=== PATIENT | male | born 1955 | race Caucasian/White ===

== ENCOUNTER 2023-05-19 14:34 | Inpatient (IN) | payer MEDICARE, OTHER ==
[~2023-05-19] VITALS: Ht 177.8 cm; Wt 81.6 kg
[2023-05-19] MEDS ORDERED: IV NORMAL SALINE 1000 ML BAG IV ONE ×2 (14:45→15:45)
--- NOTE | 2023-05-19 15:14 | NUR ---
BIB ambulance from [facility], with multiple c/o. Sacral wound drsg. dated 05/04/23, right arm port drsg. dated 04/30/23 and rodriguez cath bag with brownish sediment noted. Patient cleaned of moderate amount of stool, repositioned for comfort, bedside EKG in progress for MD review. LLE with drsg intact.
[2023-05-19 15:22] LABS: HEMATOCRIT 30.5 % (36.7-47.1); PLATELET COUNT (AUTO) 408 K/uL (152-348)
[2023-05-19] MEDS ORDERED: AMLO-212 PO (15:26)
[2023-05-19] MEDS ORDERED: CYAN100T44 PO (15:26)
[2023-05-19] MEDS ORDERED: ASPI81TA31 PO (15:26)
[2023-05-19] MEDS ORDERED: ASCO500C18 PO (15:26)
[2023-05-19] MEDS ORDERED: ACET-2030 PO (15:26)
[2023-05-19] MEDS ORDERED: [UNRECOGNIZED DRUG - OTHER] PO (15:26)
[2023-05-19] MEDS ORDERED: CHLO25TA2 PO (15:26)
[2023-05-19] MEDS ORDERED: PEG15DRO5 EACHEYE (15:26)
[2023-05-19] MEDS ORDERED: LUBI24CA5 PO (15:26)
[2023-05-19] MEDS ORDERED: ALLO300T2 PO (15:26)
[2023-05-19] MEDS ORDERED: HYDR28.316 TP (15:26)
[2023-05-19] MEDS ORDERED: CYCL5TAB PO (15:38)
[2023-05-19] MEDS ORDERED: FAMO20TA8 PO (15:38)
[2023-05-19] MEDS ORDERED: BISA10SU61 RC (15:38)
[2023-05-19] MEDS ORDERED: METF-867 PO (15:38)
[2023-05-19] MEDS ORDERED: METO100T14 PO (15:38)
[2023-05-19] MEDS ORDERED: NA P133E RC (15:38)
[2023-05-19] MEDS ORDERED: TAMS-3 PO (15:38)
[2023-05-19] MEDS ORDERED: MEGE400O5 PO (15:38)
[2023-05-19] MEDS ORDERED: GABA600T12 PO (15:38)
[2023-05-19] MEDS ORDERED: CEFEPIME HCL 1 G in IV DEXTROSE 5% 50 ML IV ONE (15:45)
[2023-05-19] MEDS ORDERED: VANCOMYCIN IV 1,000 MG in IV DEXTROSE 5% 250 ML IV ONE (15:45)
[2023-05-19] MEDS ORDERED: POTA-88 PO (15:48)
[2023-05-19] MEDS ORDERED: POLY17PO4 PO (15:48)
[2023-05-19] MEDS ORDERED: ROSU10TA2 PO (15:48)
[2023-05-19] MEDS ORDERED: AMIN30LI2 PO (15:48)
[2023-05-19] MEDS ORDERED: INSU100V39 SQ (15:48)
[2023-05-19] MEDS ORDERED: TRAM100T23 PO (15:48)
[2023-05-19] MEDS ORDERED: SENN8.6T19 PO (15:48)
[2023-05-19] MEDS ORDERED: SOLI5TAB2 PO (15:48)
[2023-05-19] MEDS ORDERED: MAGN400O6 PO (15:48)
[2023-05-19] MEDS ORDERED: CHOL100045 PO (15:48)
[2023-05-19] MEDS ORDERED: VIT1CAPS9 PO (15:48)
[2023-05-19] MEDS ORDERED: RIVA10TA PO (15:48)
[2023-05-19] MEDS ORDERED: INSU100I26 SQ (15:48)
[2023-05-19] MEDS ORDERED: MEROPENEM 1GM/NS 100ML IVPB **ER PYXIS ONLY IV ONE ×2 (15:50→23:55)
[2023-05-19] MEDS ORDERED: VANCOMYCIN IV 200 ML ONE ×2 (15:50→23:55)
--- NOTE | 2023-05-19 16:10 | NUR ---
#18FR MCCALL CATH INSERTED, IV FLUIDS INFUSING PER ORDER. PATIENT KEEPS TRYING TO PULL OFF GOWN, B/P CUFF AND PULSE OX. FREQUENT MONITORING DONE. AWAITING LAB RESULTS TO RETURN.
--- NOTE | 2023-05-19 16:12 | NUR ---
DRSG. APPLIED TO SACRAL WOUND, DRSG CHANGED TO PATRICIA MID-LINE. PATIENT GOING OFF UNIT TO RADIOLOGY DEPARTMENT.
--- NOTE | 2023-05-19 16:14 | NUR ---
URINE WAS COLLECTED AND SENT TO LAB.
[2023-05-19 16:19] LABS: *CLARITY,URINE SLIGHTLY CLOUDY (CLEAR); *COLOR,URINE Other (YELLOW); *KETONES,URINE TRACE (NEGATIVE); LEUKOCYTE ESTERASE ,URINE 3+ (NEGATIVE); NITRITE, URINE NEGATIVE (NEGATIVE); PH,URINE 8.5 (5.0-8.0); UGLUCOSE NEGATIVE (NEGATIVE)
[2023-05-19] MEDS ORDERED: ACETAMINOPHEN 650 MG SUPP.RECT RC ONE (16:30)
[2023-05-19 16:35] LABS: *BILIRUBIN,URIN 1+ (NEGATIVE); *BLOOD, URINE 1+ (NEGATIVE)
[2023-05-19 16:59] LABS: *AMPHETAMINE, URINE NEGATIVE (NEGATIVE); *CANNABINOID, URINE NEGATIVE (NEGATIVE); *COCCAINE, URINE NEGATIVE (NEGATIVE); *PHENCYCLIDINE SCREEN,URINE NEGATIVE (NEGATIVE)
[2023-05-19 17:14] LABS: CARBON DIOXIDE 25 mmol/L (21-32); CHLORIDE 99 mmol/L (98-107); CREATININE 1.1 mg/dL (0.6-1.3); POTASSIUM 3.7 mmol/L (3.5-5.1); UREA NITROGEN, BLOOD 32 mg/dL (7-18)
--- NOTE | 2023-05-19 17:17 | NUR ---
PATIENT OFF UNIT.
[2023-05-19 17:22] LABS: ALANINE AMINOTRANSFERASE 23 U/L (16-63); ALKALINE PHOSPHATASE 105 U/L (50-136); ASPARTATE AMINOTRANSFERASE 8 U/L (15-37); BILIRUBIN,DIRECT 0.3 mg/dL (0.0-0.2); BILIRUBIN,TOTAL 0.5 mg/dL (0.2-1.0); TOTAL PROTEIN, SERUM 7.7 g/dL (6.4-8.2)
[2023-05-19 17:23] LABS: ACETAMINOPHEN < 2.0 ug/mL (10-30)
--- NOTE | 2023-05-19 17:27 | NUR ---
CALLED TO GIVE REPORT ON HOLD X 7MINUTES, WILL LATER.
--- NOTE | 2023-05-19 17:45 | NUR ---
2ND CALL TO GIVE REPORT, NURSE WILL CALL BACK AT 6PM.
[2023-05-19 17:50] LABS: THYROID STIMULATING HORMONE 0.731 mIU/mL (0.358-3.740)
[2023-05-19] MEDS ORDERED: DILTIAZEM HCL 25 MG IV IV ONE (18:00)
[2023-05-19] MEDS ORDERED: DILTIAZEM HCL IV 125 MG in IV DEXTROSE 5% 100 ML IV ONE (18:00)
--- NOTE | 2023-05-19 18:03 | NUR ---
PATIENT NOW BEING ADMITTED TO ICU, WILL CALL FOR REPORT.
[2023-05-19] MEDS ORDERED: DILTIAZEM HCL 50 MG IV ONE (18:10)
[2023-05-19] MEDS ORDERED: SWABABLE VALVE TRANSFER SET EA MC ONE (18:39)
[2023-05-19] MEDS ORDERED: IV NORMAL SALINE 250 ML IV ONE (18:39)
[2023-05-19] MEDS ORDERED: IOHEXOL 350 100 ML INFUS..BTL ONE (18:39)
--- NOTE | 2023-05-19 18:59 | NUR ---
PATIENT OFF UNIT FOR CT ANGIO, PHARMACY BROUGHT ERI JOHNIP AT THIS TIME.
--- NOTE | 2023-05-19 19:05 | NUR ---
Pt is noted in bed confused , Moaning and responsive as report is received from the off going nurse that , Sinus Trachy on the Tele monitor and will started on Cardizem gtt. Pt was brought in from [facility] for bodypain, AMS , Sacral and Left Heel Decub, weakness and he is Bed Bound. Pt also have Verbral FX and due for MRI in 2weeks from two per report. Pt care continue as he is been admitted to CCU but no Admitting orders noted yet.
--- NOTE | 2023-05-19 19:55 | NUR ---
Pt care continue as he has been Bolus 20mg as IVPand now started on IV Gtt at 5ML/HR.
--- NOTE | 2023-05-19 20:35 | NUR ---
Pt care continue as [facility] called at [phone] for [address] orders [address] Mccarty ironworker as awaits his call back.
--- NOTE | 2023-05-19 21:08 | NUR ---
Pt care continue as DR. Mccarty page again with no called back yet.
[2023-05-19] MEDS ORDERED: METOPROLOL TARTRATE 5 MG/5 ML VIAL IVP PRN (21:45)
[2023-05-19] MEDS ORDERED: DEXTROSE 50% 50 ML DISP.SYRIN IV PRN (21:45)
--- NOTE | 2023-05-19 21:52 | NUR ---
Pt care continue as DR. Mccarty called back and put in admission orders. Pt care continue.
[2023-05-19] MEDS ORDERED: MEROPENEM 1 G in IV NORMAL SALINE 100 ML IV SCH ×4 (22:00)
--- NOTE | 2023-05-19 22:07 | NUR ---
Pt care continue as report is given to CCU RN Matthew as Pt is going to CCU BED4.
--- NOTE | 2023-05-19 22:24 | NUR ---
Pt is noted off the unit to CCU BED4 . Pt care continue.
[2023-05-19 22:30] VITALS: BP 104/52; TEMP 99.3; O2SAT 95
--- NOTE | 2023-05-19 22:30 | NUR ---
Admitted as TELEMENTRY status in CCU # 4. Addendum: 05/20/23 at 0239 by REGISTRY [facility] INPATIENT RN1 RN Patient admitted as CCU status.
[2023-05-19 23:00] VITALS: BP 103/47; O2SAT 95
[2023-05-19] MEDS: IV D5 1/2 NS 1000 ML 1,000 ML IV PRN (23:01)
[2023-05-20] VITALS (27 sets, daily range): BP systolic 93–141; BP diastolic 51–84; TEMP 98.7–100.9; O2SAT 10–100
[2023-05-20 00:26] LABS: ABG BASE EXCESS -1.2 mmol/L; ABG PCO2 23.5 mmHg (35.0-45.0); ABG PH 7.547 (7.350-7.450); ABG PO2 81.3 mmHg (75.0-100.0); ABG SITE RIGHT RADIAL; ABG TOTAL HEMOGLOBIN 10.8 G/dL (13.5-18.0); COHb 0.2 % (0.5-1.5); MetHb 0.2 % (0.0-1.5); O2Hb 96.1 % (94.0-97.0); VENT MODE ROOM AIR
[2023-05-20] MEDS: INSULIN REGULAR, HUMAN 300 UNIT/3 ML VIAL SQ PRN ×4 (00:53→18:13)
[2023-05-20] MEDS: MORPHINE SULFATE 2 MG/1 ML DISP.SYRIN IV PRN ×3 (02:20→19:50)
[2023-05-20] MEDS ORDERED: VANCOMYCIN IV 1,000 MG in IV DEXTROSE 5% 250 ML IV ONE (04:00)
[2023-05-20] MEDS ORDERED: MEROPENEM 1GM/NS 100ML IVPB **ER PYXIS ONLY IV ONE (04:31)
[2023-05-20 05:10] LABS: HEMATOCRIT 26.1 % (36.7-47.1); MEAN CORPUSCULAR HEMOGLOBIN 28.8 uug (23.8-33.4); MEAN CORPUSCULAR VOLUME 88.9 fL (73.0-96.2); PLATELET COUNT (AUTO) 310 K/uL (152-348)
[2023-05-20 05:39] LABS: THYROID STIMULATING HORMONE 0.411 mIU/mL (0.358-3.740)
[2023-05-20 05:41] LABS: BILIRUBIN,TOTAL 0.4 mg/dL (0.2-1.0); CREATININE 1.2 mg/dL (0.6-1.3); MAGNESIUM 1.3 mg/dL (1.8-2.4); POTASSIUM 3.7 mmol/L (3.5-5.1); TOTAL PROTEIN, SERUM 6.6 g/dL (6.4-8.2)
[2023-05-20] MEDS: BLOOD SUGAR DIAGNOSTIC 1 EACH STRIP VI SCH ×5 (05:47→23:26)
[2023-05-20] MEDS: MEROPENEM 1 G in IV NORMAL SALINE 100 ML IV SCH ×3 (08:56→23:11)
[2023-05-20] MEDS: PANTOPRAZOLE SODIUM 40 MG VIAL IV SCH (09:00)
[2023-05-20] MEDS ORDERED: ENOXAPARIN SODIUM 40 MG/0.4 ML DISP.SYRIN SQ SCH (09:00)
[2023-05-20] MEDS: VANCOMYCIN IV 1,500 MG in IV DEXTROSE 5% 500 ML IV SCH (12:30)
[2023-05-20] MEDS ORDERED: METF-442 PO (12:40)
[2023-05-20] MEDS ORDERED: DILTIAZEM HCL IV 125 MG in IV NORMAL SALINE 100 ML IV PRN (13:15)
[2023-05-20] MEDS ORDERED: AMIODARONE HCL IV 450 MG in IV DEXTROSE 5% 250 ML IV PRN (13:45)
[2023-05-20] MEDS ORDERED: AMIODARONE HCL IV 150 MG in IV DEXTROSE 5% 100 ML IV ONE (14:30)
[2023-05-20] MEDS: MAGNESIUM SULFATE/D5W 100 ML IV SCH ×4 (15:35→18:27)
[2023-05-20] MEDS: ACETAMINOPHEN 650 MG SUPP.RECT RC PRN (17:53)
[2023-05-20] MEDS: DILTIAZEM HCL IV 125 MG in IV NORMAL SALINE 100 ML IV PRN (18:19)
[2023-05-20] MEDS ORDERED: ENOXAPARIN SODIUM 80 MG/0.8 ML DISP.SYRIN SQ ONE (19:30)
[2023-05-20] MEDS: IV D5 1/2 NS 1000 ML 1,000 ML IV PRN (20:56)
[2023-05-20] MEDS ORDERED: PHENYLEPHRINE IV 50 MG in IV NORMAL SALINE 245 ML IV PRN (21:00)
[2023-05-20] MEDS: SODIUM HYPOCHLORITE 0.125% (QUARTER STRENGTH) 473 ML BOTTLE TP SCH (22:25)
[2023-05-21] VITALS (35 sets, daily range): BP systolic 104–145; BP diastolic 25–79; TEMP 97.4–99.7; O2SAT 95–100
[2023-05-21] MEDS: MORPHINE SULFATE 2 MG/1 ML DISP.SYRIN IV PRN ×2 (02:14→09:23)
[2023-05-21] MEDS: VANCOMYCIN IV 1,500 MG in IV DEXTROSE 5% 500 ML IV SCH ×2 (04:28→22:38)
[2023-05-21 04:46] LABS: HEMATOCRIT 25.2 % (36.7-47.1); MEAN CORPUSCULAR HEMOGLOBIN 29.2 uug (23.8-33.4); MEAN CORPUSCULAR VOLUME 88.2 fL (73.0-96.2); PLATELET COUNT (AUTO) 238 K/uL (152-348)
[2023-05-21 05:01] LABS: BILIRUBIN,TOTAL 0.5 mg/dL (0.2-1.0); CREATININE 0.9 mg/dL (0.6-1.3); MAGNESIUM 1.7 mg/dL (1.8-2.4); PHOSPHOROUS 3.3 mg/dL (2.5-4.9); TOTAL PROTEIN, SERUM 6.3 g/dL (6.4-8.2)
[2023-05-21 05:03] LABS: POTASSIUM 2.7 mmol/L (3.5-5.1)
[2023-05-21] MEDS: BLOOD SUGAR DIAGNOSTIC 1 EACH STRIP VI SCH ×3 (05:37→18:19)
[2023-05-21] MEDS: INSULIN REGULAR, HUMAN 300 UNIT/3 ML VIAL SQ PRN ×3 (05:47→19:26)
[2023-05-21] MEDS: MEROPENEM 1 G in IV NORMAL SALINE 100 ML IV SCH ×2 (08:27→15:06)
[2023-05-21] MEDS: PANTOPRAZOLE SODIUM 40 MG VIAL IV SCH (08:31)
[2023-05-21] MEDS: ENOXAPARIN SODIUM 80 MG/0.8 ML DISP.SYRIN SQ SCH ×2 (08:33→20:11)
[2023-05-21] MEDS: DILTIAZEM HCL IV 125 MG in IV NORMAL SALINE 100 ML IV PRN (08:39)
[2023-05-21] MEDS ORDERED: MAGNESIUM SULFATE/D5W 100 ML IV SCH (08:45)
[2023-05-21] MEDS: SODIUM HYPOCHLORITE 0.125% (QUARTER STRENGTH) 473 ML BOTTLE TP SCH ×2 (08:54→17:06)
[2023-05-21] MEDS: POTASSIUM CHLORIDE 50 ML IV SCH ×4 (08:58→14:52)
--- NOTE | 2023-05-21 10:02 | NUR ---
WOUND CARE CONSULT: PT PRESENTS WITH STAGE 4 PRESSURE ULCER TO SACRUM, LEFT HIP SCARRING AND BILATERAL HEEL DEEP TISSUE INJURIES WITH ESCHAR TO LEFT HEEL, ALL PRESENT ON ADMISSION. DR WINTER AND DR BOOKER CALLED FOR SURGICAL AND DPM CONSULTS. DISCUSSED SKIN PROTECTION WITH NURSING STAFF. DAKINS PACKING PREVIOUSLY ORDERED BY PMD. PT IS ON FIRST STEP [facility]. IN AGREEMENT WITH PLAN OF CARE. Addendum: 05/21/23 at 1004 by JOSE BOWLES RN Amended: Links added.
[2023-05-21] MEDS ORDERED: ALBUMIN HUMAN 25% 50 ML IV ONE (12:15)
[2023-05-21] MEDS: MORPHINE SULFATE 4 MG/1 ML DISP.SYRIN IV PRN ×2 (15:05→20:10)
[2023-05-21] MEDS: IV D5 1/2 NS 1000 ML 1,000 ML IV PRN (17:16)
--- NOTE | 2023-05-21 19:15 | NUR ---
Pt is noted responsive and more alert per report received from the off going nurse with fall precautions in place . A.FIB on the Tele monitor with Cardizem Gtt at 5ML/HR , Room Air with Diminished Lungs with skin dry, warm but skin areas noted , please see skin assessment in chart, Right Upper PICC Line and Left Upper Arm Mid Line noted , also Pt has a Rondon Cath. Pt is now on Cardia Diet as he eat with no S/S off distress during Dinner per report by Day shift RN. Pt care continue as he will be monitor closely, turn and reposition for comfort with IVF D51/2NS at 75ML/HR and Antibiotic therapy.
[2023-05-21] MEDS: INSULIN GLARGINE,HUM 300 UNITS/3 ML CARTRIDGE SQ SCH (20:20)
[2023-05-22] VITALS (31 sets, daily range): BP systolic 100–171; BP diastolic 20–87; TEMP 97.3–98.3; O2SAT 99–100
[2023-05-22] MEDS: MEROPENEM 1 G in IV NORMAL SALINE 100 ML IV SCH ×4 (00:02→23:49)
[2023-05-22] MEDS: BLOOD SUGAR DIAGNOSTIC 1 EACH STRIP VI SCH ×4 (00:05→17:08)
[2023-05-22] MEDS: INSULIN REGULAR, HUMAN 300 UNIT/3 ML VIAL SQ PRN ×5 (00:08→23:59)
--- NOTE | 2023-05-22 00:16 | NUR ---
Pt remain full code , A.FIB on the tele monitor with Cardizem gtt at 5ML/HR therapy in progress and IVF with Antibiotic therapy in progress as Morphine 4mg IVP noted effective with pain now is 0/10. Pt care continue as he is been turn and reposition Q2HRS for comfort.
--- NOTE | 2023-05-22 04:35 | NUR ---
Pt is noted sleeping after AM and wound care done as he remain A.FIB with Cardizem gtt at 5ML/HR and IVF therapy in progress. Pt care continue.
[2023-05-22 05:01] LABS: HEMATOCRIT 26.2 % (36.7-47.1); MEAN CORPUSCULAR HEMOGLOBIN 28.9 uug (23.8-33.4); MEAN CORPUSCULAR VOLUME 87.4 fL (73.0-96.2); PLATELET COUNT (AUTO) 237 K/uL (152-348)
[2023-05-22 05:39] LABS: CREATININE 0.8 mg/dL (0.6-1.3); MAGNESIUM 1.6 mg/dL (1.8-2.4); PHOSPHOROUS 2.4 mg/dL (2.5-4.9)
[2023-05-22 05:40] LABS: POTASSIUM 2.8 mmol/L (3.5-5.1)
[2023-05-22] MEDS: MORPHINE SULFATE 4 MG/1 ML DISP.SYRIN IV PRN ×2 (05:46→22:39)
--- NOTE | 2023-05-22 07:00 | NUR ---
Report from [facility] - manager risk management nurse. Patient is stable and on cardizem drip at 5mg/hr. Dr Mckenna paged about patients potassium and magnesium levels.
--- NOTE | 2023-05-22 07:21 | NUR ---
Pt is care continue as report is given to the AM receiving nurse and to follow up with DR. Mccarty for LAB Level off Potassium 2.8.
[2023-05-22] MEDS: PROTEIN SUPPLEMENT (PROSTAT) 30 ML LIQUID PO SCH ×3 (07:42→16:51)
[2023-05-22] MEDS ORDERED: POTASSIUM PHOSPHATE MM 15 MMOL in IV NORMAL SALINE 250 ML IV ONE (08:00)
[2023-05-22] MEDS: PANTOPRAZOLE SODIUM 40 MG VIAL IV SCH (08:08)
[2023-05-22] MEDS: ENOXAPARIN SODIUM 80 MG/0.8 ML DISP.SYRIN SQ SCH ×2 (08:10→21:00)
[2023-05-22] MEDS: SODIUM HYPOCHLORITE 0.125% (QUARTER STRENGTH) 473 ML BOTTLE TP SCH ×2 (08:57→16:52)
[2023-05-22] MEDS ORDERED: MAGNESIUM SULFATE/D5W 100 ML IV SCH (09:00)
[2023-05-22] MEDS: IV D5 1/2 NS 1000 ML 1,000 ML IV PRN (10:48)
[2023-05-22] MEDS: DILTIAZEM HCL IV 125 MG in IV NORMAL SALINE 100 ML IV PRN (12:30)
[2023-05-22] MEDS: VANCOMYCIN IV 1,500 MG in IV DEXTROSE 5% 500 ML IV SCH ×2 (16:50→22:38)
--- NOTE | 2023-05-22 19:00 | NUR ---
1900 Received in bed able to make needs known lungs clear, on Cardizem 5mg , and D5 1/2 NS @75cc midline and picc line clean and dry no redness sacral decub dressing clean and dry, bilateral heel DTI dressing clean , elevate bilateral heel. patient ate 100% dinner , no signs of distress rodriguez cath intact.
--- NOTE | 2023-05-22 20:52 | NUR ---
blood sugar is 253 mg/dl, 15 unit lantus given
[2023-05-22] MEDS: INSULIN GLARGINE,HUM 300 UNITS/3 ML CARTRIDGE SQ SCH (20:58)
[2023-05-23] VITALS (23 sets, daily range): BP systolic 112–161; BP diastolic 21–98; TEMP 97.8–98.3; O2SAT 97–100
[2023-05-23] MEDS: IV D5 1/2 NS 1000 ML 1,000 ML IV PRN ×2 (01:23→19:00)
[2023-05-23 05:20] LABS: HEMATOCRIT 25.1 % (36.7-47.1); MEAN CORPUSCULAR HEMOGLOBIN 28.7 uug (23.8-33.4); MEAN CORPUSCULAR VOLUME 87.1 fL (73.0-96.2); PLATELET COUNT (AUTO) 217 K/uL (152-348)
--- NOTE | 2023-05-23 05:26 | NUR ---
Sacral wound clean and packed with dakin, and covered with abd dressing . turned every two hours. no signs of discomfort bilateral heel wipe clean and optiforn dressing applied . heel elevated
[2023-05-23] MEDS: BLOOD SUGAR DIAGNOSTIC 1 EACH STRIP VI SCH ×4 (05:37→17:11)
[2023-05-23] MEDS: INSULIN REGULAR, HUMAN 300 UNIT/3 ML VIAL SQ PRN ×3 (05:38→17:16)
[2023-05-23 05:44] LABS: BILIRUBIN,TOTAL 0.5 mg/dL (0.2-1.0); CREATININE 0.9 mg/dL (0.6-1.3); MAGNESIUM 1.4 mg/dL (1.8-2.4); TOTAL PROTEIN, SERUM 6.3 g/dL (6.4-8.2)
[2023-05-23 05:50] LABS: POTASSIUM 2.8 mmol/L (3.5-5.1)
--- NOTE | 2023-05-23 06:29 | NUR ---
POTASSIUM IS 2.8 , CALLED MD TILLEY, NEW ORDER GIVEN TO GIVE POTASSIUM 60 MEQ IV
[2023-05-23] MEDS: MEROPENEM 1 G in IV NORMAL SALINE 100 ML IV SCH ×3 (07:13→23:50)
[2023-05-23] MEDS: POTASSIUM CHLORIDE 50 ML IV SCH ×2 (07:13→08:24)
[2023-05-23] MEDS: PROTEIN SUPPLEMENT (PROSTAT) 30 ML LIQUID PO SCH ×3 (07:24→16:25)
--- NOTE | 2023-05-23 07:31 | NUR ---
Recieved patient from assembler 1st shift nurse David BARTON. Patient is sleeping and resting comfortably HR in the 80s NSR and cardizem drip has been turned off last night Merrem and Potassium have been started.
[2023-05-23] MEDS: PANTOPRAZOLE SODIUM 40 MG VIAL IV SCH (08:54)
[2023-05-23] MEDS: SODIUM HYPOCHLORITE 0.125% (QUARTER STRENGTH) 473 ML BOTTLE TP SCH ×2 (08:54→16:24)
[2023-05-23] MEDS: ENOXAPARIN SODIUM 80 MG/0.8 ML DISP.SYRIN SQ SCH (09:01)
--- NOTE | 2023-05-23 09:30 | NUR ---
Victorino Mckenna and Pat met and explained the disease process and plans to the family and the patient and were able to answer all of their questions
[2023-05-23] MEDS: POTASSIUM CHLORIDE 10 MEQ, LIDOCAINE-MPF 1% 1 ML in IV DEXTROSE 5% 100 ML IV SCH ×4 (10:27→13:41)
[2023-05-23] MEDS ORDERED: POTASSIUM CHLORIDE 10 MEQ, LIDOCAINE-MPF 1% 1 ML in IV DEXTROSE 5% 100 ML IV SCH (10:30)
[2023-05-23] MEDS ORDERED: POLYVINYL ALCOHOL OPHT DROPS 15 ML BOTTLE EACHEYE PRN (11:15)
[2023-05-23] MEDS: MAGNESIUM SULFATE/D5W 100 ML IV SCH ×4 (11:20→15:05)
[2023-05-23] MEDS: METOPROLOL TARTRATE 50 MG TABLET PO SCH ×2 (11:21→21:54)
[2023-05-23] MEDS: ASCORBIC ACID 500 MG TABLET PO SCH (11:33)
[2023-05-23] MEDS: ZINC SULFATE 220 MG CAPSULE PO SCH (11:33)
[2023-05-23] MEDS ORDERED: NEUTRA PHOS PACKET PO SCH (16:30)
[2023-05-23] MEDS: RIVAROXABAN 10 MG TABLET PO SCH (17:09)
[2023-05-23] MEDS: MORPHINE SULFATE 2 MG/1 ML DISP.SYRIN IV PRN (18:10)
--- NOTE | 2023-05-23 19:20 | NUR ---
Pt is noted responsive and more alert now per report received from the off going nurse with fall precautions in place . A.FIB on the Tele monitor as pt is off Cardizem gtt and now on Lopressor 50 PO and Xarelto 20mg PO , Room Air with Diminished Lungs with skin dry, warm but skin areas noted , please see skin assessment in chart, Right Upper PICC Line and Left Upper Arm Mid Line noted , also Pt has a Rondon Cath. Pt care continue as he will be monitor closely, turn and reposition for comfort with IVF D51/2NS at 75ML/HR and Antibiotic therapy.
[2023-05-23] MEDS: INSULIN GLARGINE,HUM 300 UNITS/3 ML CARTRIDGE SQ SCH (21:58)
[2023-05-23] MEDS: VANCOMYCIN IV 1,500 MG in IV DEXTROSE 5% 500 ML IV SCH (23:49)
[2023-05-23] MEDS: MORPHINE SULFATE 4 MG/1 ML DISP.SYRIN IV PRN (23:52)
[2023-05-24] VITALS (22 sets, daily range): BP systolic 97–169; BP diastolic 19–76; TEMP 97.7–98.4; O2SAT 95–100
[2023-05-24] MEDS: BLOOD SUGAR DIAGNOSTIC 1 EACH STRIP VI SCH ×5 (00:01→21:24)
--- NOTE | 2023-05-24 00:06 | NUR ---
Pt remain full code , A.FIB on the tele monitor with IVF with Antibiotic therapy in progress as Morphine 4mg IVP given for pain 08/11 . Pt care continue as he is been turn and reposition Q2HRS for comfort.
--- NOTE | 2023-05-24 04:35 | NUR ---
Pt is noted sleeping after AM and wound care done as he remain A.FIB on the Tele monitor and IVF therapy in progress. Pt care continue.
[2023-05-24 04:55] LABS: HEMATOCRIT 25.6 % (36.7-47.1); MEAN CORPUSCULAR HEMOGLOBIN 28.9 uug (23.8-33.4); MEAN CORPUSCULAR VOLUME 86.2 fL (73.0-96.2); PLATELET COUNT (AUTO) 215 K/uL (152-348)
[2023-05-24 05:03] LABS: CREATININE 0.7 mg/dL (0.6-1.3); MAGNESIUM 1.8 mg/dL (1.8-2.4); POTASSIUM 3.1 mmol/L (3.5-5.1)
[2023-05-24] MEDS: IV D5 1/2 NS 1000 ML 1,000 ML IV PRN (06:07)
[2023-05-24] MEDS: INSULIN REGULAR, HUMAN 300 UNIT/3 ML VIAL SQ PRN ×3 (06:54→17:57)
--- NOTE | 2023-05-24 07:10 | NUR ---
Pt is care continue as report given to the AM receiving nurse as CT scan will be done after AM because there was no enrollment eligibility representative during the shift production associate and Sheet Metal Worker Maintenance is aware , also Covid19 test done.
--- NOTE | 2023-05-24 07:30 | NUR ---
Recieved report from Pam BARTON on shift engineer. Pt is stable and NSR. sleeping comfortably with no s/s of pain at this time.
[2023-05-24] MEDS: MEROPENEM 1 G in IV NORMAL SALINE 100 ML IV SCH ×3 (07:52→23:09)
[2023-05-24] MEDS: PROTEIN SUPPLEMENT (PROSTAT) 30 ML LIQUID PO SCH ×3 (07:54→17:52)
[2023-05-24] MEDS: ASCORBIC ACID 500 MG TABLET PO SCH (08:03)
[2023-05-24] MEDS: METOPROLOL TARTRATE 50 MG TABLET PO SCH ×2 (08:03→21:24)
[2023-05-24] MEDS: ZINC SULFATE 220 MG CAPSULE PO SCH (08:03)
[2023-05-24] MEDS: PANTOPRAZOLE SODIUM 40 MG VIAL IV SCH (08:03)
[2023-05-24] MEDS: SODIUM HYPOCHLORITE 0.125% (QUARTER STRENGTH) 473 ML BOTTLE TP SCH ×2 (08:05→17:55)
[2023-05-24] MEDS ORDERED: POTASSIUM CHLORIDE 20 MEQ POWDER PACKET GT ONE (08:30)
[2023-05-24] MEDS: MAGNESIUM SULFATE/D5W 100 ML IV SCH ×2 (08:45→09:49)
--- NOTE | 2023-05-24 09:00 | NUR ---
pt seen by Dr Stewart and spoke to him about his fractures in his spine and answered the patients questions.
--- NOTE | 2023-05-24 10:30 | NUR ---
Dr Mckenna saw the patient and explained to him about his spine fractures and ansewred his questions about ongoing care. I gave Dr Mckenna the sisters phone number and informed him that she wanted to know about the results of the CT scans and bone density scan.
[2023-05-24] MEDS ORDERED: POTASSIUM PHOSPHATE MM 15 MMOL in IV NORMAL SALINE 250 ML IV ONE (11:00)
[2023-05-24] MEDS ORDERED: DEXTROSE 50% 50 ML DISP.SYRIN IV PRN (15:00)
[2023-05-24 17:43] LABS: *OCCULT BLOOD STOOL NEGATIVE (NEGATIVE)
[2023-05-24] MEDS: RIVAROXABAN 10 MG TABLET PO SCH (17:55)
--- NOTE | 2023-05-24 19:15 | NUR ---
Pt is noted responsive and more alert now per report received from the off going nurse with fall precautions in place and call call light in reach . Sinus Rhythm on the Tele monitor as he is Tele bed status with Lopressor 50 PO and Xarelto 20mg PO , Room Air with Diminished Lungs with skin dry, warm but skin areas noted , please see skin assessment in chart, Right Upper PICC Line and Left Upper Arm Mid Line noted , also Pt has a Rondon Cath. Pt care continue as he will be monitor closely, turn and reposition for comfort with Antibiotic therapy.
[2023-05-24] MEDS: INSULIN GLARGINE,HUM 300 UNITS/3 ML CARTRIDGE SQ SCH (21:25)
[2023-05-24] MEDS: MORPHINE SULFATE 4 MG/1 ML DISP.SYRIN IV PRN (21:26)
--- NOTE | 2023-05-24 22:59 | NUR ---
Pt care continue as 2300 dose Vancomycin 1.5g IVPB is on hold after spoken with [facility] with Vancomycin Trough is 22.7.
[2023-05-24] MEDS: VANCOMYCIN IV 1,500 MG in IV DEXTROSE 5% 500 ML IV SCH (23:00)
[2023-05-25] VITALS (11 sets, daily range): BP systolic 104–152; BP diastolic 22–91; TEMP 97.7–98.8; O2SAT 90–100
--- NOTE | 2023-05-25 01:20 | NUR ---
Pt remain full code , Sinus Rhythm on the tele monitor with IVF with Antibiotic therapy in progress as Morphine 4mg IVP given for pain noted effective . Pt care continue as he is been turn and reposition Q2HRS for comfort.
--- NOTE | 2023-05-25 05:29 | NUR ---
Pt is noted sleeping after AM and wound care done as he remain on Antibiotic therapy in progress. Pt care continue.
[2023-05-25] MEDS: PANTOPRAZOLE SODIUM 40 MG TABLET.DR PO SCH (06:34)
[2023-05-25] MEDS: BLOOD SUGAR DIAGNOSTIC 1 EACH STRIP VI SCH ×4 (06:42→20:13)
[2023-05-25] MEDS: INSULIN REGULAR, HUMAN 300 UNIT/3 ML VIAL SQ PRN ×4 (06:45→22:29)
--- NOTE | 2023-05-25 07:18 | NUR ---
Pt care continue as report is given to the AM receiving nurse.
[2023-05-25 07:34] LABS: HEMATOCRIT 26.9 % (36.7-47.1); MEAN CORPUSCULAR HEMOGLOBIN 28.8 uug (23.8-33.4); MEAN CORPUSCULAR VOLUME 86.6 fL (73.0-96.2); PLATELET COUNT (AUTO) 267 K/uL (152-348)
[2023-05-25] MEDS: MORPHINE SULFATE 4 MG/1 ML DISP.SYRIN IV PRN (07:39)
[2023-05-25] MEDS: ASCORBIC ACID 500 MG TABLET PO SCH (07:52)
[2023-05-25] MEDS: ZINC SULFATE 220 MG CAPSULE PO SCH (07:52)
[2023-05-25] MEDS: MEROPENEM 1 G in IV NORMAL SALINE 100 ML IV SCH (07:52)
[2023-05-25] MEDS: SODIUM HYPOCHLORITE 0.125% (QUARTER STRENGTH) 473 ML BOTTLE TP SCH ×2 (07:53→18:30)
[2023-05-25 08:01] LABS: CREATININE 0.7 mg/dL (0.6-1.3); MAGNESIUM 1.7 mg/dL (1.8-2.4); POTASSIUM 3.5 mmol/L (3.5-5.1)
[2023-05-25] MEDS ORDERED: POTASSIUM CHLORIDE 20 MEQ POWDER PACKET GT ONE (08:15)
[2023-05-25] MEDS: PROTEIN SUPPLEMENT (PROSTAT) 30 ML LIQUID PO SCH ×3 (08:46→17:00)
[2023-05-25] MEDS: METOPROLOL TARTRATE 50 MG TABLET PO SCH ×2 (08:48→22:49)
[2023-05-25] MEDS: MAGNESIUM SULFATE/D5W 100 ML IV SCH ×2 (08:49→09:48)
[2023-05-25] MEDS ORDERED: METOPROLOL TARTRATE 50 MG TABLET PO SCH (09:00)
[2023-05-25] MEDS ORDERED: VANCOMYCIN IV 1,500 MG in IV DEXTROSE 5% 500 ML IV SCH (09:00)
[2023-05-25 11:12] LABS: A/G RATIO 0.5 (0.7-1.7); ALBUMIN 1.9 g/dL (2.9-4.4); ALPHA-1-GLOBULIN 0.3 g/dL (0.0-0.4); ALPHA-2-GLOBULIN 1.3 g/dL (0.4-1.0); BETA GLOBULIN 0.7 g/dL (0.7-1.3); GAMMA GLOBULIN 1.5 g/dL (0.4-1.8); GLOBULIN, TOTAL 3.8 g/dL (2.2-3.9); M-SPIKE Not Observed g/dL (Not Observed)
[2023-05-25] MEDS ORDERED: MAGNESIUM OXIDE 400 MG TABLET PO SCH (12:30)
[2023-05-25] MEDS: MORPHINE SULFATE 2 MG/1 ML DISP.SYRIN IV PRN ×2 (13:06→20:06)
--- NOTE | 2023-05-25 15:43 | NUR ---
patient did not consume completely 40 meq of potassium packets. Informed Dr. polanco and ordered 20 meq of kcl IV instead.
[2023-05-25] MEDS: POTASSIUM CHLORIDE 50 ML IV SCH ×2 (16:03→16:58)
[2023-05-25] MEDS ORDERED: NEUTRA PHOS PACKET PO ONE (16:30)
--- NOTE | 2023-05-25 16:36 | NUR ---
changed wound dressing per treatment orders
[2023-05-25] MEDS: RIVAROXABAN 10 MG TABLET PO SCH (18:34)
--- NOTE | 2023-05-25 19:30 | NUR ---
Received Patient from CCU; Given by Fabienne; Patient AAO x3; Patient requested for pain Meds. pain scale of 8; Pain Meds. was given;Safety measure initiate and call light within reach.
--- NOTE | 2023-05-25 22:19 | NUR ---
Patient has lots of anxiety, yelling and screaming for no apparent reason, patient given Morphine 2mg IV push for pain and comfort, still screaming, kept clean dry and comfortable, notify Dr. Mckenna about the behavior, with order.
[2023-05-25] MEDS: INSULIN GLARGINE,HUM 300 UNITS/3 ML CARTRIDGE SQ SCH (22:26)
[2023-05-26] MEDS: LORAZEPAM 2 MG/1 ML VIAL IV PRN ×4 (00:48→23:46)
[2023-05-26] MEDS: MORPHINE SULFATE 4 MG/1 ML DISP.SYRIN IV PRN ×3 (04:47→19:45)
--- NOTE | 2023-05-26 05:02 | NUR ---
Patient awake yelling and screaming again, turn and reposition, kept clean and dry, given Morphine 4mg iv for severe gen, back pain. Patient has multiple episode of pulling out tele monitoring devices, removing gowns, tried to pulled out rodriguez cath, risk for injury, MD notified with order of vel soft wrist restraints.
[2023-05-26] MEDS: PANTOPRAZOLE SODIUM 40 MG TABLET.DR PO SCH (06:07)
[2023-05-26] MEDS ORDERED: SILVER NITRATE APPLICATOR STICK EACH TP ONE (07:30)
[2023-05-26] MEDS ORDERED: LIDOCAINE 1%-EPI 1:100,000 20 ML VIAL IJ ONE (07:30)
[2023-05-26] MEDS: BLOOD SUGAR DIAGNOSTIC 1 EACH STRIP VI SCH ×4 (07:38→21:01)
--- NOTE | 2023-05-26 08:11 | NUR ---
RECEIVED PATIENT IN BED AWAKE ALERT TO SELF WITH CONFUSSION AND DISORIENTATION UNABLE TO MAKE NEEDS KNOWN ON ROOM AIR WITH NO SOB AT THIS TIME HE HAS BILATERAL WRIST RESTRAINTS FOR SAFETY MCCALL CATH IS INTACT FROR GRAVITY DRAINAGE WITH NO HEMATURIA AT THIS TIME PATIENT IS AGITATED AND RESTLESS YELLING UNABLE TO RELAY NEEDS UNABLE TO REDIRECT PULLING ON HIS RESTRAINTS REMOVING HIS TELEMETRY OCTAVIA PATIENT MEDICATED AT THIS TIME WITH ATIVAN TO ASSIST HIM WITH SETTLING DOWN WILL CONTINUE TO OBSERVE.
[2023-05-26] MEDS: INSULIN REGULAR, HUMAN 300 UNIT/3 ML VIAL SQ PRN ×4 (08:18→21:14)
[2023-05-26] MEDS: PROTEIN SUPPLEMENT (PROSTAT) 30 ML LIQUID PO SCH ×3 (08:30→16:11)
[2023-05-26] MEDS: REMEDY ESSENTIAL ZINC PASTE 113 GM TOP PRN (08:30)
[2023-05-26] MEDS: ZINC SULFATE 220 MG CAPSULE PO SCH (08:55)
[2023-05-26] MEDS: ASCORBIC ACID 500 MG TABLET PO SCH (08:55)
[2023-05-26] MEDS: METOPROLOL TARTRATE 50 MG TABLET PO SCH ×2 (08:55→21:10)
[2023-05-26] MEDS: SODIUM HYPOCHLORITE 0.125% (QUARTER STRENGTH) 473 ML BOTTLE TP SCH ×2 (10:13→16:12)
--- NOTE | 2023-05-26 10:30 | NUR ---
CALLED PATIENTS SISTER ALEX AND CONSCENT OBTAINED FOR SERIAL WOUND DEBRIDEMENT ORDERED AND DOCUMENTED.
--- NOTE | 2023-05-26 11:07 | NUR ---
PATIENT SLEPT AFTER THE ATIVAN AND NOW HE IS AWAKE AND STARTED YELLING AND SCREAMING AT THE TOP OF HIS VOICE VERY RESTLESS WITH FACIAL GRIMACING UNABLE TO REDIRECT MEDICATED WITH MORPHINE FOR PAIN ORDERED WILL CONTINUE TO OBSERVE.
[2023-05-26 11:34] VITALS: BP 102/52; TEMP 98.1; O2SAT 98
[2023-05-26] MEDS: METRONIDAZOLE 500 MG TABLET PO SCH ×2 (15:54→21:10)
[2023-05-26 16:04] VITALS: BP 109/55; TEMP 98; O2SAT 98
--- NOTE | 2023-05-26 16:30 | NUR ---
HANG SCHWARTZ SURGICAL SOCIAL MEDIA STRATEGIST HERE AND DID A BEDSIDE DEBRIDEMENT TO THE ACRAL WOUND AND SENT SPECIMEN TO THE LAB ORDERED.
--- NOTE | 2023-05-26 16:45 | NUR ---
PATIENT SCREAMING AT THE TOP OF HIS VOICE PULLING AND TUGGING ON HIS CATHETER VERY CONFUSED RESTLESS UNABLE TO REDIRECT MEDICATED WITH ATIVAN ORDERED AT THIS TIME.
[2023-05-26] MEDS: RIVAROXABAN 10 MG TABLET PO SCH (17:26)
--- NOTE | 2023-05-26 18:00 | NUR ---
HE IS QUIETER BUT STILL YELLS OFF AND ON IN LOWER TONE MADE COMFORTABLE WILL OBSERVE.
--- NOTE | 2023-05-26 19:35 | NUR ---
Received patient in bed, awake but confused x2; room air with ot
--- NOTE | 2023-05-26 19:35 | NUR ---
Received patient in bed ; VVS; AAOx2;room air O2 sat.99; continue monitor; continue plan of care
[2023-05-26 21:11] VITALS: BP 116/62; TEMP 98; O2SAT 99
[2023-05-26] MEDS: INSULIN GLARGINE,HUM 300 UNITS/3 ML CARTRIDGE SQ SCH (21:13)
[2023-05-27 00:03] VITALS: BP 135/60; TEMP 98.2; O2SAT 98
[2023-05-27] MEDS: MORPHINE SULFATE 4 MG/1 ML DISP.SYRIN IV PRN ×2 (02:37→08:49)
[2023-05-27] MEDS: PANTOPRAZOLE SODIUM 40 MG TABLET.DR PO SCH (06:02)
[2023-05-27] MEDS: METRONIDAZOLE 500 MG TABLET PO SCH ×2 (06:03→13:26)
[2023-05-27] MEDS: BLOOD SUGAR DIAGNOSTIC 1 EACH STRIP VI SCH ×4 (06:03→23:54)
--- NOTE | 2023-05-27 06:20 | NUR ---
Patient awake eyes open, no sob no chest pain, tele monitor sinus rhythm sinus tachy up to 130, patient continue on pain management due to back pain, and gen body pain, patient has multiple episode of pulling out tele monitor box, pulling out gown, and iv lines, patient un redirectable, patient kept clean dry, turn and reposition, rodriguez cath patent draining with yellow color urine in moderate amount, no s/s of hypo/hypergylcemia noted, no s/s of distress.
[2023-05-27 07:27] LABS: HEMATOCRIT 28.1 % (36.7-47.1); MEAN CORPUSCULAR HEMOGLOBIN 28.5 uug (23.8-33.4); MEAN CORPUSCULAR VOLUME 88.7 fL (73.0-96.2); PLATELET COUNT (AUTO) 384 K/uL (152-348)
[2023-05-27 07:52] LABS: MAGNESIUM 1.9 mg/dL (1.8-2.4); PHOSPHOROUS 4.1 mg/dL (2.5-4.9); POTASSIUM 3.8 mmol/L (3.5-5.1)
[2023-05-27] MEDS: INSULIN REGULAR, HUMAN 300 UNIT/3 ML VIAL SQ PRN ×4 (08:06→23:59)
[2023-05-27] MEDS: ZINC SULFATE 220 MG CAPSULE PO SCH (08:48)
[2023-05-27] MEDS: ASCORBIC ACID 500 MG TABLET PO SCH (08:48)
[2023-05-27] MEDS: METOPROLOL TARTRATE 50 MG TABLET PO SCH (08:49)
--- NOTE | 2023-05-27 08:49 | NUR ---
PATIENT IN BED AWAKE EYES OPEN MAKES EYE CONTACT BUT IS NON VERBAL PATIENT IS SCREAMING AND YELLING AND MOANING AT THIS TIME REPOSITIONED FOR COMFORT UNABLE TO REDIRECT MEDICATED WITH MORPHINE ORDERED PATIENT MADE COMFORTABLE SPOON FED ATE 25 PERCENT PATIENT IS A FEEDER ON ROOM AIR WITH NO SHORTNESS [place] [address] AFEBRILE ON ROOM AIR WITH NO SHORTNESS OF BREATH AT THIS TIME CONTINUE TO NEED BILATERAL WRIST RESTRAINTS FOR SAFETY HE IS PULLING AND REMOVING HIS TELEMETRY HIS GOWN PULLING ON HIS IV CIRCULATION CHECKED RELEASED AND REAPPLIED.NO S/S OF HYPO/HYPERGLYCEMIC REACTIONS AT THIS TIME TX TO SACRAL LEFT AND RIGHT HEEL ORDERED MADE COMFORTABLE WILL CONTINUE TO OBSERVE.
[2023-05-27] MEDS: SODIUM HYPOCHLORITE 0.125% (QUARTER STRENGTH) 473 ML BOTTLE TP SCH ×2 (08:56→20:58)
[2023-05-27] MEDS: PROTEIN SUPPLEMENT (PROSTAT) 30 ML LIQUID PO SCH ×3 (08:57→16:58)
[2023-05-27 12:00] VITALS: BP_SYST 114; BP_SYST 120; BP_DIAS 66; BP_DIAS 69; TEMP 98.2; O2SAT 95; O2SAT 96
--- NOTE | 2023-05-27 12:00 | NUR ---
PATIENT IS SLEEPING BUT IS EASILY AROUSABLE ON ROUNDS HIS BROTHER TISHA IS HERE HE WAS UPDATED ON HIS CONDITION AND THE FACT THAT MORPHINE WAS GIVEN TO THE PATIENT HE SEEMED TO BE IN PAIN WANTS TO SPEAK TO THE PROVIDER WILL NOTIFY DR SHAIKH
[2023-05-27] MEDS ORDERED: SODIUM HYPOCHLORITE 0.125% (QUARTER STRENGTH) 473 ML BOTTLE TP SCH (12:30)
--- NOTE | 2023-05-27 13:30 | NUR ---
DR NEEL HOBBS HERE SEEN PATIENT WITH NEW ORDERS.
--- NOTE | 2023-05-27 14:28 | NUR ---
SPEECH THERAPIST EVALUATED PATIENT AND ORDERED NPO FOR NOW NEW ORDERS NOTED FOR IVF.
[2023-05-27] MEDS: IV NS 1000 ML 1,000 ML IV PRN (15:13)
[2023-05-27 16:00] VITALS: BP 125/56; TEMP 97.5; O2SAT 96
[2023-05-27] MEDS: RIVAROXABAN 10 MG TABLET PO SCH (16:58)
[2023-05-27] MEDS ORDERED: DEXTROSE 50% 50 ML DISP.SYRIN IV PRN (19:00)
[2023-05-27 20:00] VITALS: BP 102/60; TEMP 100.7; O2SAT 96
[2023-05-27] MEDS: ACETAMINOPHEN 650 MG SUPP.RECT RC PRN (20:37)
[2023-05-27] MEDS: INSULIN GLARGINE,HUM 300 UNITS/3 ML CARTRIDGE SQ SCH (20:59)
--- NOTE | 2023-05-27 21:00 | NUR ---
PT MAINTAINED ON NPO PER ST EVAL. RECEIVED ORDER FROM ANJEL ROMO TO CHANGE FLAGYL PO TO IV AND HOLD METOPROLOL AND LANTUS ONE TIME DOSE. WILL CONTINUE TO MONITOR.
[2023-05-27] MEDS ORDERED: METRONIDAZOLE 500 MG/NS 100ML 100 ML IV ONE (21:10)
[2023-05-27 22:00] VITALS: TEMP 98.8
[2023-05-27] MEDS: METRONIDAZOLE 500 MG/NS 100ML 500 MG in PREMIXED 1 EACH IV SCH (22:00)
--- NOTE | 2023-05-27 22:10 | NUR ---
PT'S TEMP WAS 100.7 F. TYLENOL SUPPOSITORY GIVEN ORDERED. COOLING MEASURES PROVIDED. RECHECKED TEMP, 98.8 F. WILL CONTINUE TO MONITOR.
[2023-05-28] VITALS (8 sets, daily range): BP systolic 103–153; BP diastolic 31–66; TEMP 97.5–100; O2SAT 95–99
[2023-05-28] MEDS: MORPHINE SULFATE 4 MG/1 ML DISP.SYRIN IV PRN (00:32)
[2023-05-28] MEDS: IV NS 1000 ML 1,000 ML IV PRN (04:13)
--- NOTE | 2023-05-28 04:44 | NUR ---
PT CONFUSED. PULLING OUT LINES AND KOSHER DIETARY SERVICE MANAGER. KEPT BILATERAL WRIST RESTRAINTS. REPOSITIONED Q2H. MONITORED SKIN AND CIRCULATION. WOUND CARE ON SACRUM AND LEFT HEEL DONE ORDERED. PT RESTLESS AND UNCOMFORTABLE. ADMINISTERED MORPHINE ORDERED. PT WAS ABLE TO SLEEP. KEPT PT CLEAN AND DRY.
[2023-05-28] MEDS: METRONIDAZOLE 500 MG/NS 100ML 500 MG in PREMIXED 1 EACH IV SCH ×3 (05:23→21:21)
[2023-05-28] MEDS: BLOOD SUGAR DIAGNOSTIC 1 EACH STRIP VI SCH ×3 (06:15→18:27)
[2023-05-28] MEDS: PANTOPRAZOLE SODIUM 40 MG TABLET.DR PO SCH (06:16)
--- NOTE | 2023-05-28 07:05 | NUR ---
PT CONVERTED FROM SINUS TACHY TO SVT FOR 13 MINUTES THEN CONVERTED BACK. STAT EKG DONE. DR. REICH AWARE.
[2023-05-28 07:06] LABS: *PEU ALBUMIN, UR 27.8 % (.); *PEU ALPHA-2-GLOBULIN, UR 15.8 % (.); *PEU GAMMA GLOBULIN, UR 23.7 % (.); *PEU PROTEIN, TOTAL, UR 28.8 mg/dL (Not Estab.); *PEUALPHA-1-GLOBULIN, UR 3.8 % (.); *PEUBETA GLOBULIN, UR 28.9 % (.)
[2023-05-28 07:06] LABS: HEMATOCRIT 23.9 % (36.7-47.1); PLATELET COUNT (AUTO) 348 K/uL (152-348)
[2023-05-28 07:22] LABS: MAGNESIUM 1.6 mg/dL (1.8-2.4); PHOSPHOROUS 4.1 mg/dL (2.5-4.9); POTASSIUM 3.4 mmol/L (3.5-5.1)
[2023-05-28] MEDS: PROTEIN SUPPLEMENT (PROSTAT) 30 ML LIQUID PO SCH ×3 (08:00→17:00)
[2023-05-28] MEDS: POTASSIUM CHLORIDE 50 ML IV SCH ×2 (08:00→09:00)
[2023-05-28] MEDS: SODIUM HYPOCHLORITE 0.125% (QUARTER STRENGTH) 473 ML BOTTLE TP SCH ×2 (09:00→21:03)
[2023-05-28] MEDS: METOPROLOL TARTRATE 50 MG TABLET PO SCH ×2 (09:48→21:20)
[2023-05-28] MEDS: ZINC SULFATE 220 MG CAPSULE PO SCH (09:48)
[2023-05-28] MEDS: ASCORBIC ACID 500 MG TABLET PO SCH (09:48)
[2023-05-28] MEDS: MAGNESIUM SULFATE/D5W 100 ML IV SCH ×2 (10:00→11:00)
[2023-05-28] MEDS: GLUCERNA SHAKE 237 ML CAN PO SCH (17:00)
[2023-05-28] MEDS: RIVAROXABAN 10 MG TABLET PO SCH (18:15)
[2023-05-28] MEDS: INSULIN REGULAR, HUMAN 300 UNIT/3 ML VIAL SQ PRN (18:25)
[2023-05-28] MEDS ORDERED: AMIODARONE HCL IV 150 MG in IV DEXTROSE 5% 100 ML IV ONE (19:15)
--- NOTE | 2023-05-28 19:25 | NUR ---
Received the patient from the off going nurse, Alert and confused. Received the patient on telemetry with NSR. Patient observed with bilateral wrist restraints in place, skin intact. Patient observed with Rondon catheter in place affixed to (LT) thigh, unkinked, below th bladder and off the floor. Patient observed with bilateral upper arm midlines in place, site WNL and occlusive dressing in place. Patient restraints released and applied as per protocol. Wound care to sacrum performed as per order and mepilex in place, bilateral heel mepliex in place. Patient is on a pressure support mattress and Q2H T&R schedule in place. Patient has Multiple IVABT administered as per protocol. Patient seen by the ST and NPO discontinued with [place] thickened liquid and Puree food consistency in place. Patient has episodes of a-fib, Machine Ceramic Coater aware, Lopressor IV PRN given without (+) result, Machine Ceramic Coater upgraded patient to KERI and Amio gtt to be started . Lisa called snd informed of the patient's multiple episodes of LBM, order for flexiseal and C-diff stool sample to be collected and sent. Patient is stable on the bed with the oncoming nurse at the bedside.
--- NOTE | 2023-05-28 19:45 | NUR ---
AMIODARONE DRIP STARTED AND FOLLOW AMIODARONE DRIP PROTOCOL . BP 106/69 , HR 180,RR 20.
[2023-05-28] MEDS: AMIODARONE HCL IV 450 MG in IV DEXTROSE 5% 250 ML IV PRN (20:04)
[2023-05-28] MEDS: INSULIN GLARGINE,HUM 300 UNITS/3 ML CARTRIDGE SQ SCH (21:00)
--- NOTE | 2023-05-28 21:00 | NUR ---
FINGERSTICKS DONE 291 BS GIVEN LANTUS INSULIN.
--- NOTE | 2023-05-28 21:30 | NUR ---
REPORT GIVEN TO FRANCISCO BARTON ,MOVED PATIENT TO CCU ROOM 4 FOR OVERFLOW KERI -TD. PATIENT WENT WITH CHART , MEDICATIONS AND BELONGINGS .
--- NOTE | 2023-05-28 22:00 | NUR ---
Rec'd pt to CCU #4; con't KERI status. Inserted rectal Flexiseal & sent stool / C-diff.
[2023-05-29] VITALS (25 sets, daily range): BP systolic 97–140; BP diastolic 19–93; TEMP 97.9–98.6; O2SAT 97–100
[2023-05-29] MEDS: BLOOD SUGAR DIAGNOSTIC 1 EACH STRIP VI SCH ×4 (00:36→18:46)
[2023-05-29] MEDS: INSULIN REGULAR, HUMAN 300 UNIT/3 ML VIAL SQ PRN ×4 (00:38→18:44)
[2023-05-29] MEDS: MORPHINE SULFATE 4 MG/1 ML DISP.SYRIN IV PRN (00:48)
[2023-05-29] MEDS: AMIODARONE HCL IV 450 MG in IV DEXTROSE 5% 250 ML IV PRN (02:36)
[2023-05-29] MEDS: IV NS 1000 ML 1,000 ML IV PRN (03:05)
[2023-05-29 04:56] LABS: HEMATOCRIT 24.8 % (36.7-47.1); MEAN CORPUSCULAR HEMOGLOBIN 28.3 uug (23.8-33.4); MEAN CORPUSCULAR VOLUME 88.4 fL (73.0-96.2); PLATELET COUNT (AUTO) 371 K/uL (152-348)
[2023-05-29] MEDS: METRONIDAZOLE 500 MG/NS 100ML 500 MG in PREMIXED 1 EACH IV SCH ×3 (05:54→21:19)
[2023-05-29] MEDS: PANTOPRAZOLE SODIUM 40 MG TABLET.DR PO SCH (05:59)
[2023-05-29 06:07] LABS: CREATININE 0.9 mg/dL (0.6-1.3); MAGNESIUM 1.7 mg/dL (1.8-2.4); PHOSPHOROUS 2.7 mg/dL (2.5-4.9)
[2023-05-29 06:09] LABS: POTASSIUM 2.3 mmol/L (3.5-5.1)
[2023-05-29] MEDS ORDERED: POTASSIUM CHLORIDE 20 MEQ POWDER PACKET PO ONE (07:30)
[2023-05-29] MEDS: PROTEIN SUPPLEMENT (PROSTAT) 30 ML LIQUID PO SCH ×3 (08:00→17:04)
[2023-05-29] MEDS: POTASSIUM CHLORIDE 50 ML IV SCH ×8 (08:43→17:00)
[2023-05-29] MEDS: MORPHINE SULFATE 2 MG/1 ML DISP.SYRIN IV PRN ×2 (09:11→14:41)
[2023-05-29] MEDS: ASCORBIC ACID 500 MG TABLET PO SCH (09:12)
[2023-05-29] MEDS: ZINC SULFATE 220 MG CAPSULE PO SCH (09:16)
[2023-05-29] MEDS: METOPROLOL TARTRATE 50 MG TABLET PO SCH ×2 (09:16→21:00)
[2023-05-29] MEDS: GLUCERNA SHAKE 237 ML CAN PO SCH ×3 (09:17→17:04)
[2023-05-29] MEDS: SODIUM HYPOCHLORITE 0.125% (QUARTER STRENGTH) 473 ML BOTTLE TP SCH ×2 (10:01→21:20)
[2023-05-29] MEDS ORDERED: POTASSIUM CHLORIDE 50 ML IV SCH (12:15)
[2023-05-29] MEDS ORDERED: POTASSIUM CHLORIDE 20 MEQ POWDER PACKET GT ONE (12:15)
[2023-05-29] MEDS: MAGNESIUM SULFATE/D5W 100 ML IV SCH ×4 (12:16→17:03)
[2023-05-29] MEDS: LORAZEPAM 2 MG/1 ML VIAL IV PRN ×3 (12:27→22:43)
[2023-05-29] MEDS: VANCOMYCIN FOR PO/GT/NG USE PO SCH ×2 (13:13→18:47)
[2023-05-29] MEDS: RIVAROXABAN 10 MG TABLET PO SCH (18:35)
--- NOTE | 2023-05-29 19:37 | NUR ---
Received the patient from the off going nurse, Alert and Oriented X 3 . Received the patient on the bedside monitor with NSR on an Amiodarone gtt. Patient observed with bilateral wrist restraints in place, skin intact. Patient observed with Rondon catheter in place affixed to (LT) thigh, unkinked, below th bladder and off the floor. Patient observed with bilateral upper arm midlines in place, site WNL and occlusive dressing in place. Patient restraints released and applied as per protocol. Wound care to sacrum performed as per order and mepilex in place, bilateral heel mepliex in place. Patient is on a pressure support mattress and Q2H T&R schedule in place. Patient has Multiple IVABT administered as per protocol. Patient continues with [employer] thickened liquid and Puree food consistency in place. Patient seen by the Metal Flow Coordinator on am rounds, no new orders in place. Patient seen by Neuro provider, no new orders. Patient (+) C-diff, Lisa called and informed, Contact precaution in place. Patient seen by Lisa and new orders for PO ABT in place. Flexiseal reinserted/flushed as per protocol. Amiodarone gtt completed as per protocol. Patient is stable on the bed with the oncoming nurse at the bedside.
--- NOTE | 2023-05-29 20:34 | NUR ---
awake, alert,oriented to his name. asking for water continously. thicken water given able to swallow with no problem noted.skin warm/dry.respiration with out any problem, on RA.o2 sat-99% 2030-sleeping.off restraints. ml torua intact ns 75 ml/hr cont.rectal tube in place with watery yellow stool in small amount. isolation for e-coli.f/c drainning yellow urine in small amount.scope- SR cont. to monitor pt.
[2023-05-29] MEDS ORDERED: INSULIN GLARGINE,HUM 300 UNITS/3 ML CARTRIDGE SQ ONE (21:37)
[2023-05-29] MEDS: INSULIN GLARGINE,HUM 300 UNITS/3 ML CARTRIDGE SQ SCH (22:43)
[2023-05-30] VITALS (16 sets, daily range): BP systolic 107–150; BP diastolic 33–73; TEMP 97.4–98.4; O2SAT 95–100
[2023-05-30] MEDS: VANCOMYCIN FOR PO/GT/NG USE PO SCH ×5 (00:05→23:02)
[2023-05-30] MEDS: BLOOD SUGAR DIAGNOSTIC 1 EACH STRIP VI SCH ×5 (00:06→21:47)
[2023-05-30] MEDS: INSULIN REGULAR, HUMAN 300 UNIT/3 ML VIAL SQ PRN ×2 (00:18→17:42)
[2023-05-30] MEDS: MORPHINE SULFATE 2 MG/1 ML DISP.SYRIN IV PRN ×3 (00:25→09:39)
[2023-05-30] MEDS: METRONIDAZOLE 500 MG/NS 100ML 500 MG in PREMIXED 1 EACH IV SCH ×3 (05:07→22:10)
[2023-05-30] MEDS: IV NS 1000 ML 1,000 ML IV PRN ×2 (05:48→21:47)
--- NOTE | 2023-05-30 06:00 | NUR ---
medicated for pain with morphine 2 mg iv. and pt able to sleep.am care done cont. with ns 75 ml/hr site -ok on the naomi ml.scope-SR. pt.restraints in place to both wrist.sites ok. cont to monitor pt. endorse to am RN
[2023-05-30] MEDS: PANTOPRAZOLE SODIUM 40 MG TABLET.DR PO SCH (06:06)
[2023-05-30 06:36] LABS: HEMATOCRIT 24.4 % (36.7-47.1); MEAN CORPUSCULAR HEMOGLOBIN 28.9 uug (23.8-33.4); MEAN CORPUSCULAR VOLUME 88.9 fL (73.0-96.2); PLATELET COUNT (AUTO) 328 K/uL (152-348)
[2023-05-30 06:56] LABS: CREATININE 0.8 mg/dL (0.6-1.3); MAGNESIUM 1.9 mg/dL (1.8-2.4); PHOSPHOROUS 2.5 mg/dL (2.5-4.9)
[2023-05-30 07:11] LABS: POTASSIUM 2.8 mmol/L (3.5-5.1)
--- NOTE | 2023-05-30 08:00 | NUR ---
pt received in ICU #4. confused and cries out. BWR on and pt monitored. K-2.3 and orders for potassium chloride recievedd.
[2023-05-30] MEDS ORDERED: POTASSIUM CHLORIDE 20 MEQ POWDER PACKET PO ONE (08:15)
[2023-05-30] MEDS: POTASSIUM CHLORIDE 50 ML IV SCH ×6 (09:04→13:33)
[2023-05-30] MEDS: ASCORBIC ACID 500 MG TABLET PO SCH (09:27)
[2023-05-30] MEDS: ZINC SULFATE 220 MG CAPSULE PO SCH (09:27)
[2023-05-30] MEDS: METOPROLOL TARTRATE 50 MG TABLET PO SCH ×2 (09:28→21:29)
[2023-05-30] MEDS: PROTEIN SUPPLEMENT (PROSTAT) 30 ML LIQUID PO SCH ×3 (09:30→17:31)
[2023-05-30] MEDS: GLUCERNA SHAKE 237 ML CAN PO SCH ×3 (09:33→17:34)
[2023-05-30] MEDS: SODIUM HYPOCHLORITE 0.125% (QUARTER STRENGTH) 473 ML BOTTLE TP SCH ×2 (09:35→21:31)
[2023-05-30] MEDS: LORAZEPAM 2 MG/1 ML VIAL IV PRN ×2 (10:21→10:24)
--- NOTE | 2023-05-30 13:00 | NUR ---
wound care given for stg 4 sacral wound. vss, afebrile. pt continues to cry out constantly. bwr on
[2023-05-30] MEDS: GABAPENTIN 100 MG CAPSULE PO SCH ×2 (13:35→17:35)
[2023-05-30] MEDS: RIVAROXABAN 10 MG TABLET PO SCH (17:33)
--- NOTE | 2023-05-30 18:15 | NUR ---
report given to dustin Orozco pt to be transferred
--- NOTE | 2023-05-30 18:30 | NUR ---
pt transferred to room 330. no changes.
[2023-05-30] MEDS: INSULIN GLARGINE,HUM 300 UNITS/3 ML CARTRIDGE SQ SCH (21:28)
[2023-05-30] MEDS: QUETIAPINE FUMARATE 25 MG TABLET PO SCH (21:29)
[2023-05-30] MEDS ORDERED: DEXTROSE 50% 50 ML DISP.SYRIN IV PRN (21:30)
[2023-05-30] MEDS: REMEDY ESSENTIAL ZINC PASTE 113 GM TOP PRN (22:11)
[2023-05-31 04:00] VITALS: BP 115/63; TEMP 98.3; O2SAT 97
[2023-05-31] MEDS: MORPHINE SULFATE 2 MG/1 ML DISP.SYRIN IV PRN (05:30)
[2023-05-31] MEDS: METRONIDAZOLE 500 MG/NS 100ML 500 MG in PREMIXED 1 EACH IV SCH ×3 (05:30→21:21)
[2023-05-31] MEDS: VANCOMYCIN FOR PO/GT/NG USE PO SCH ×3 (05:31→17:17)
[2023-05-31] MEDS: PANTOPRAZOLE SODIUM 40 MG TABLET.DR PO SCH (06:24)
--- NOTE | 2023-05-31 06:24 | NUR ---
END OF SHIFT REPORT Patient is a transfer from CCU; pt repositioned q2h; needs attended; pt screaming most of the time; redirection and reassurance given; remains removing lines when off given; dressing changed to sacral wound as prescribed; AM care done; continue to monitor; continue plan of care
[2023-05-31] MEDS: BLOOD SUGAR DIAGNOSTIC 1 EACH STRIP VI SCH ×4 (06:41→20:43)
[2023-05-31 06:50] LABS: MEAN CORPUSCULAR VOLUME 88.5 fL (73.0-96.2); PLATELET COUNT (AUTO) 294 K/uL (152-348)
[2023-05-31 06:57] LABS: CARBON DIOXIDE 22 mmol/L (21-32); CHLORIDE 110 mmol/L (98-107); CREATININE 0.6 mg/dL (0.6-1.3); MAGNESIUM 1.6 mg/dL (1.8-2.4); PHOSPHOROUS 2.4 mg/dL (2.5-4.9); UREA NITROGEN, BLOOD 13 mg/dL (7-18)
[2023-05-31 07:13] LABS: POTASSIUM 2.8 mmol/L (3.5-5.1)
[2023-05-31] MEDS: ZINC SULFATE 220 MG CAPSULE PO SCH (08:35)
[2023-05-31] MEDS: POTASSIUM CHLORIDE 50 ML IV SCH ×7 (08:35→17:23)
[2023-05-31] MEDS: GABAPENTIN 100 MG CAPSULE PO SCH ×3 (08:50→17:17)
[2023-05-31] MEDS: ASCORBIC ACID 500 MG TABLET PO SCH (08:50)
[2023-05-31] MEDS: METOPROLOL TARTRATE 50 MG TABLET PO SCH ×2 (08:52→20:51)
[2023-05-31] MEDS: GLUCERNA SHAKE 237 ML CAN PO SCH ×3 (08:54→17:20)
[2023-05-31] MEDS: PROTEIN SUPPLEMENT (PROSTAT) 30 ML LIQUID PO SCH ×3 (08:54→17:18)
[2023-05-31] MEDS ORDERED: MAGNESIUM OXIDE 400 MG TABLET PO ONE (09:30)
--- NOTE | 2023-05-31 09:30 | NUR ---
Rcvd pt in bed with vel soft restraint. Released and Checked the circlulation q2 hrs. No sob noted. Left mid-line patent and intact. Kept pt clean and comfortable. Potassium 2.9, relayed to MD. Potassium replacements via IV ordered. Lisa Edwards ordered 30meg. Pt is occasionally screaming.
[2023-05-31] MEDS ORDERED: POTASSIUM CHLORIDE 20 MEQ POWDER PACKET GT ONE (11:00)
[2023-05-31 11:22] VITALS: BP 128/56; TEMP 97.8; O2SAT 97
[2023-05-31] MEDS: MAGNESIUM SULFATE/D5W 100 ML IV SCH ×4 (11:38→13:37)
[2023-05-31] MEDS: SODIUM HYPOCHLORITE 0.125% (QUARTER STRENGTH) 473 ML BOTTLE TP SCH ×2 (11:44→20:35)
[2023-05-31] MEDS: INSULIN REGULAR, HUMAN 300 UNIT/3 ML VIAL SQ PRN ×3 (12:40→20:47)
[2023-05-31 15:22] VITALS: BP 130/67; TEMP 97.8; O2SAT 97
[2023-05-31] MEDS ORDERED: NEUTRA PHOS PACKET PO ONE (16:00)
[2023-05-31] MEDS: RIVAROXABAN 10 MG TABLET PO SCH (17:19)
--- NOTE | 2023-05-31 17:57 | NUR ---
Tele normal sinus with heart rate of 81. Keep pt. in comfortable position, clean and dry. Released soft bilateral restraint to check circulation. Pt keep on removing gown. C-diff isolation protocol observed. Brother on the bed side. Still monitoring for some abnormal labs.
--- NOTE | 2023-05-31 20:00 | NUR ---
Pt's rectal tube out; alfa care done; new RECTAL TUBE re-inserted
[2023-05-31] MEDS: INSULIN GLARGINE,HUM 300 UNITS/3 ML CARTRIDGE SQ SCH (20:44)
[2023-05-31] MEDS: QUETIAPINE FUMARATE 25 MG TABLET PO SCH (20:48)
[2023-05-31 20:55] VITALS: BP 106/38; TEMP 98.5; O2SAT 96
[2023-06-01] MEDS: VANCOMYCIN FOR PO/GT/NG USE PO SCH ×4 (00:06→18:24)
[2023-06-01] MEDS: MORPHINE SULFATE 2 MG/1 ML DISP.SYRIN IV PRN ×2 (03:58→22:21)
[2023-06-01] MEDS: IV NS 1000 ML 1,000 ML IV PRN (03:58)
[2023-06-01 04:05] VITALS: BP 130/65; TEMP 98.4; O2SAT 99
[2023-06-01 05:19] LABS: *BILIRUBIN,URIN NEGATIVE (NEGATIVE); *BLOOD, URINE NEGATIVE (NEGATIVE); *COLOR,URINE YELLOW (YELLOW); *KETONES,URINE NEGATIVE (NEGATIVE); *UROBILINOGEN,URINE 0.2 E.U./dl (NORMAL); LEUKOCYTE ESTERASE ,URINE 1+ (NEGATIVE); NITRITE, URINE NEGATIVE (NEGATIVE); UGLUCOSE NEGATIVE (NEGATIVE)
[2023-06-01 05:30] LABS: *CLARITY,URINE HAZY (CLEAR)
[2023-06-01 05:37] LABS: RBC,URINE 0-3 /HPF (0-3)
[2023-06-01 05:38] LABS: BACTERIA,URINE FEW /HPF (NONE SEEN); SQUAMOUS EPITHELIAL CELL,UR NONE SEEN /HPF (NONE SEEN)
[2023-06-01] MEDS: METRONIDAZOLE 500 MG/NS 100ML 500 MG in PREMIXED 1 EACH IV SCH ×3 (05:53→21:46)
[2023-06-01] MEDS: PANTOPRAZOLE SODIUM 40 MG TABLET.DR PO SCH (06:33)
[2023-06-01] MEDS: BLOOD SUGAR DIAGNOSTIC 1 EACH STRIP VI SCH ×4 (06:34→21:33)
[2023-06-01 06:55] LABS: MEAN CORPUSCULAR HEMOGLOBIN 28.8 uug (23.8-33.4); MEAN CORPUSCULAR VOLUME 89.1 fL (73.0-96.2); PLATELET COUNT (AUTO) 310 K/uL (152-348)
[2023-06-01 07:12] LABS: CREATININE 0.8 mg/dL (0.6-1.3); MAGNESIUM 1.8 mg/dL (1.8-2.4); PHOSPHOROUS 3.1 mg/dL (2.5-4.9)
[2023-06-01 08:00] VITALS: BP 121/77; TEMP 98.2; O2SAT 98
[2023-06-01] MEDS: GLUCERNA SHAKE 237 ML CAN PO SCH ×3 (08:57→17:00)
[2023-06-01] MEDS: PROTEIN SUPPLEMENT (PROSTAT) 30 ML LIQUID PO SCH ×3 (08:57→17:00)
[2023-06-01] MEDS: ASCORBIC ACID 500 MG TABLET PO SCH (09:09)
[2023-06-01] MEDS: METOPROLOL TARTRATE 50 MG TABLET PO SCH ×2 (09:09→21:18)
[2023-06-01] MEDS: GABAPENTIN 100 MG CAPSULE PO SCH ×3 (09:09→18:56)
[2023-06-01] MEDS: ZINC SULFATE 220 MG CAPSULE PO SCH (09:09)
[2023-06-01] MEDS: SODIUM HYPOCHLORITE 0.125% (QUARTER STRENGTH) 473 ML BOTTLE TP SCH ×2 (09:09→21:19)
[2023-06-01] MEDS ORDERED: LORAZEPAM 2 MG/1 ML VIAL IV ONE (10:55)
--- NOTE | 2023-06-01 10:55 | NUR ---
Phoned Dr. Bull and notified patient states that he is claustrophobic, and needs medication to help him relax for MRI Pelvis without Contrast. Order received for Lorazepam 1mg. IV x1. Patient going to [facility] via gurney and ambulance transport; and his sister Jesi Reynolds gave telephone consent and witnessed by Alexandre Charge Nurse.
[2023-06-01 16:18] VITALS: BP 121/65; TEMP 97.8; O2SAT 99
[2023-06-01] MEDS: RIVAROXABAN 10 MG TABLET PO SCH (19:03)
[2023-06-01 20:00] VITALS: BP 110/57; TEMP 97.9; O2SAT 100
--- NOTE | 2023-06-01 20:00 | NUR ---
Received Patient in bed with bilateral wrists restraints. Rectal tube pulled out by patient, reinserted rectal tube and comforted patient. New Iv reinserted, 22g Right AC. Will continue to monitor and continue plan of care.
[2023-06-01] MEDS: QUETIAPINE FUMARATE 25 MG TABLET PO SCH (21:18)
[2023-06-01] MEDS: INSULIN GLARGINE,HUM 300 UNITS/3 ML CARTRIDGE SQ SCH (21:36)
[2023-06-01] MEDS: INSULIN REGULAR, HUMAN 300 UNIT/3 ML VIAL SQ PRN (21:37)
[2023-06-02] MEDS: VANCOMYCIN FOR PO/GT/NG USE PO SCH ×4 (00:12→17:54)
[2023-06-02 04:00] VITALS: BP 114/66; TEMP 98.6; O2SAT 100
[2023-06-02] MEDS: METRONIDAZOLE 500 MG/NS 100ML 500 MG in PREMIXED 1 EACH IV SCH ×3 (05:18→21:23)
[2023-06-02] MEDS: IV NS 1000 ML 1,000 ML IV PRN ×2 (05:24→20:24)
[2023-06-02] MEDS: PANTOPRAZOLE SODIUM 40 MG TABLET.DR PO SCH (06:21)
[2023-06-02] MEDS: BLOOD SUGAR DIAGNOSTIC 1 EACH STRIP VI SCH ×4 (06:30→21:13)
[2023-06-02 06:42] LABS: CREATININE 0.8 mg/dL (0.6-1.3); POTASSIUM 3.8 mmol/L (3.5-5.1)
--- NOTE | 2023-06-02 06:56 | NUR ---
Hourly rounding done and reevaluated patients bilateral wrist restraints. IV patent and intact. Patient AAx2-3, often confused and forgetful. All needs attended to and met. Safety measures in place, Continue plan of care and continue to monitor.
[2023-06-02 08:00] VITALS: BP 140/68; TEMP 98.3; O2SAT 99
[2023-06-02] MEDS: METOPROLOL TARTRATE 50 MG TABLET PO SCH ×2 (09:29→21:24)
[2023-06-02] MEDS: GABAPENTIN 100 MG CAPSULE PO SCH ×3 (09:29→17:54)
[2023-06-02] MEDS: ZINC SULFATE 220 MG CAPSULE PO SCH (09:30)
[2023-06-02] MEDS: SODIUM HYPOCHLORITE 0.125% (QUARTER STRENGTH) 473 ML BOTTLE TP SCH ×2 (09:30→21:00)
[2023-06-02] MEDS: ASCORBIC ACID 500 MG TABLET PO SCH (09:30)
[2023-06-02] MEDS: PROTEIN SUPPLEMENT (PROSTAT) 30 ML LIQUID PO SCH ×3 (09:31→17:56)
[2023-06-02] MEDS: GLUCERNA SHAKE 237 ML CAN PO SCH ×3 (09:31→17:56)
[2023-06-02 11:38] VITALS: BP 109/56; TEMP 97.7; O2SAT 100
[2023-06-02] MEDS: INSULIN REGULAR, HUMAN 300 UNIT/3 ML VIAL SQ PRN ×2 (12:21→16:53)
[2023-06-02 16:38] VITALS: BP 114/64; TEMP 98.5; O2SAT 100
[2023-06-02] MEDS: RIVAROXABAN 10 MG TABLET PO SCH (17:55)
--- NOTE | 2023-06-02 18:00 | NUR ---
Received patient lying in bed awake,alert and oriented. No signs of acute distress, no SOB. Restraint on both arms, safety measures provided. IVF NS @ 75ml/hr infusing well at right AC g.22 infusing well. Patient with rodriguez catheter connected to urine bag. Rectal tube was out of place and removed. Vital signs taken and recorded. Due medications given and tolerated. Wound care done, morning care done with PANTOGRAPH OPERATOR. Repositioned patient every 2 hours, answered call lights. Provided comfort and safety measures. Observed accordingly, attended.
[2023-06-02 20:00] VITALS: BP 119/65; TEMP 98.5; O2SAT 100
[2023-06-02] MEDS: QUETIAPINE FUMARATE 25 MG TABLET PO SCH (21:24)
[2023-06-02] MEDS: INSULIN GLARGINE,HUM 300 UNITS/3 ML CARTRIDGE SQ SCH (21:27)
[2023-06-03] MEDS: VANCOMYCIN FOR PO/GT/NG USE PO SCH ×5 (00:02→23:47)
[2023-06-03 04:00] VITALS: BP 113/62; TEMP 98.8; O2SAT 99
[2023-06-03] MEDS: METRONIDAZOLE 500 MG/NS 100ML 500 MG in PREMIXED 1 EACH IV SCH ×3 (06:33→21:40)
[2023-06-03] MEDS: PANTOPRAZOLE SODIUM 40 MG TABLET.DR PO SCH (06:33)
[2023-06-03] MEDS: BLOOD SUGAR DIAGNOSTIC 1 EACH STRIP VI SCH ×4 (06:33→20:29)
--- NOTE | 2023-06-03 07:30 | NUR ---
REPORT GIVEN TO MICK NICHOLSON
[2023-06-03 07:37] LABS: HEMATOCRIT 26.9 % (36.7-47.1); MEAN CORPUSCULAR HEMOGLOBIN 28.8 uug (23.8-33.4); MEAN CORPUSCULAR VOLUME 89.1 fL (73.0-96.2); PLATELET COUNT (AUTO) 315 K/uL (152-348)
[2023-06-03 07:50] LABS: CREATININE 0.8 mg/dL (0.6-1.3); POTASSIUM 3.8 mmol/L (3.5-5.1)
[2023-06-03 08:00] VITALS: BP 119/80; TEMP 98.1; O2SAT 99
[2023-06-03] MEDS: ZINC SULFATE 220 MG CAPSULE PO SCH (08:17)
[2023-06-03] MEDS: METOPROLOL TARTRATE 50 MG TABLET PO SCH ×2 (08:17→20:27)
[2023-06-03] MEDS: GABAPENTIN 100 MG CAPSULE PO SCH ×3 (08:17→17:17)
[2023-06-03] MEDS: ASCORBIC ACID 500 MG TABLET PO SCH (08:17)
[2023-06-03] MEDS: SODIUM HYPOCHLORITE 0.125% (QUARTER STRENGTH) 473 ML BOTTLE TP SCH ×2 (08:18→20:30)
[2023-06-03] MEDS: GLUCERNA SHAKE 237 ML CAN PO SCH ×3 (08:18→17:17)
[2023-06-03] MEDS: PROTEIN SUPPLEMENT (PROSTAT) 30 ML LIQUID PO SCH ×3 (08:18→17:17)
--- NOTE | 2023-06-03 09:00 | NUR ---
Received patient lying in bed awake,alert and oriented. No signs of acute distress, no SOB. IVF NS @ 75ml/hr infusing well at right AC g.22 infusing well. Patient with rodriguez catheter connected to urine bag. Vital signs taken and recorded. Due medications given and tolerated. Repositioned patient every 2 hours, answered call lights. Provided comfort and safety measures. Observed accordingly, attended.
[2023-06-03 11:36] VITALS: BP 106/53; TEMP 98.6; O2SAT 98
[2023-06-03] MEDS: INSULIN REGULAR, HUMAN 300 UNIT/3 ML VIAL SQ PRN ×3 (12:16→20:28)
[2023-06-03] MEDS: IV NS 1000 ML 1,000 ML IV PRN (12:22)
--- NOTE | 2023-06-03 14:10 | NUR ---
Wound care and dressing done. Keep wound clean and dressing intact. Due medication given. Seen by Gretchen Nuñez, continue monitoring. Attended
[2023-06-03 16:24] VITALS: BP 126/59; TEMP 97.6; O2SAT 99
[2023-06-03] MEDS: RIVAROXABAN 10 MG TABLET PO SCH (17:54)
[2023-06-03 20:00] VITALS: BP 116/55; TEMP 98.7; O2SAT 100
[2023-06-03] MEDS: QUETIAPINE FUMARATE 25 MG TABLET PO SCH (20:29)
[2023-06-03] MEDS: INSULIN GLARGINE,HUM 300 UNITS/3 ML CARTRIDGE SQ SCH (20:30)
[2023-06-04 04:00] VITALS: BP 112/63; TEMP 98.6; O2SAT 98
[2023-06-04] MEDS: VANCOMYCIN FOR PO/GT/NG USE PO SCH ×2 (05:08→12:15)
[2023-06-04] MEDS: METRONIDAZOLE 500 MG/NS 100ML 500 MG in PREMIXED 1 EACH IV SCH ×2 (05:09→13:00)
--- NOTE | 2023-06-04 05:10 | NUR ---
Patient rested well in between care; no acute distress; repositioned q2h; hourly rounding done; dressing change to sacral wound; needs attended; incontinence care done;
[2023-06-04] MEDS: PANTOPRAZOLE SODIUM 40 MG TABLET.DR PO SCH (06:13)
[2023-06-04] MEDS: BLOOD SUGAR DIAGNOSTIC 1 EACH STRIP VI SCH ×2 (06:14→12:15)
[2023-06-04 06:58] LABS: HEMATOCRIT 25.7 % (36.7-47.1); MEAN CORPUSCULAR VOLUME 89.5 fL (73.0-96.2); PLATELET COUNT (AUTO) 306 K/uL (152-348)
[2023-06-04 07:21] LABS: CREATININE 0.8 mg/dL (0.6-1.3); POTASSIUM 3.8 mmol/L (3.5-5.1)
--- NOTE | 2023-06-04 08:00 | NUR ---
Awake, alert oriented x 3. On moderate high back rest, not in distress. Denies pain.
[2023-06-04] MEDS: ASCORBIC ACID 500 MG TABLET PO SCH (09:17)
[2023-06-04] MEDS: PROTEIN SUPPLEMENT (PROSTAT) 30 ML LIQUID PO SCH ×2 (09:17→12:15)
[2023-06-04] MEDS: GABAPENTIN 100 MG CAPSULE PO SCH ×2 (09:17→12:16)
[2023-06-04] MEDS: ZINC SULFATE 220 MG CAPSULE PO SCH (09:17)
[2023-06-04] MEDS: METOPROLOL TARTRATE 50 MG TABLET PO SCH (09:18)
[2023-06-04] MEDS: GLUCERNA SHAKE 237 ML CAN PO SCH ×2 (09:18→12:18)
[2023-06-04] MEDS: MORPHINE SULFATE 2 MG/1 ML DISP.SYRIN IV PRN (09:19)
[2023-06-04] MEDS: SODIUM HYPOCHLORITE 0.125% (QUARTER STRENGTH) 473 ML BOTTLE TP SCH (09:21)
[2023-06-04 11:03] VITALS: BP 113/52; TEMP 98.6; O2SAT 100
[2023-06-04] MEDS: INSULIN REGULAR, HUMAN 300 UNIT/3 ML VIAL SQ PRN (12:17)
[2023-06-04] MEDS ORDERED: METR500T PO (12:46)
[2023-06-04] MEDS ORDERED: Blood Sugar Diagnostic VI (12:46)
[2023-06-04] MEDS ORDERED: QUET25TA36 PO (12:46)
[2023-06-04] MEDS ORDERED: SODI473S8 TP (12:46)
[2023-06-04] MEDS ORDERED: ASCO500T21 PO (12:46)
[2023-06-04] MEDS ORDERED: ZINC1CAP3 PO (12:46)
[2023-06-04] MEDS ORDERED: GABA-532 PO (12:46)
[2023-06-04] MEDS ORDERED: RIVA10TA PO (12:46)
[2023-06-04] MEDS ORDERED: Insulin Glargine,Hum SQ (12:46)
[2023-06-04] MEDS ORDERED: METO50TA16 PO (12:46)
[2023-06-04] MEDS ORDERED: PANT40TA49 PO (12:46)
--- NOTE | 2023-06-04 14:45 | NUR ---
With discharge order to SNF, arranged at [facility], report given to Glory. Saline lock removed. Discharged per gurney/ambulance in fair condition, not in distress, afebrile.
== END 2023-06-04 14:45 | DRG 853 ==
LOC: ER 14:34 → CCU 22:15 → TELE3 05-25 19:31 → TELE-TD3 05-28 19:19 → CCU 05-28 21:35 → TELE3 05-30 18:31 → MEDSURG3 06-01 09:20
PROVIDERS: ADMIT Internal Medicine; ATTEND Nurse Practitioner Acute Care
PROC: 05H633Z Insertion of Infusion Device into Left Subclavian Vein, Percutaneous Approach (ICD-10-PCS; 2023-05-21)
PROC: B547ZZA Ultrasonography of Left Subclavian Vein, Guidance (ICD-10-PCS; 2023-05-21)
PROC: 0QB10ZZ Excision of Sacrum, Open Approach (ICD-10-PCS; principal; 2023-05-26)
DX: A41.9 Sepsis, unspecified organism (principal); G92.8 Other toxic encephalopathy; L89.154 Pressure ulcer of sacral region, stage 4; J69.0 Pneumonitis due to inhalation of food and vomit; I50.23 Acute on chronic systolic (congestive) heart failure; N17.0 Acute kidney failure with tubular necrosis; E44.0 Moderate protein-calorie malnutrition; E87.20 Acidosis, unspecified; M80.08XA Age-related osteoporosis with current pathological fracture, vertebra(e), initial encounter for fracture; A04.72 Enterocolitis due to Clostridium difficile, not specified as recurrent; D68.69 Other thrombophilia; M46.28 Osteomyelitis of vertebra, sacral and sacrococcygeal region; I48.92 Unspecified atrial flutter; I47.1 Supraventricular tachycardia; N39.0 Urinary tract infection, site not specified; I11.0 Hypertensive heart disease with heart failure; E11.65 Type 2 diabetes mellitus with hyperglycemia; E83.42 Hypomagnesemia; E78.5 Hyperlipidemia, unspecified; E87.6 Hypokalemia; E88.09 Other disorders of plasma-protein metabolism, not elsewhere classified; G47.33 Obstructive sleep apnea (adult) (pediatric); I48.0 Paroxysmal atrial fibrillation; K59.00 Constipation, unspecified; N40.0 Benign prostatic hyperplasia without lower urinary tract symptoms; R62.7 Adult failure to thrive; Z79.82 Long term (current) use of aspirin; Z79.01 Long term (current) use of anticoagulants; Z74.01 Bed confinement status; Z91.81 History of falling; Z74.09 Other reduced mobility; N40.1 Benign prostatic hyperplasia with lower urinary tract symptoms; M19.90 Unspecified osteoarthritis, unspecified site; E11.40 Type 2 diabetes mellitus with diabetic neuropathy, unspecified; Z68.25 Body mass index [BMI] 25.0-25.9, adult; Z20.822 Contact with and (suspected) exposure to COVID-19; E11.69 Type 2 diabetes mellitus with other specified complication; R53.1 Weakness; E66.9 Obesity, unspecified; M10.9 Gout, unspecified; Z79.4 Long term (current) use of insulin; K80.20 Calculus of gallbladder without cholecystitis without obstruction; L89.619 Pressure ulcer of right heel, unspecified stage; L89.629 Pressure ulcer of left heel, unspecified stage
CPT/HCPCS: 36415; 36600; 70030-TC; 70450; 71045; 71275; 72131; 72192; 82747; 82803; 83550; 83605; 83735; 84100; 84155; 84165; 84166; 84443; 84484; 84550; 85014; 85025; 85610; 87040; 93005; 93307; A4663; A6209; A6213; C9113; G0378; G0480; J0282; J1650; J1815; J2001; J2060; J2185; J2270; J2370; J3370; J3475; J3480; J3490; J7040; J7050; J7060; P9047; Q9967

== ENCOUNTER 2023-07-16 13:22 | Inpatient (IN) | payer MEDICARE, OTHER ==
[~2023-07-16] VITALS: Ht 175.3 cm; Wt 92.5 kg
[~2023-07-16 13:22] MED LIST: ACET-2030 PO; ALLO300T2 PO; AMIN30LI2 PO; AMLO-212 PO; ASCO500C18 PO; ASCO500T21 PO; ASPI81TA31 PO; BISA10SU61 RC; Blood Sugar Diagnostic VI; CHLO25TA2 PO; CHOL100045 PO; CYAN100T44 PO; CYCL5TAB PO; FAMO20TA8 PO; GABA-532 PO; GABA600T12 PO; HYDR28.316 TP; INSU100I26 SQ; INSU100V39 SQ; Insulin Glargine,Hum SQ; LUBI24CA5 PO; MAGN400O6 PO; MEGE400O5 PO; METF-442 PO; METO100T14 PO; METO50TA16 PO; METR500T PO; NA P133E RC; PANT40TA49 PO; PEG15DRO5 EACHEYE; POLY17PO4 PO; POTA-88 PO; QUET25TA36 PO; RIVA10TA PO; ROSU10TA2 PO; SENN8.6T19 PO; SODI473S8 TP; SOLI5TAB2 PO; TAMS-3 PO; TRAM100T23 PO; VIT1CAPS9 PO; ZINC1CAP3 PO; [UNRECOGNIZED DRUG - OTHER] PO
[2023-07-16 14:17] LABS: BASOPHILS # (AUTO) 0.1 K/UL (0.0-0.2); BASOPHILS % (AUTO) 0.6 % (0.0-2.0); EOSINOPHILS % (AUTO) 0.2 % (0.0-7.0); HEMATOCRIT 32.9 % (36.7-47.1); HEMOGLOBIN 10.9 g/dL (12.5-16.3); LYMPHOCYTES # (AUTO) 2.2 K/uL (0.8-4.8); LYMPHOCYTES % (AUTO) 17.3 % (20.5-51.5); MEAN CORPUSCULAR HEMOGLOBIN 30.2 uug (23.8-33.4); MEAN CORPUSCULAR HGB CONC 33 g/dL (32.5-36.3); MEAN CORPUSCULAR VOLUME 91.3 fL (73.0-96.2); MONOCYTES # (AUTO) 0.6 K/uL (0.1-1.30); MONOCYTES % (AUTO) 4.7 % (0.0-11.0); NEUTROPHILS # (AUTO) 9.7 K/uL (1.8-8.9); NEUTROPHILS % (AUTO) 77.2 % (38.5-71.5); PLATELET COUNT (AUTO) 371 K/uL (152-348); RED CELL DISTRIBUTION WIDTH 16.6 % (12.1-16.2); WHITE BLOOD COUNT (AUTO) 12.5 K/uL (3.6-10.2)
[2023-07-16 14:26] LABS: DIFFERENTIAL COMMENT 1
[2023-07-16 14:44] LABS: CALCIUM 9.5 mg/dL (8.5-10.1); CARBON DIOXIDE 21 mmol/L (21-32); CHLORIDE 98 mmol/L (98-107); CREATININE 0.7 mg/dL (0.6-1.3); GLUCOSE 235 mg/dL (74-106); POTASSIUM 3.8 mmol/L (3.5-5.1); SODIUM SERUM 133 mmol/L (136-145); UREA NITROGEN, BLOOD 28 mg/dL (7-18)
[2023-07-16 15:05] LABS: ALANINE AMINOTRANSFERASE 12 U/L (16-63); ALBUMIN 2.7 g/dL (3.4-5.0); ALKALINE PHOSPHATASE 110 U/L (50-136); ASPARTATE AMINOTRANSFERASE 14 U/L (15-37); BILIRUBIN,DIRECT 0.1 mg/dL (0.0-0.2); BILIRUBIN,TOTAL 0.3 mg/dL (0.2-1.0); TOTAL PROTEIN, SERUM 8.6 g/dL (6.4-8.2)
[2023-07-16 15:12] LABS: LACTIC ACID 4.7 mmol/L (0.4-2.0)
[2023-07-16] MEDS ORDERED: IV NORMAL SALINE 1000 ML BAG IV ONE (15:15)
[2023-07-16] MEDS ORDERED: VANCOMYCIN IV 1,000 MG in IV DEXTROSE 5% 250 ML IV ONE (15:15)
[2023-07-16] MEDS ORDERED: PIPERACILLIN SODIUM/TAZOBACTAM 3.375 G in IV DEXTROSE 5% 50 ML IV ONE (15:15)
[2023-07-16] MEDS: ALLOPURINOL 300 MG TABLET PO SCH (15:30)
[2023-07-16] MEDS ORDERED: REMEDY ESSENTIAL ZINC PASTE 113 GM TP PRN (15:30)
[2023-07-16] MEDS ORDERED: ONDANSETRON 4 MG/2 ML VIAL IV PRN (15:30)
[2023-07-16] MEDS ORDERED: VANCOMYCIN IV 200 ML ONE ×2 (15:55→22:23)
[2023-07-16] MEDS ORDERED: PIPERACILLIN/TAZOBACTAM/D5W 50 ML IV ONE (15:55)
[2023-07-16 16:03] LABS: *CLARITY,URINE TURBID (CLEAR); *COLOR,URINE LIGHT YELLOW (YELLOW)
[2023-07-16 16:04] LABS: UGLUCOSE NEGATIVE (NEGATIVE)
[2023-07-16 16:05] LABS: *KETONES,URINE NEGATIVE (NEGATIVE)
[2023-07-16 16:06] LABS: *BLOOD, URINE TRACE (NEGATIVE)
[2023-07-16 16:08] LABS: *UROBILINOGEN,URINE NORMAL (NORMAL); NITRITE, URINE POSITIVE (NEGATIVE)
[2023-07-16 16:09] LABS: *BILIRUBIN,URIN NEGATIVE (NEGATIVE); PH,URINE 7.5 (5.0-8.0)
[2023-07-16 16:20] LABS: BACTERIA,URINE MANY /HPF (NONE SEEN); RBC,URINE 0-3 /HPF (0-3); SQUAMOUS EPITHELIAL CELL,UR FEW /HPF (NONE SEEN)
[2023-07-16 16:21] LABS: LEUKOCYTE ESTERASE ,URINE 3+ (NEGATIVE); WBC,URINE TNTC /HPF (0-3)
[2023-07-16 16:25] LABS: *PROTEIN,URINE 2+ (NEGATIVE)
[2023-07-16] MEDS: SENNOSIDES 1 TABLET PO SCH (17:00)
[2023-07-16] MEDS ORDERED: METOPROLOL TARTRATE PO SCH (17:00)
[2023-07-16] MEDS ORDERED: Medication Not On Formulary EA (Gabapentin 1 TAB) PO SCH (17:00)
[2023-07-16] MEDS ORDERED: LUBIPROSTONE PO SCH (17:00)
[2023-07-16] MEDS ORDERED: Medication Not On Formulary EA (Rosuvastatin Calcium (Crestor) 1 TAB) PO SCH (21:00)
[2023-07-16] MEDS ORDERED: FAMOTIDINE 20 MG TABLET PO SCH (21:00)
[2023-07-16] MEDS: IV NS 1000 ML 1,000 ML IV PRN (21:50)
[2023-07-16 22:00] VITALS: BP 91/59; TEMP 98.1; O2SAT 99
[2023-07-16] MEDS: PANTOPRAZOLE SODIUM 40 MG VIAL IV SCH (22:01)
[2023-07-16] MEDS: ENOXAPARIN SODIUM 40 MG/0.4 ML DISP.SYRIN SQ SCH (22:02)
[2023-07-16] MEDS ORDERED: VANCOMYCIN 1000 MG VIAL ONE (22:24)
[2023-07-16] MEDS ORDERED: VANCOMYCIN HCL 500 MG VIAL ONE (22:24)
[2023-07-16] MEDS ORDERED: CEFTRIAXONE /D5W 50ML IVPB **ER PYXIS IV ONE (22:25)
[2023-07-16] MEDS: CEFTRIAXONE 1 G in IV DEXTROSE 5% 50 ML IV SCH (22:43)
[2023-07-17] VITALS (8 sets, daily range): BP systolic 93–122; BP diastolic 46–71; TEMP 97.8–98.1; O2SAT 98–100
[2023-07-17] MEDS ORDERED: REMEDY ESSENTIAL ZINC PASTE 113 GM TOP PRN (00:30)
[2023-07-17] MEDS: MORPHINE SULFATE 2 MG/1 ML DISP.SYRIN IV PRN ×4 (01:46→22:03)
[2023-07-17] MEDS ORDERED: VANCOMYCIN IV 1,250 MG in IV DEXTROSE 5% 250 ML IV ONE (03:00)
[2023-07-17 06:58] LABS: BASOPHILS % (AUTO) 0.4 % (0.0-2.0); EOSINOPHILS % (AUTO) 0.2 % (0.0-7.0); HEMATOCRIT 26.3 % (36.7-47.1); HEMOGLOBIN 8.8 g/dL (12.5-16.3); LYMPHOCYTES # (AUTO) 0.9 K/uL (0.8-4.8); LYMPHOCYTES % (AUTO) 8.5 % (20.5-51.5); MEAN CORPUSCULAR HEMOGLOBIN 30.9 uug (23.8-33.4); MEAN CORPUSCULAR HGB CONC 34 g/dL (32.5-36.3); MEAN CORPUSCULAR VOLUME 91.8 fL (73.0-96.2); MONOCYTES # (AUTO) 0.7 K/uL (0.1-1.30); MONOCYTES % (AUTO) 6.6 % (0.0-11.0); NEUTROPHILS # (AUTO) 8.8 K/uL (1.8-8.9); NEUTROPHILS % (AUTO) 84.3 % (38.5-71.5); PLATELET COUNT (AUTO) 278 K/uL (152-348); RED BLOOD CELL COUNT(AUTO) 2.86 MIL/uL (4.06-5.63); RED CELL DISTRIBUTION WIDTH 16.4 % (12.1-16.2); WHITE BLOOD COUNT (AUTO) 10.5 K/uL (3.6-10.2)
[2023-07-17 07:44] LABS: ALBUMIN 2.2 g/dL (3.4-5.0); BILIRUBIN,TOTAL 0.4 mg/dL (0.2-1.0); CALCIUM 8.8 mg/dL (8.5-10.1); CREATININE 0.7 mg/dL (0.6-1.3); POTASSIUM 3.6 mmol/L (3.5-5.1); TOTAL PROTEIN, SERUM 7.2 g/dL (6.4-8.2)
[2023-07-17] MEDS: METFORMIN HCL 500 MG TABLET PO SCH ×2 (08:00→17:04)
[2023-07-17 08:11] LABS: DIFFERENTIAL COMMENT 1
[2023-07-17] MEDS ORDERED: DEXTROSE 50% 50 ML DISP.SYRIN IV PRN ×2 (08:30→16:30)
[2023-07-17] MEDS ORDERED: INSULIN REGULAR, HUMAN 300 UNIT/3 ML VIAL SQ PRN (08:30)
[2023-07-17] MEDS: CHOLECALCIFEROL 1,000 UNIT TABLET PO SCH (09:00)
[2023-07-17] MEDS: GABAPENTIN 300 MG CAPSULE PO SCH ×3 (09:00→16:15)
[2023-07-17] MEDS: SENNOSIDES 1 TABLET PO SCH ×2 (09:00→16:15)
[2023-07-17] MEDS ORDERED: AMLODIPINE 5 MG TABLET PO SCH (09:00)
[2023-07-17] MEDS ORDERED: Medication Not On Formulary EA (Cholecalciferol (Vitamin D3) (Vitamin D3) 1 CAP) PO SCH (09:00)
[2023-07-17] MEDS: ASPIRIN 81 MG TAB.CHEW PO SCH (09:00)
[2023-07-17] MEDS ORDERED: MEGESTROL ACETATE PO SCH (09:00)
[2023-07-17] MEDS: ALLOPURINOL 300 MG TABLET PO SCH (09:00)
[2023-07-17] MEDS: CYANOCOBALAMIN 1,000 MCG TABLET PO SCH (09:00)
[2023-07-17] MEDS: OXYBUTYNIN CHLORIDE 5 MG TABLET PO SCH ×2 (09:00→16:15)
[2023-07-17] MEDS ORDERED: CYANOCOBALAMIN 100 MCG TABLET PO SCH (09:00)
[2023-07-17] MEDS ORDERED: SOLIFENACIN SUCCINATE 5 MG TABEC PO SCH (09:00)
[2023-07-17] MEDS: METOPROLOL TARTRATE 50 MG TABLET PO SCH ×2 (09:00→21:04)
[2023-07-17] MEDS: PANTOPRAZOLE SODIUM 40 MG VIAL IV SCH (09:36)
[2023-07-17] MEDS ORDERED: METOPROLOL TARTRATE 5 MG/5 ML VIAL IVP ONE (09:45)
[2023-07-17] MEDS ORDERED: CHLO25TA2 PO (10:00)
[2023-07-17] MEDS ORDERED: ADENOSINE 6 MG/2 ML SYR IV ONE (10:45)
[2023-07-17] MEDS: REMEDY ESSENTIAL ZINC PASTE 113 GM TOP SCH ×2 (11:07→20:43)
[2023-07-17] MEDS ORDERED: BLOOD SUGAR DIAGNOSTIC 1 EACH STRIP VI SCH (12:00)
[2023-07-17] MEDS: MEGESTROL ACETATE 400 MG/10 ML LIQUID UDC PO SCH (12:00)
[2023-07-17] MEDS: IV NS 1000 ML 1,000 ML IV PRN (12:35)
[2023-07-17] MEDS: SODIUM HYPOCHLORITE 0.125% (QUARTER STRENGTH) 473 ML BOTTLE TP SCH (14:17)
[2023-07-17] MEDS: ACETAMINOPHEN 325 MG TABLET PO PRN (16:38)
[2023-07-17] MEDS: CYCLOBENZAPRINE HCL 10 MG TABLET PO PRN ×2 (16:38→23:06)
[2023-07-17] MEDS: BLOOD SUGAR DIAGNOSTIC 1 EACH STRIP VI SCH ×2 (16:38→20:59)
[2023-07-17] MEDS: INSULIN REGULAR, HUMAN 300 UNIT/3 ML VIAL SQ PRN ×2 (16:40→21:07)
[2023-07-17 20:09] LABS: THYROID STIMULATING HORMONE 0.604 mIU/mL (0.358-3.740)
[2023-07-17] MEDS: TAMSULOSIN HCL 0.4 MG CAP.SR.24H PO SCH (20:40)
[2023-07-17] MEDS: ATORVASTATIN 20 MG TABLET PO SCH (20:41)
[2023-07-17] MEDS: ENOXAPARIN SODIUM 40 MG/0.4 ML DISP.SYRIN SQ SCH (20:43)
[2023-07-17] MEDS: CEFTRIAXONE 1 G in IV DEXTROSE 5% 50 ML IV SCH (21:04)
[2023-07-17] MEDS ORDERED: QUETIAPINE FUMARATE 25 MG TABLET PO ONE (23:45)
[2023-07-18] VITALS (8 sets, daily range): BP systolic 92–109; BP diastolic 51–65; TEMP 97.4–98.6; O2SAT 98–100
[2023-07-18] MEDS: IV NS 1000 ML 1,000 ML IV PRN ×2 (02:53→22:14)
[2023-07-18] MEDS: MORPHINE SULFATE 2 MG/1 ML DISP.SYRIN IV PRN ×3 (05:27→20:53)
[2023-07-18] MEDS: BLOOD SUGAR DIAGNOSTIC 1 EACH STRIP VI SCH ×4 (07:06→21:15)
[2023-07-18] MEDS: CYCLOBENZAPRINE HCL 10 MG TABLET PO PRN ×2 (08:30→23:32)
[2023-07-18] MEDS: OXYBUTYNIN CHLORIDE 5 MG TABLET PO SCH ×2 (08:31→17:29)
[2023-07-18] MEDS: ALLOPURINOL 300 MG TABLET PO SCH (08:31)
[2023-07-18] MEDS: CHOLECALCIFEROL 1,000 UNIT TABLET PO SCH (08:31)
[2023-07-18] MEDS: ASPIRIN 81 MG TAB.CHEW PO SCH (08:31)
[2023-07-18] MEDS: CYANOCOBALAMIN 1,000 MCG TABLET PO SCH (08:31)
[2023-07-18] MEDS: GABAPENTIN 300 MG CAPSULE PO SCH ×3 (08:31→17:29)
[2023-07-18] MEDS: SENNOSIDES 1 TABLET PO SCH ×2 (08:31→17:29)
[2023-07-18] MEDS: METFORMIN HCL 500 MG TABLET PO SCH ×2 (08:31→17:29)
[2023-07-18] MEDS: REMEDY ESSENTIAL ZINC PASTE 113 GM TOP SCH ×2 (08:36→20:30)
[2023-07-18] MEDS: MEGESTROL ACETATE 400 MG/10 ML LIQUID UDC PO SCH (08:36)
[2023-07-18] MEDS: METOPROLOL TARTRATE 50 MG TABLET PO SCH ×2 (08:36→21:50)
[2023-07-18] MEDS: SODIUM HYPOCHLORITE 0.125% (QUARTER STRENGTH) 473 ML BOTTLE TP SCH (08:36)
[2023-07-18] MEDS: PANTOPRAZOLE SODIUM 40 MG TABLET.DR PO SCH (08:36)
[2023-07-18] MEDS: VANCOMYCIN IV 1,250 MG in IV DEXTROSE 5% 250 ML IV SCH (11:04)
[2023-07-18] MEDS: INSULIN REGULAR, HUMAN 300 UNIT/3 ML VIAL SQ PRN ×3 (12:10→21:17)
[2023-07-18] MEDS: RIVAROXABAN 10 MG TABLET PO SCH (17:30)
[2023-07-18] MEDS: ATORVASTATIN 20 MG TABLET PO SCH (20:30)
[2023-07-18] MEDS: TAMSULOSIN HCL 0.4 MG CAP.SR.24H PO SCH (20:30)
[2023-07-18] MEDS: CEFTRIAXONE 1 G in IV DEXTROSE 5% 50 ML IV SCH (22:12)
[2023-07-19] MEDS: VANCOMYCIN IV 1,250 MG in IV DEXTROSE 5% 250 ML IV SCH ×2 (00:17→14:42)
[2023-07-19 00:45] VITALS: BP 109/65
[2023-07-19] MEDS: MORPHINE SULFATE 2 MG/1 ML DISP.SYRIN IV PRN ×2 (00:53→14:37)
[2023-07-19 04:00] VITALS: BP 111/63; TEMP 98; O2SAT 100
[2023-07-19] MEDS: PANTOPRAZOLE SODIUM 40 MG TABLET.DR PO SCH (06:15)
[2023-07-19] MEDS: BLOOD SUGAR DIAGNOSTIC 1 EACH STRIP VI SCH ×4 (06:31→21:25)
[2023-07-19 07:12] LABS: CALCIUM 8.3 mg/dL (8.5-10.1); CREATININE 0.7 mg/dL (0.6-1.3)
[2023-07-19 07:46] VITALS: BP 93/45; TEMP 98.3; O2SAT 100
[2023-07-19] MEDS: ASPIRIN 81 MG TAB.CHEW PO SCH (08:21)
[2023-07-19] MEDS: METFORMIN HCL 500 MG TABLET PO SCH ×2 (08:22→17:03)
[2023-07-19] MEDS: GABAPENTIN 300 MG CAPSULE PO SCH ×3 (08:22→17:04)
[2023-07-19] MEDS: CYANOCOBALAMIN 1,000 MCG TABLET PO SCH (08:22)
[2023-07-19] MEDS: OXYBUTYNIN CHLORIDE 5 MG TABLET PO SCH ×2 (08:22→17:04)
[2023-07-19] MEDS: ALLOPURINOL 300 MG TABLET PO SCH (08:23)
[2023-07-19] MEDS: CHOLECALCIFEROL 1,000 UNIT TABLET PO SCH (08:23)
[2023-07-19] MEDS: SENNOSIDES 1 TABLET PO SCH ×2 (08:23→17:00)
[2023-07-19] MEDS: MEGESTROL ACETATE 400 MG/10 ML LIQUID UDC PO SCH (08:26)
[2023-07-19] MEDS: REMEDY ESSENTIAL ZINC PASTE 113 GM TOP SCH ×2 (08:26→21:20)
[2023-07-19] MEDS: SODIUM HYPOCHLORITE 0.125% (QUARTER STRENGTH) 473 ML BOTTLE TP SCH (08:26)
[2023-07-19] MEDS: POTASSIUM CHLORIDE 50 ML IV SCH ×4 (09:20→13:12)
[2023-07-19 09:35] LABS: BASOPHILS # (AUTO) 0.1 K/UL (0.0-0.2); BASOPHILS % (AUTO) 0.9 % (0.0-2.0); EOSINOPHILS # (AUTO) 0.1 K/uL (0.0-0.7); EOSINOPHILS % (AUTO) 1.6 % (0.0-7.0); HEMATOCRIT 24.5 % (36.7-47.1); HEMOGLOBIN 8.1 g/dL (12.5-16.3); LYMPHOCYTES # (AUTO) 1.6 K/uL (0.8-4.8); LYMPHOCYTES % (AUTO) 19.7 % (20.5-51.5); MEAN CORPUSCULAR HEMOGLOBIN 30.4 uug (23.8-33.4); MEAN CORPUSCULAR HGB CONC 33 g/dL (32.5-36.3); MEAN CORPUSCULAR VOLUME 91.9 fL (73.0-96.2); MONOCYTES # (AUTO) 0.6 K/uL (0.1-1.30); MONOCYTES % (AUTO) 7.3 % (0.0-11.0); NEUTROPHILS # (AUTO) 5.5 K/uL (1.8-8.9); NEUTROPHILS % (AUTO) 70.5 % (38.5-71.5); PLATELET COUNT (AUTO) 192 K/uL (152-348); RED BLOOD CELL COUNT(AUTO) 2.66 MIL/uL (4.06-5.63); RED CELL DISTRIBUTION WIDTH 16.5 % (12.1-16.2); WHITE BLOOD COUNT (AUTO) 7.9 K/uL (3.6-10.2)
[2023-07-19 09:36] LABS: DIFFERENTIAL COMMENT 1
[2023-07-19] MEDS: METOPROLOL TARTRATE 50 MG TABLET PO SCH ×2 (10:35→17:03)
[2023-07-19] MEDS: INSULIN REGULAR, HUMAN 300 UNIT/3 ML VIAL SQ PRN ×3 (12:17→21:32)
[2023-07-19 13:41] VITALS: O2SAT 99
[2023-07-19 16:13] VITALS: BP 105/63; TEMP 97.6; O2SAT 100
[2023-07-19] MEDS: RIVAROXABAN 10 MG TABLET PO SCH (17:07)
[2023-07-19] MEDS: TAMSULOSIN HCL 0.4 MG CAP.SR.24H PO SCH (21:20)
[2023-07-19] MEDS: ATORVASTATIN 20 MG TABLET PO SCH (21:20)
[2023-07-19 21:56] VITALS: BP 104/55; TEMP 97.9; O2SAT 100
[2023-07-19] MEDS: CEFTRIAXONE 1 G in IV DEXTROSE 5% 50 ML IV SCH (22:21)
[2023-07-19] MEDS: IV NS 1000 ML 1,000 ML IV PRN (22:32)
[2023-07-20] VITALS: BP 106/58; TEMP 97.8; O2SAT 100
[2023-07-20 04:00] VITALS: BP 105/61; TEMP 98; O2SAT 100
[2023-07-20] MEDS: VANCOMYCIN IV 1,250 MG in IV DEXTROSE 5% 250 ML IV SCH ×2 (04:00→15:37)
[2023-07-20] MEDS: LORAZEPAM 2 MG/1 ML VIAL IV PRN ×3 (04:21→21:13)
[2023-07-20 05:40] VITALS: O2SAT 98
[2023-07-20] MEDS: PANTOPRAZOLE SODIUM 40 MG TABLET.DR PO SCH (06:21)
[2023-07-20] MEDS: BLOOD SUGAR DIAGNOSTIC 1 EACH STRIP VI SCH ×4 (06:35→20:39)
[2023-07-20] MEDS: METFORMIN HCL 500 MG TABLET PO SCH ×2 (08:58→17:20)
[2023-07-20] MEDS: GABAPENTIN 300 MG CAPSULE PO SCH ×3 (08:59→17:16)
[2023-07-20] MEDS: METOPROLOL TARTRATE 50 MG TABLET PO SCH ×2 (08:59→20:19)
[2023-07-20] MEDS: OXYBUTYNIN CHLORIDE 5 MG TABLET PO SCH ×2 (08:59→17:16)
[2023-07-20] MEDS: ASPIRIN 81 MG TAB.CHEW PO SCH (08:59)
[2023-07-20] MEDS: CHOLECALCIFEROL 1,000 UNIT TABLET PO SCH (08:59)
[2023-07-20] MEDS: SENNOSIDES 1 TABLET PO SCH ×2 (08:59→17:20)
[2023-07-20] MEDS: ALLOPURINOL 300 MG TABLET PO SCH (09:00)
[2023-07-20] MEDS: MEGESTROL ACETATE 400 MG/10 ML LIQUID UDC PO SCH (09:01)
[2023-07-20] MEDS: CYANOCOBALAMIN 1,000 MCG TABLET PO SCH (09:01)
[2023-07-20] MEDS: REMEDY ESSENTIAL ZINC PASTE 113 GM TOP SCH ×2 (09:27→20:20)
[2023-07-20] MEDS: SODIUM HYPOCHLORITE 0.125% (QUARTER STRENGTH) 473 ML BOTTLE TP SCH (09:27)
[2023-07-20 12:00] VITALS: BP 103/61; TEMP 97.7; O2SAT 100; O2SAT 99
[2023-07-20] MEDS: INSULIN REGULAR, HUMAN 300 UNIT/3 ML VIAL SQ PRN ×2 (13:09→20:42)
[2023-07-20 16:00] VITALS: BP 100/68; TEMP 97.7; O2SAT 100
[2023-07-20] MEDS: RIVAROXABAN 10 MG TABLET PO SCH (17:20)
[2023-07-20 20:00] VITALS: BP 116/68; TEMP 97.8; O2SAT 100
[2023-07-20] MEDS: TAMSULOSIN HCL 0.4 MG CAP.SR.24H PO SCH (20:16)
[2023-07-20] MEDS: IV NS 1000 ML 1,000 ML IV PRN (20:16)
[2023-07-20] MEDS: ATORVASTATIN 20 MG TABLET PO SCH (20:19)
[2023-07-20] MEDS: CYCLOBENZAPRINE HCL 10 MG TABLET PO PRN (20:19)
[2023-07-20] MEDS: CEFTRIAXONE 1 G in IV DEXTROSE 5% 50 ML IV SCH (21:16)
[2023-07-21 00:04] VITALS: BP 106/58; TEMP 97.9; O2SAT 100
[2023-07-21] MEDS: MORPHINE SULFATE 2 MG/1 ML DISP.SYRIN IV PRN ×3 (00:41→22:30)
[2023-07-21 04:18] VITALS: O2SAT 98
[2023-07-21 05:26] VITALS: BP 112/64; TEMP 98; O2SAT 100
[2023-07-21] MEDS: PANTOPRAZOLE SODIUM 40 MG TABLET.DR PO SCH (06:02)
[2023-07-21] MEDS: BLOOD SUGAR DIAGNOSTIC 1 EACH STRIP VI SCH ×4 (06:31→21:24)
[2023-07-21 06:48] LABS: CREATININE 0.7 mg/dL (0.6-1.3)
[2023-07-21] MEDS ORDERED: POTASSIUM CHLORIDE 20 MEQ POWDER PACKET GT ONE (07:45)
[2023-07-21] MEDS: POTASSIUM CHLORIDE 50 ML IV SCH ×4 (08:30→11:50)
[2023-07-21] MEDS: METFORMIN HCL 500 MG TABLET PO SCH ×2 (08:33→18:25)
[2023-07-21] MEDS: INSULIN REGULAR, HUMAN 300 UNIT/3 ML VIAL SQ PRN ×4 (08:35→21:28)
[2023-07-21] MEDS: ALLOPURINOL 300 MG TABLET PO SCH (09:00)
[2023-07-21] MEDS: GABAPENTIN 300 MG CAPSULE PO SCH ×3 (09:00→16:43)
[2023-07-21] MEDS: CYANOCOBALAMIN 1,000 MCG TABLET PO SCH (09:01)
[2023-07-21] MEDS: OXYBUTYNIN CHLORIDE 5 MG TABLET PO SCH ×2 (09:01→16:43)
[2023-07-21] MEDS: PAROXETINE HCL 10 MG TABLET PO SCH (09:01)
[2023-07-21] MEDS: CHOLECALCIFEROL 1,000 UNIT TABLET PO SCH (09:01)
[2023-07-21] MEDS: ASPIRIN 81 MG TAB.CHEW PO SCH (09:01)
[2023-07-21] MEDS: QUETIAPINE FUMARATE 25 MG TABLET PO PRN ×2 (09:02→21:07)
[2023-07-21] MEDS: METOPROLOL TARTRATE 50 MG TABLET PO SCH ×2 (09:06→21:08)
[2023-07-21] MEDS: MEGESTROL ACETATE 400 MG/10 ML LIQUID UDC PO SCH (09:08)
[2023-07-21] MEDS: SENNOSIDES 1 TABLET PO SCH ×2 (09:08→16:48)
[2023-07-21] MEDS: VANCOMYCIN IV 1,250 MG in IV DEXTROSE 5% 250 ML IV SCH (09:09)
[2023-07-21] MEDS: SODIUM HYPOCHLORITE 0.125% (QUARTER STRENGTH) 473 ML BOTTLE TP SCH (09:11)
[2023-07-21] MEDS: REMEDY ESSENTIAL ZINC PASTE 113 GM TOP SCH ×2 (09:18→21:26)
[2023-07-21] MEDS: ACETAMINOPHEN 325 MG TABLET PO PRN (15:06)
[2023-07-21 16:28] VITALS: O2SAT 98
[2023-07-21] MEDS: GLUCERNA SHAKE 237 ML CAN PO SCH (16:43)
[2023-07-21] MEDS: PROTEIN SUPPLEMENT (PROSTAT) 30 ML LIQUID PO SCH (16:51)
[2023-07-21] MEDS: LORAZEPAM 1 MG TABLET PO PRN (18:25)
[2023-07-21] MEDS: RIVAROXABAN 10 MG TABLET PO SCH (18:27)
[2023-07-21 20:10] VITALS: BP 109/58; TEMP 98.6; O2SAT 97
[2023-07-21 21:00] VITALS: O2SAT 98
[2023-07-21] MEDS: ATORVASTATIN 20 MG TABLET PO SCH (21:08)
[2023-07-21] MEDS: TAMSULOSIN HCL 0.4 MG CAP.SR.24H PO SCH (21:10)
[2023-07-21] MEDS: CEFTRIAXONE 1 G in IV DEXTROSE 5% 50 ML IV SCH (21:26)
[2023-07-22] VITALS (7 sets, daily range): BP systolic 95–110; BP diastolic 48–60; TEMP 97.9–98.8; O2SAT 96–100
[2023-07-22] MEDS: VANCOMYCIN IV 1,250 MG in IV DEXTROSE 5% 250 ML IV SCH ×2 (02:39→20:41)
[2023-07-22] MEDS: ACETAMINOPHEN 325 MG TABLET PO PRN (02:59)
[2023-07-22] MEDS: LORAZEPAM 1 MG TABLET PO PRN (02:59)
[2023-07-22] MEDS: MORPHINE SULFATE 2 MG/1 ML DISP.SYRIN IV PRN ×3 (03:41→23:36)
[2023-07-22] MEDS: BLOOD SUGAR DIAGNOSTIC 1 EACH STRIP VI SCH ×4 (06:33→20:58)
[2023-07-22] MEDS: PANTOPRAZOLE SODIUM 40 MG TABLET.DR PO SCH (06:34)
[2023-07-22] MEDS: INSULIN REGULAR, HUMAN 300 UNIT/3 ML VIAL SQ PRN ×4 (08:16→21:46)
[2023-07-22] MEDS: CYANOCOBALAMIN 1,000 MCG TABLET PO SCH (08:30)
[2023-07-22] MEDS: OXYBUTYNIN CHLORIDE 5 MG TABLET PO SCH ×2 (08:30→17:23)
[2023-07-22] MEDS: PAROXETINE HCL 10 MG TABLET PO SCH (08:30)
[2023-07-22] MEDS: METFORMIN HCL 500 MG TABLET PO SCH ×2 (08:30→17:23)
[2023-07-22] MEDS: GABAPENTIN 300 MG CAPSULE PO SCH ×3 (08:30→17:22)
[2023-07-22] MEDS: CHOLECALCIFEROL 1,000 UNIT TABLET PO SCH (08:30)
[2023-07-22] MEDS: ALLOPURINOL 300 MG TABLET PO SCH (08:30)
[2023-07-22] MEDS: METOPROLOL TARTRATE 50 MG TABLET PO SCH ×2 (08:34→20:44)
[2023-07-22] MEDS: ASPIRIN 81 MG TAB.CHEW PO SCH (08:35)
[2023-07-22] MEDS: SENNOSIDES 1 TABLET PO SCH ×2 (08:35→17:28)
[2023-07-22] MEDS: MEGESTROL ACETATE 400 MG/10 ML LIQUID UDC PO SCH (08:35)
[2023-07-22] MEDS: PROTEIN SUPPLEMENT (PROSTAT) 30 ML LIQUID PO SCH ×2 (08:36→17:26)
[2023-07-22] MEDS: SODIUM HYPOCHLORITE 0.125% (QUARTER STRENGTH) 473 ML BOTTLE TP SCH (08:39)
[2023-07-22] MEDS: REMEDY ESSENTIAL ZINC PASTE 113 GM TOP SCH ×2 (08:39→20:59)
[2023-07-22] MEDS: GLUCERNA SHAKE 237 ML CAN PO SCH ×2 (08:40→17:25)
[2023-07-22] MEDS: RIVAROXABAN 10 MG TABLET PO SCH (17:24)
[2023-07-22] MEDS: VANCOMYCIN FOR PO/GT/NG USE PO SCH ×2 (17:25→20:41)
[2023-07-22] MEDS: TAMSULOSIN HCL 0.4 MG CAP.SR.24H PO SCH (20:41)
[2023-07-22] MEDS: ATORVASTATIN 20 MG TABLET PO SCH (20:41)
[2023-07-22] MEDS: QUETIAPINE FUMARATE 25 MG TABLET PO PRN (20:50)
[2023-07-22] MEDS: CEFTRIAXONE 1 G in IV DEXTROSE 5% 50 ML IV SCH (22:31)
[2023-07-23] VITALS (7 sets, daily range): BP systolic 98–121; BP diastolic 51–69; TEMP 97.8–99.1; O2SAT 99–100
[2023-07-23] MEDS: IV NS 1000 ML 1,000 ML IV PRN (01:47)
[2023-07-23] MEDS: PANTOPRAZOLE SODIUM 40 MG TABLET.DR PO SCH (06:30)
[2023-07-23] MEDS: BLOOD SUGAR DIAGNOSTIC 1 EACH STRIP VI SCH ×4 (06:48→21:41)
[2023-07-23] MEDS: METOPROLOL TARTRATE 50 MG TABLET PO SCH ×2 (09:00→21:00)
[2023-07-23] MEDS: ASPIRIN 81 MG TAB.CHEW PO SCH (09:23)
[2023-07-23] MEDS: CHOLECALCIFEROL 1,000 UNIT TABLET PO SCH (09:23)
[2023-07-23] MEDS: GABAPENTIN 300 MG CAPSULE PO SCH ×3 (09:23→16:33)
[2023-07-23] MEDS: METFORMIN HCL 500 MG TABLET PO SCH ×2 (09:24→17:51)
[2023-07-23] MEDS: SENNOSIDES 1 TABLET PO SCH ×2 (09:24→16:33)
[2023-07-23] MEDS: GLUCERNA SHAKE 237 ML CAN PO SCH ×2 (09:26→16:37)
[2023-07-23] MEDS: MEGESTROL ACETATE 400 MG/10 ML LIQUID UDC PO SCH (09:42)
[2023-07-23] MEDS: PAROXETINE HCL 10 MG TABLET PO SCH (10:57)
[2023-07-23] MEDS: OXYBUTYNIN CHLORIDE 5 MG TABLET PO SCH ×2 (10:57→16:35)
[2023-07-23] MEDS: CYANOCOBALAMIN 1,000 MCG TABLET PO SCH (10:58)
[2023-07-23] MEDS: SODIUM HYPOCHLORITE 0.125% (QUARTER STRENGTH) 473 ML BOTTLE TP SCH (11:00)
[2023-07-23] MEDS: VANCOMYCIN FOR PO/GT/NG USE PO SCH ×4 (11:00→21:33)
[2023-07-23] MEDS: REMEDY ESSENTIAL ZINC PASTE 113 GM TOP SCH ×2 (11:00→21:28)
[2023-07-23] MEDS: ALLOPURINOL 300 MG TABLET PO SCH (11:03)
[2023-07-23] MEDS: PROTEIN SUPPLEMENT (PROSTAT) 30 ML LIQUID PO SCH ×2 (11:04→16:34)
[2023-07-23] MEDS: RIVAROXABAN 10 MG TABLET PO SCH (17:50)
[2023-07-23] MEDS: VANCOMYCIN IV 1,250 MG in IV DEXTROSE 5% 250 ML IV SCH (17:50)
[2023-07-23] MEDS: QUETIAPINE FUMARATE 25 MG TABLET PO PRN (20:25)
[2023-07-23] MEDS: INSULIN REGULAR, HUMAN 300 UNIT/3 ML VIAL SQ PRN (21:39)
[2023-07-23] MEDS: ATORVASTATIN 20 MG TABLET PO SCH (21:40)
[2023-07-23] MEDS: TAMSULOSIN HCL 0.4 MG CAP.SR.24H PO SCH (21:40)
[2023-07-23] MEDS: CEFTRIAXONE 1 G in IV DEXTROSE 5% 50 ML IV SCH (21:41)
[2023-07-24] VITALS (8 sets, daily range): BP systolic 94–128; BP diastolic 58–71; TEMP 97.6–98.9; O2SAT 98–100
[2023-07-24] MEDS: IV NS 1000 ML 1,000 ML IV PRN ×2 (00:18→14:36)
[2023-07-24] MEDS: LORAZEPAM 1 MG TABLET PO PRN (02:37)
[2023-07-24 04:57] LABS: BASOPHILS % (AUTO) 0.5 % (0.0-2.0); EOSINOPHILS # (AUTO) 0.1 K/uL (0.0-0.7); EOSINOPHILS % (AUTO) 1.4 % (0.0-7.0); HEMATOCRIT 22.8 % (36.7-47.1); HEMOGLOBIN 7.5 g/dL (12.5-16.3); LYMPHOCYTES # (AUTO) 1.5 K/uL (0.8-4.8); LYMPHOCYTES % (AUTO) 22.3 % (20.5-51.5); MEAN CORPUSCULAR HEMOGLOBIN 30.6 uug (23.8-33.4); MEAN CORPUSCULAR HGB CONC 33 g/dL (32.5-36.3); MEAN CORPUSCULAR VOLUME 92.6 fL (73.0-96.2); MONOCYTES # (AUTO) 0.4 K/uL (0.1-1.30); MONOCYTES % (AUTO) 5.8 % (0.0-11.0); NEUTROPHILS # (AUTO) 4.7 K/uL (1.8-8.9); PLATELET COUNT (AUTO) 217 K/uL (152-348); RED CELL DISTRIBUTION WIDTH 15.8 % (12.1-16.2); WHITE BLOOD COUNT (AUTO) 6.7 K/uL (3.6-10.2)
[2023-07-24 05:22] LABS: DIFFERENTIAL COMMENT 1; RED BLOOD CELL COUNT(AUTO) 2.46 MIL/uL (4.06-5.63)
[2023-07-24 05:25] LABS: CALCIUM 7.9 mg/dL (8.5-10.1); CREATININE 0.7 mg/dL (0.6-1.3)
[2023-07-24 05:43] LABS: POTASSIUM 2.7 mmol/L (3.5-5.1)
[2023-07-24] MEDS: POTASSIUM CHLORIDE 50 ML IV SCH ×8 (06:27→13:50)
[2023-07-24] MEDS: PANTOPRAZOLE SODIUM 40 MG TABLET.DR PO SCH (06:46)
[2023-07-24] MEDS: BLOOD SUGAR DIAGNOSTIC 1 EACH STRIP VI SCH ×4 (06:58→20:26)
[2023-07-24] MEDS: INSULIN REGULAR, HUMAN 300 UNIT/3 ML VIAL SQ PRN ×4 (07:00→20:17)
[2023-07-24] MEDS: SENNOSIDES 1 TABLET PO SCH ×2 (08:18→17:24)
[2023-07-24] MEDS: METFORMIN HCL 500 MG TABLET PO SCH ×2 (08:19→17:24)
[2023-07-24] MEDS: METOPROLOL TARTRATE 50 MG TABLET PO SCH ×2 (08:19→20:08)
[2023-07-24] MEDS: ALLOPURINOL 300 MG TABLET PO SCH (08:19)
[2023-07-24] MEDS: CHOLECALCIFEROL 1,000 UNIT TABLET PO SCH (08:19)
[2023-07-24] MEDS: GABAPENTIN 300 MG CAPSULE PO SCH ×3 (08:20→17:24)
[2023-07-24] MEDS: MEGESTROL ACETATE 400 MG/10 ML LIQUID UDC PO SCH (08:20)
[2023-07-24] MEDS: OXYBUTYNIN CHLORIDE 5 MG TABLET PO SCH ×2 (08:20→17:23)
[2023-07-24] MEDS: GLUCERNA SHAKE 237 ML CAN PO SCH ×2 (08:21→17:54)
[2023-07-24] MEDS: PAROXETINE HCL 10 MG TABLET PO SCH (08:22)
[2023-07-24] MEDS: CYANOCOBALAMIN 1,000 MCG TABLET PO SCH (08:22)
[2023-07-24] MEDS: VANCOMYCIN FOR PO/GT/NG USE PO SCH ×4 (08:26→20:10)
[2023-07-24] MEDS: PROTEIN SUPPLEMENT (PROSTAT) 30 ML LIQUID PO SCH ×2 (08:28→17:54)
[2023-07-24] MEDS: SODIUM HYPOCHLORITE 0.125% (QUARTER STRENGTH) 473 ML BOTTLE TP SCH (09:00)
[2023-07-24] MEDS: REMEDY ESSENTIAL ZINC PASTE 113 GM TOP SCH ×2 (09:00→20:12)
[2023-07-24] MEDS: MAGNESIUM OXIDE 400 MG TABLET PO SCH ×2 (14:36→20:09)
[2023-07-24] MEDS: VANCOMYCIN IV 1,250 MG in IV DEXTROSE 5% 250 ML IV SCH (15:01)
[2023-07-24] MEDS: RIVAROXABAN 10 MG TABLET PO SCH (17:35)
[2023-07-24] MEDS: CYCLOBENZAPRINE HCL 10 MG TABLET PO PRN (19:37)
[2023-07-24] MEDS: QUETIAPINE FUMARATE 25 MG TABLET PO PRN (19:37)
[2023-07-24] MEDS: ATORVASTATIN 20 MG TABLET PO SCH (20:09)
[2023-07-24] MEDS: TAMSULOSIN HCL 0.4 MG CAP.SR.24H PO SCH (20:09)
[2023-07-24] MEDS: CEFTRIAXONE 1 G in IV DEXTROSE 5% 50 ML IV SCH (21:40)
[2023-07-24] MEDS: MORPHINE SULFATE 2 MG/1 ML DISP.SYRIN IV PRN (22:16)
[2023-07-25] VITALS: BP 105/75; TEMP 99; O2SAT 100
[2023-07-25] MEDS ORDERED: DILTIAZEM HCL 25 MG IV IV ONE
[2023-07-25] MEDS ORDERED: DILTIAZEM HCL 25 MG IV ONE (00:22)
[2023-07-25 00:33] LABS: CALCIUM 7.8 mg/dL (8.5-10.1); CREATININE 0.7 mg/dL (0.6-1.3); POTASSIUM 3.5 mmol/L (3.5-5.1)
[2023-07-25 04:00] VITALS: BP 100/56; TEMP 98; O2SAT 100
[2023-07-25] MEDS ORDERED: DILTIAZEM HCL IV 125 MG in IV NORMAL SALINE 100 ML IV PRN ×3 (06:15)
[2023-07-25] MEDS: IV NS 1000 ML 1,000 ML IV PRN (06:16)
[2023-07-25] MEDS: PANTOPRAZOLE SODIUM 40 MG TABLET.DR PO SCH (06:44)
[2023-07-25] MEDS: BLOOD SUGAR DIAGNOSTIC 1 EACH STRIP VI SCH ×4 (06:45→20:48)
[2023-07-25 06:56] LABS: BASOPHILS % (AUTO) 0.5 % (0.0-2.0); DIFFERENTIAL COMMENT 1; EOSINOPHILS # (AUTO) 0.1 K/uL (0.0-0.7); EOSINOPHILS % (AUTO) 1.4 % (0.0-7.0); HEMATOCRIT 23.1 % (36.7-47.1); HEMOGLOBIN 7.7 g/dL (12.5-16.3); LYMPHOCYTES # (AUTO) 1.6 K/uL (0.8-4.8); LYMPHOCYTES % (AUTO) 24.8 % (20.5-51.5); MEAN CORPUSCULAR HEMOGLOBIN 31.2 uug (23.8-33.4); MEAN CORPUSCULAR HGB CONC 33 g/dL (32.5-36.3); MEAN CORPUSCULAR VOLUME 93.5 fL (73.0-96.2); MONOCYTES # (AUTO) 0.4 K/uL (0.1-1.30); MONOCYTES % (AUTO) 6.8 % (0.0-11.0); NEUTROPHILS # (AUTO) 4.3 K/uL (1.8-8.9); NEUTROPHILS % (AUTO) 66.5 % (38.5-71.5); PLATELET COUNT (AUTO) 226 K/uL (152-348); RED BLOOD CELL COUNT(AUTO) 2.48 MIL/uL (4.06-5.63); RED CELL DISTRIBUTION WIDTH 15.6 % (12.1-16.2); WHITE BLOOD COUNT (AUTO) 6.5 K/uL (3.6-10.2)
[2023-07-25 07:05] LABS: CALCIUM 8.7 mg/dL (8.5-10.1); CARBON DIOXIDE 24 mmol/L (21-32); CHLORIDE 108 mmol/L (98-107); CREATININE 0.6 mg/dL (0.6-1.3); GLUCOSE 188 mg/dL (74-106); MAGNESIUM 1.4 mg/dL (1.8-2.4); POTASSIUM 4.4 mmol/L (3.5-5.1); SODIUM SERUM 143 mmol/L (136-145); UREA NITROGEN, BLOOD 10 mg/dL (7-18)
[2023-07-25 08:00] VITALS: BP 104/56; TEMP 98.6; O2SAT 100
[2023-07-25] MEDS: INSULIN REGULAR, HUMAN 300 UNIT/3 ML VIAL SQ PRN ×3 (08:00→20:57)
[2023-07-25] MEDS: GLUCERNA SHAKE 237 ML CAN PO SCH ×2 (08:00→16:51)
[2023-07-25] MEDS: QUETIAPINE FUMARATE 25 MG TABLET PO PRN ×2 (09:00→17:43)
[2023-07-25] MEDS: SODIUM HYPOCHLORITE 0.125% (QUARTER STRENGTH) 473 ML BOTTLE TP SCH (09:00)
[2023-07-25] MEDS: METFORMIN HCL 500 MG TABLET PO SCH ×2 (09:33→17:09)
[2023-07-25] MEDS: MAGNESIUM SULFATE/D5W 100 ML IV SCH ×4 (09:33→12:32)
[2023-07-25] MEDS: OXYBUTYNIN CHLORIDE 5 MG TABLET PO SCH ×2 (09:35→16:57)
[2023-07-25] MEDS: METOPROLOL TARTRATE 50 MG TABLET PO SCH ×2 (09:36→20:25)
[2023-07-25] MEDS: MEGESTROL ACETATE 400 MG/10 ML LIQUID UDC PO SCH (09:36)
[2023-07-25] MEDS: PROTEIN SUPPLEMENT (PROSTAT) 30 ML LIQUID PO SCH ×2 (09:37→16:52)
[2023-07-25] MEDS: GABAPENTIN 300 MG CAPSULE PO SCH ×3 (09:37→16:56)
[2023-07-25] MEDS: CHOLECALCIFEROL 1,000 UNIT TABLET PO SCH (09:38)
[2023-07-25] MEDS: LORAZEPAM 1 MG TABLET PO PRN (09:38)
[2023-07-25] MEDS: REMEDY ESSENTIAL ZINC PASTE 113 GM TOP SCH ×2 (09:39→20:51)
[2023-07-25] MEDS: ALLOPURINOL 300 MG TABLET PO SCH (09:39)
[2023-07-25] MEDS: PAROXETINE HCL 10 MG TABLET PO SCH (09:39)
[2023-07-25] MEDS: CYCLOBENZAPRINE HCL 10 MG TABLET PO PRN (09:42)
[2023-07-25] MEDS: SENNOSIDES 1 TABLET PO SCH ×2 (09:44→16:56)
[2023-07-25] MEDS: MORPHINE SULFATE 2 MG/1 ML DISP.SYRIN IV PRN ×3 (09:44→22:42)
[2023-07-25] MEDS: CYANOCOBALAMIN 1,000 MCG TABLET PO SCH (09:46)
[2023-07-25] MEDS: VANCOMYCIN FOR PO/GT/NG USE PO SCH ×4 (10:49→20:23)
[2023-07-25 12:00] VITALS: BP 94/43; TEMP 98.2; O2SAT 100
[2023-07-25] MEDS: VANCOMYCIN IV 1,250 MG in IV DEXTROSE 5% 250 ML IV SCH (12:57)
[2023-07-25] MEDS ORDERED: DIGOXIN 500 MCG/2 ML AMP IV ONE ×2 (13:45→20:00)
[2023-07-25] MEDS: RIVAROXABAN 10 MG TABLET PO SCH (17:12)
[2023-07-25 20:00] VITALS: BP 100/56; TEMP 98.6; O2SAT 100
[2023-07-25] MEDS: TAMSULOSIN HCL 0.4 MG CAP.SR.24H PO SCH (20:24)
[2023-07-25] MEDS: ATORVASTATIN 20 MG TABLET PO SCH (20:24)
[2023-07-25 20:28] VITALS: O2SAT 99
[2023-07-25] MEDS: CEFTRIAXONE 1 G in IV DEXTROSE 5% 50 ML IV SCH (21:04)
[2023-07-26] VITALS (8 sets, daily range): BP systolic 101–106; BP diastolic 49–67; TEMP 98.1–99.1; O2SAT 99–100
[2023-07-26] MEDS: IV NS 1000 ML 1,000 ML IV PRN ×2 (02:46→20:58)
[2023-07-26 05:18] LABS: CALCIUM 7.8 mg/dL (8.5-10.1); CREATININE 0.7 mg/dL (0.6-1.3); MAGNESIUM 1.7 mg/dL (1.8-2.4); POTASSIUM 3.4 mmol/L (3.5-5.1)
[2023-07-26] MEDS: MORPHINE SULFATE 2 MG/1 ML DISP.SYRIN IV PRN ×2 (07:12→12:30)
[2023-07-26] MEDS: BLOOD SUGAR DIAGNOSTIC 1 EACH STRIP VI SCH ×4 (07:30→21:35)
[2023-07-26] MEDS: GLUCERNA SHAKE 237 ML CAN PO SCH ×2 (08:06→16:36)
[2023-07-26] MEDS: GABAPENTIN 300 MG CAPSULE PO SCH ×3 (08:53→16:33)
[2023-07-26] MEDS: PANTOPRAZOLE SODIUM 40 MG TABLET.DR PO SCH (08:53)
[2023-07-26] MEDS: METFORMIN HCL 500 MG TABLET PO SCH ×2 (08:54→17:01)
[2023-07-26] MEDS: VANCOMYCIN IV 1,250 MG in IV DEXTROSE 5% 250 ML IV SCH (08:55)
[2023-07-26] MEDS: OXYBUTYNIN CHLORIDE 5 MG TABLET PO SCH ×2 (08:55→16:38)
[2023-07-26] MEDS: DIGOXIN 125 MCG TABLET PO SCH (08:56)
[2023-07-26] MEDS: MEGESTROL ACETATE 400 MG/10 ML LIQUID UDC PO SCH (08:56)
[2023-07-26] MEDS: METOPROLOL TARTRATE 50 MG TABLET PO SCH ×2 (08:56→21:00)
[2023-07-26] MEDS: ALLOPURINOL 300 MG TABLET PO SCH (08:57)
[2023-07-26] MEDS: CYCLOBENZAPRINE HCL 10 MG TABLET PO PRN (08:57)
[2023-07-26] MEDS: LORAZEPAM 1 MG TABLET PO PRN (08:57)
[2023-07-26] MEDS: PAROXETINE HCL 10 MG TABLET PO SCH (08:57)
[2023-07-26] MEDS: CHOLECALCIFEROL 1,000 UNIT TABLET PO SCH (08:58)
[2023-07-26] MEDS: CYANOCOBALAMIN 1,000 MCG TABLET PO SCH (08:58)
[2023-07-26] MEDS: SENNOSIDES 1 TABLET PO SCH ×2 (08:58→16:33)
[2023-07-26] MEDS: SODIUM HYPOCHLORITE 0.125% (QUARTER STRENGTH) 473 ML BOTTLE TP SCH (08:59)
[2023-07-26] MEDS: VANCOMYCIN FOR PO/GT/NG USE PO SCH ×4 (08:59→21:00)
[2023-07-26] MEDS: REMEDY ESSENTIAL ZINC PASTE 113 GM TOP SCH ×2 (08:59→21:35)
[2023-07-26] MEDS: PROTEIN SUPPLEMENT (PROSTAT) 30 ML LIQUID PO SCH ×2 (09:00→16:36)
[2023-07-26] MEDS: QUETIAPINE FUMARATE 25 MG TABLET PO PRN ×2 (09:01→17:13)
[2023-07-26] MEDS ORDERED: POTASSIUM CHLORIDE 20 MEQ POWDER PACKET PO ONE (09:15)
[2023-07-26] MEDS: MAGNESIUM SULFATE/D5W 100 ML IV SCH ×2 (11:13→13:14)
[2023-07-26] MEDS: INSULIN REGULAR, HUMAN 300 UNIT/3 ML VIAL SQ PRN ×2 (13:25→17:17)
[2023-07-26] MEDS: RIVAROXABAN 10 MG TABLET PO SCH (17:02)
[2023-07-26] MEDS: CEFTRIAXONE 1 G in IV DEXTROSE 5% 50 ML IV SCH (21:13)
[2023-07-26] MEDS: TAMSULOSIN HCL 0.4 MG CAP.SR.24H PO SCH (21:15)
[2023-07-26] MEDS: ATORVASTATIN 20 MG TABLET PO SCH (21:16)
[2023-07-27] MEDS: MORPHINE SULFATE 2 MG/1 ML DISP.SYRIN IV PRN ×2 (03:40→15:28)
[2023-07-27 04:00] VITALS: BP 95/57; TEMP 98.5; O2SAT 100
[2023-07-27 05:34] LABS: CALCIUM 8.3 mg/dL (8.5-10.1); CARBON DIOXIDE 24 mmol/L (21-32); CHLORIDE 107 mmol/L (98-107); CREATININE 0.6 mg/dL (0.6-1.3); DIGOXIN 0.7 ng/mL (0.9-2.0); GLUCOSE 140 mg/dL (74-106); MAGNESIUM 1.9 mg/dL (1.8-2.4); POTASSIUM 3.6 mmol/L (3.5-5.1); SODIUM SERUM 139 mmol/L (136-145); UREA NITROGEN, BLOOD 14 mg/dL (7-18)
[2023-07-27] MEDS: VANCOMYCIN IV 1,250 MG in IV DEXTROSE 5% 250 ML IV SCH (06:20)
[2023-07-27] MEDS: PANTOPRAZOLE SODIUM 40 MG TABLET.DR PO SCH (07:37)
[2023-07-27] MEDS: BLOOD SUGAR DIAGNOSTIC 1 EACH STRIP VI SCH ×4 (07:50→20:55)
[2023-07-27] MEDS: INSULIN REGULAR, HUMAN 300 UNIT/3 ML VIAL SQ PRN ×4 (07:53→20:57)
[2023-07-27] MEDS: GLUCERNA SHAKE 237 ML CAN PO SCH ×2 (08:00→17:17)
[2023-07-27] MEDS ORDERED: POTASSIUM CHLORIDE 20 MEQ POWDER PACKET PO ONE (08:30)
[2023-07-27] MEDS: GABAPENTIN 300 MG CAPSULE PO SCH ×3 (09:32→17:13)
[2023-07-27] MEDS: DIGOXIN 125 MCG TABLET PO SCH (09:32)
[2023-07-27] MEDS: ALLOPURINOL 300 MG TABLET PO SCH (09:32)
[2023-07-27] MEDS: CHOLECALCIFEROL 1,000 UNIT TABLET PO SCH (09:33)
[2023-07-27] MEDS: MEGESTROL ACETATE 400 MG/10 ML LIQUID UDC PO SCH (09:33)
[2023-07-27] MEDS: METOPROLOL TARTRATE 50 MG TABLET PO SCH ×2 (09:33→20:35)
[2023-07-27 09:38] VITALS: O2SAT 100
[2023-07-27] MEDS: SENNOSIDES 1 TABLET PO SCH ×2 (09:38→17:13)
[2023-07-27] MEDS: CYANOCOBALAMIN 1,000 MCG TABLET PO SCH (09:38)
[2023-07-27] MEDS: OXYBUTYNIN CHLORIDE 5 MG TABLET PO SCH ×2 (09:39→17:15)
[2023-07-27] MEDS: PAROXETINE HCL 10 MG TABLET PO SCH (09:39)
[2023-07-27] MEDS: MAGNESIUM SULFATE/D5W 100 ML IV SCH ×2 (09:40→12:24)
[2023-07-27] MEDS: METFORMIN HCL 500 MG TABLET PO SCH ×2 (09:40→17:13)
[2023-07-27] MEDS: PROTEIN SUPPLEMENT (PROSTAT) 30 ML LIQUID PO SCH ×2 (09:55→17:16)
[2023-07-27] MEDS: VANCOMYCIN FOR PO/GT/NG USE PO SCH ×4 (10:05→20:36)
[2023-07-27] MEDS: REMEDY ESSENTIAL ZINC PASTE 113 GM TOP SCH ×2 (10:08→20:41)
[2023-07-27] MEDS: SODIUM HYPOCHLORITE 0.125% (QUARTER STRENGTH) 473 ML BOTTLE TP SCH (10:08)
[2023-07-27] MEDS: QUETIAPINE FUMARATE 25 MG TABLET PO PRN ×2 (13:15→21:00)
[2023-07-27] MEDS: IV NS 1000 ML 1,000 ML IV PRN (15:29)
[2023-07-27 16:00] VITALS: BP 103/50; TEMP 97.6; O2SAT 100
[2023-07-27] MEDS: RIVAROXABAN 10 MG TABLET PO SCH (17:14)
[2023-07-27] MEDS: LORAZEPAM 1 MG TABLET PO PRN (17:20)
[2023-07-27] MEDS: ACETAMINOPHEN 325 MG TABLET PO PRN (17:22)
[2023-07-27 20:00] VITALS: BP_SYST 105; BP_DIAS 59; BP_DIAS 9; TEMP 99.6; O2SAT 100
[2023-07-27] MEDS: TAMSULOSIN HCL 0.4 MG CAP.SR.24H PO SCH (20:35)
[2023-07-27] MEDS: ATORVASTATIN 20 MG TABLET PO SCH (20:36)
[2023-07-27] MEDS: CYCLOBENZAPRINE HCL 10 MG TABLET PO PRN (21:00)
[2023-07-27] MEDS: CEFEPIME HCL 2 G in IV DEXTROSE 5% 100 ML IV SCH (21:29)
[2023-07-28] VITALS (9 sets, daily range): BP systolic 102–109; BP diastolic 55–79; TEMP 97.7–98; O2SAT 98–100
[2023-07-28] MEDS: VANCOMYCIN IV 1,250 MG in IV DEXTROSE 5% 250 ML IV SCH (02:54)
[2023-07-28] MEDS: CEFEPIME HCL 2 G in IV DEXTROSE 5% 100 ML IV SCH ×2 (05:27→15:13)
[2023-07-28] MEDS: PANTOPRAZOLE SODIUM 40 MG TABLET.DR PO SCH (07:13)
[2023-07-28] MEDS: BLOOD SUGAR DIAGNOSTIC 1 EACH STRIP VI SCH ×4 (07:13→22:00)
[2023-07-28] MEDS: GLUCERNA SHAKE 237 ML CAN PO SCH (08:00)
[2023-07-28] MEDS: DIGOXIN 125 MCG TABLET PO SCH (08:32)
[2023-07-28] MEDS: SENNOSIDES 1 TABLET PO SCH ×2 (08:32→16:38)
[2023-07-28] MEDS: ALLOPURINOL 300 MG TABLET PO SCH (08:33)
[2023-07-28] MEDS: METFORMIN HCL 500 MG TABLET PO SCH ×2 (08:33→17:23)
[2023-07-28] MEDS: GABAPENTIN 300 MG CAPSULE PO SCH ×3 (08:33→17:23)
[2023-07-28] MEDS: METOPROLOL TARTRATE 50 MG TABLET PO SCH ×2 (08:36→21:06)
[2023-07-28] MEDS: PAROXETINE HCL 10 MG TABLET PO SCH (08:54)
[2023-07-28] MEDS: MEGESTROL ACETATE 400 MG/10 ML LIQUID UDC PO SCH (08:54)
[2023-07-28] MEDS: CYANOCOBALAMIN 1,000 MCG TABLET PO SCH (08:55)
[2023-07-28] MEDS: OXYBUTYNIN CHLORIDE 5 MG TABLET PO SCH ×2 (08:55→17:21)
[2023-07-28] MEDS: CHOLECALCIFEROL 1,000 UNIT TABLET PO SCH (08:56)
[2023-07-28] MEDS: REMEDY ESSENTIAL ZINC PASTE 113 GM TOP SCH ×2 (08:56→21:00)
[2023-07-28] MEDS: SODIUM HYPOCHLORITE 0.125% (QUARTER STRENGTH) 473 ML BOTTLE TP SCH (08:57)
[2023-07-28] MEDS: PROTEIN SUPPLEMENT (PROSTAT) 30 ML LIQUID PO SCH (08:57)
[2023-07-28] MEDS: VANCOMYCIN FOR PO/GT/NG USE PO SCH ×2 (08:57→15:13)
[2023-07-28] MEDS: INSULIN REGULAR, HUMAN 300 UNIT/3 ML VIAL SQ PRN ×3 (09:43→17:25)
[2023-07-28] MEDS: LORAZEPAM 1 MG TABLET PO PRN ×2 (10:12→21:06)
[2023-07-28] MEDS: QUETIAPINE FUMARATE 25 MG TABLET PO PRN ×2 (11:02→11:05)
[2023-07-28] MEDS ORDERED: MEROPENEM 1,000 MG in IV NORMAL SALINE 50 ML IV SCH (16:00)
[2023-07-28] MEDS: MEROPENEM 1 G in IV NORMAL SALINE 100 ML IV SCH ×2 (16:33→23:53)
[2023-07-28] MEDS: RIVAROXABAN 10 MG TABLET PO SCH (17:22)
[2023-07-28] MEDS: TAMSULOSIN HCL 0.4 MG CAP.SR.24H PO SCH (21:06)
[2023-07-28] MEDS: ATORVASTATIN 20 MG TABLET PO SCH (21:06)
[2023-07-28] MEDS: ACETAMINOPHEN 325 MG TABLET PO PRN (23:55)
[2023-07-29] VITALS (8 sets, daily range): BP systolic 97–123; BP diastolic 50–97; TEMP 97.5–98.2; O2SAT 99–100
[2023-07-29] MEDS: MORPHINE SULFATE 2 MG/1 ML DISP.SYRIN IV PRN ×2 (01:09→04:43)
[2023-07-29 05:07] LABS: BASOPHILS % (AUTO) 0.7 % (0.0-2.0); EOSINOPHILS # (AUTO) 0.1 K/uL (0.0-0.7); EOSINOPHILS % (AUTO) 1.2 % (0.0-7.0); HEMATOCRIT 23.7 % (36.7-47.1); HEMOGLOBIN 7.8 g/dL (12.5-16.3); LYMPHOCYTES # (AUTO) 1.5 K/uL (0.8-4.8); MEAN CORPUSCULAR HEMOGLOBIN 30.4 uug (23.8-33.4); MEAN CORPUSCULAR HGB CONC 33 g/dL (32.5-36.3); MEAN CORPUSCULAR VOLUME 93.1 fL (73.0-96.2); MONOCYTES # (AUTO) 0.4 K/uL (0.1-1.30); MONOCYTES % (AUTO) 6.3 % (0.0-11.0); NEUTROPHILS # (AUTO) 4.2 K/uL (1.8-8.9); NEUTROPHILS % (AUTO) 67.8 % (38.5-71.5); PLATELET COUNT (AUTO) 239 K/uL (152-348); RED BLOOD CELL COUNT(AUTO) 2.55 MIL/uL (4.06-5.63); RED CELL DISTRIBUTION WIDTH 15.4 % (12.1-16.2); WHITE BLOOD COUNT (AUTO) 6.2 K/uL (3.6-10.2)
[2023-07-29 05:16] LABS: DIFFERENTIAL COMMENT 1
[2023-07-29 05:17] LABS: CALCIUM 8.6 mg/dL (8.5-10.1); CREATININE 0.7 mg/dL (0.6-1.3); POTASSIUM 4.1 mmol/L (3.5-5.1)
[2023-07-29] MEDS: LORAZEPAM 1 MG TABLET PO PRN (06:01)
[2023-07-29] MEDS: PANTOPRAZOLE SODIUM 40 MG TABLET.DR PO SCH (06:01)
[2023-07-29] MEDS: BLOOD SUGAR DIAGNOSTIC 1 EACH STRIP VI SCH ×4 (06:32→20:07)
[2023-07-29] MEDS: MEROPENEM 1 G in IV NORMAL SALINE 100 ML IV SCH ×2 (08:26→16:20)
[2023-07-29] MEDS: CHOLECALCIFEROL 1,000 UNIT TABLET PO SCH (08:26)
[2023-07-29] MEDS: METFORMIN HCL 500 MG TABLET PO SCH ×2 (08:26→17:04)
[2023-07-29] MEDS: DIGOXIN 125 MCG TABLET PO SCH (08:27)
[2023-07-29] MEDS: METOPROLOL TARTRATE 50 MG TABLET PO SCH ×2 (08:27→20:06)
[2023-07-29] MEDS: MEGESTROL ACETATE 400 MG/10 ML LIQUID UDC PO SCH (08:27)
[2023-07-29] MEDS: GABAPENTIN 300 MG CAPSULE PO SCH ×3 (08:27→16:57)
[2023-07-29] MEDS: CYANOCOBALAMIN 1,000 MCG TABLET PO SCH (08:28)
[2023-07-29] MEDS: PAROXETINE HCL 10 MG TABLET PO SCH (08:28)
[2023-07-29] MEDS: OXYBUTYNIN CHLORIDE 5 MG TABLET PO SCH ×2 (08:29→17:04)
[2023-07-29] MEDS: REMEDY ESSENTIAL ZINC PASTE 113 GM TOP SCH ×2 (08:30→20:07)
[2023-07-29] MEDS: SODIUM HYPOCHLORITE 0.125% (QUARTER STRENGTH) 473 ML BOTTLE TP SCH (08:30)
[2023-07-29] MEDS: ALLOPURINOL 300 MG TABLET PO SCH (08:33)
[2023-07-29] MEDS: SENNOSIDES 1 TABLET PO SCH ×2 (09:20→16:57)
[2023-07-29] MEDS ORDERED: QUETIAPINE FUMARATE 25 MG TABLET PO PRN (17:00)
[2023-07-29] MEDS: INSULIN REGULAR, HUMAN 300 UNIT/3 ML VIAL SQ PRN (17:03)
[2023-07-29] MEDS: RIVAROXABAN 10 MG TABLET PO SCH (17:06)
[2023-07-29] MEDS ORDERED: ATOR20TA PO (20:04)
[2023-07-29] MEDS ORDERED: MEGE400O4 PO (20:04)
[2023-07-29] MEDS ORDERED: RIVA10TA PO (20:04)
[2023-07-29] MEDS ORDERED: PARO10TA4 PO (20:04)
[2023-07-29] MEDS ORDERED: GABA300C PO (20:04)
[2023-07-29] MEDS ORDERED: METO50TA16 PO (20:04)
[2023-07-29] MEDS ORDERED: DIGO125T5 PO (20:04)
[2023-07-29] MEDS ORDERED: INSU100V28 SQ (20:04)
[2023-07-29] MEDS ORDERED: QUET25TA36 PO (20:04)
[2023-07-29] MEDS ORDERED: CYAN-51 PO (20:04)
[2023-07-29] MEDS ORDERED: MERO1VIA23 IV (20:04)
[2023-07-29] MEDS: ATORVASTATIN 20 MG TABLET PO SCH (20:05)
[2023-07-29] MEDS: TAMSULOSIN HCL 0.4 MG CAP.SR.24H PO SCH (20:05)
== END 2023-07-29 22:51 | disposition short-term general hospital (02) | DRG 628 ==
LOC: ER 13:22 → TELE3 20:47 → MEDSURG3 21:15 → TELE3 07-17 08:05 → TELE-TD3 07-17 10:44 → TELE3 07-19 08:11 → CCU 07-23 07:49
PROVIDERS: ADMIT Internal Medicine; ATTEND Nurse Practitioner Acute Care
PROC: 05HY33Z Insertion of Infusion Device into Upper Vein, Percutaneous Approach (ICD-10-PCS; 2023-07-21)
PROC: 0QB13ZZ Excision of Sacrum, Percutaneous Approach (ICD-10-PCS; principal; 2023-07-22)
PROC: 0QB13ZZ Excision of Sacrum, Percutaneous Approach (ICD-10-PCS; 2023-07-27)
PROC: 05H533Z Insertion of Infusion Device into Right Subclavian Vein, Percutaneous Approach (ICD-10-PCS; 2023-07-29)
PROC: B546ZZA Ultrasonography of Right Subclavian Vein, Guidance (ICD-10-PCS; 2023-07-29)
DX: R62.7 Adult failure to thrive (principal); L89.154 Pressure ulcer of sacral region, stage 4; N39.0 Urinary tract infection, site not specified; E87.20 Acidosis, unspecified; A04.72 Enterocolitis due to Clostridium difficile, not specified as recurrent; S22.081A Stable burst fracture of T11-T12 vertebra, initial encounter for closed fracture; I48.92 Unspecified atrial flutter; D68.69 Other thrombophilia; I47.1 Supraventricular tachycardia; I50.22 Chronic systolic (congestive) heart failure; M46.28 Osteomyelitis of vertebra, sacral and sacrococcygeal region; M80.88XA Other osteoporosis with current pathological fracture, vertebra(e), initial encounter for fracture; F03.94 Unspecified dementia, unspecified severity, with anxiety; F03.93 Unspecified dementia, unspecified severity, with mood disturbance; F03.92 Unspecified dementia, unspecified severity, with psychotic disturbance; G93.40 Encephalopathy, unspecified; L89.629 Pressure ulcer of left heel, unspecified stage; Z74.09 Other reduced mobility; I48.0 Paroxysmal atrial fibrillation; I11.0 Hypertensive heart disease with heart failure; Z79.82 Long term (current) use of aspirin; Z79.84 Long term (current) use of oral hypoglycemic drugs; Z79.899 Other long term (current) drug therapy; Z86.19 Personal history of other infectious and parasitic diseases; N40.0 Benign prostatic hyperplasia without lower urinary tract symptoms; D63.8 Anemia in other chronic diseases classified elsewhere; E11.69 Type 2 diabetes mellitus with other specified complication; E78.5 Hyperlipidemia, unspecified; E87.6 Hypokalemia; F29 Unspecified psychosis not due to a substance or known physiological condition; F41.9 Anxiety disorder, unspecified; Z20.822 Contact with and (suspected) exposure to COVID-19; Z87.440 Personal history of urinary (tract) infections; Z79.01 Long term (current) use of anticoagulants; Z79.4 Long term (current) use of insulin; F39 Unspecified mood [affective] disorder; B96.89 Other specified bacterial agents as the cause of diseases classified elsewhere; G47.33 Obstructive sleep apnea (adult) (pediatric); Z74.01 Bed confinement status
CPT/HCPCS: 36415; 70030-TC; 70551; 71045; 72100; 72220; 82747; 83605; 83735; 83921; 84443; 84484; 85014; 85025; 85730; 86140; 87040; 93005; A4663; A6209; A6213; C1758; C9113; G0378; J0153; J0692; J0696; J1160; J1650; J1815; J2060; J2185; J2270; J2543; J3370; J3475; J3480; J3490; J7040; J7050; J8999

== ENCOUNTER 2023-08-02 17:19 | Inpatient (IN) | payer MEDICARE, OTHER ==
[~2023-08-02] VITALS: Ht 182.9 cm; Wt 92.5 kg
[2023-08-02 17:00] VITALS: BP 136/74
[~2023-08-02 17:19] MED LIST changes: -ASCO500T21 PO; +ATOR20TA PO; +CYAN-51 PO; +DIGO125T5 PO; -GABA-532 PO; +GABA300C PO; -INSU100I26 SQ; +INSU100V28 SQ; -Insulin Glargine,Hum SQ; +MEGE400O4 PO; +MERO1VIA23 IV; -METR500T PO; -PANT40TA49 PO; +PARO10TA4 PO; -SODI473S8 TP; -ZINC1CAP3 PO
[2023-08-02] MEDS ORDERED: PANT40TA49 PO (17:51)
[2023-08-02] MEDS ORDERED: CEFT1VIA15 IV (17:51)
[2023-08-02] MEDS ORDERED: Medication Not On Formulary EA (Cyclobenzaprine Hcl 10 MG) PO PRN (18:15)
[2023-08-02] MEDS ORDERED: REMEDY ESSENTIAL ZINC PASTE 113 GM TP PRN (18:15)
[2023-08-02] MEDS ORDERED: ONDANSETRON 4 MG/2 ML VIAL IV PRN (18:15)
[2023-08-02] MEDS ORDERED: BISACODYL 10 MG SUPP.RECT RC PRN (18:15)
[2023-08-02] MEDS ORDERED: MAGNESIUM HYDROXIDE 30 ML LIQUID UDC PO PRN (18:15)
[2023-08-02 20:13] VITALS: BP 127/70; TEMP 98.4; O2SAT 96
[2023-08-02] MEDS: METOPROLOL TARTRATE 50 MG TABLET PO SCH (20:37)
[2023-08-02] MEDS: ATORVASTATIN 20 MG TABLET PO SCH (20:37)
[2023-08-02] MEDS: FAMOTIDINE 20 MG TABLET PO SCH (20:37)
[2023-08-02] MEDS ORDERED: DEXTROSE 50% 50 ML DISP.SYRIN IV PRN (20:45)
[2023-08-02] MEDS: BLOOD SUGAR DIAGNOSTIC 1 EACH STRIP VI SCH (21:22)
[2023-08-02] MEDS: INSULIN REGULAR, HUMAN 300 UNITS/3 ML VIAL SQ PRN (21:25)
[2023-08-02] MEDS: CEFEPIME HCL 2 G in IV DEXTROSE 5% 100 ML IV SCH (21:49)
[2023-08-03 04:00] VITALS: BP 124/68; TEMP 98.1; O2SAT 99
[2023-08-03] MEDS: QUETIAPINE FUMARATE 25 MG TABLET PO PRN (05:04)
[2023-08-03] MEDS: CEFEPIME HCL 2 G in IV DEXTROSE 5% 100 ML IV SCH (05:35)
[2023-08-03] MEDS: TRAMADOL HCL 50 MG TABLET PO PRN (05:53)
[2023-08-03] MEDS: BLOOD SUGAR DIAGNOSTIC 1 EACH STRIP VI SCH ×4 (07:02→20:47)
[2023-08-03 07:25] LABS: BASOPHILS % (AUTO) 0.1 % (0.0-2.0); HEMATOCRIT 28.3 % (36.7-47.1); HEMOGLOBIN 9.5 g/dL (12.5-16.3); LYMPHOCYTES # (AUTO) 1.5 K/uL (0.8-4.8); LYMPHOCYTES % (AUTO) 15.6 % (20.5-51.5); MEAN CORPUSCULAR HGB CONC 34 g/dL (32.5-36.3); MEAN CORPUSCULAR VOLUME 92.2 fL (73.0-96.2); MONOCYTES # (AUTO) 0.8 K/uL (0.1-1.30); MONOCYTES % (AUTO) 8.6 % (0.0-11.0); NEUTROPHILS # (AUTO) 7.1 K/uL (1.8-8.9); NEUTROPHILS % (AUTO) 75.7 % (38.5-71.5); PLATELET COUNT (AUTO) 364 K/uL (152-348); RED BLOOD CELL COUNT(AUTO) 3.06 MIL/uL (4.06-5.63); RED CELL DISTRIBUTION WIDTH 15.3 % (12.1-16.2); WHITE BLOOD COUNT (AUTO) 9.4 K/uL (3.6-10.2)
[2023-08-03 07:32] LABS: DIFFERENTIAL COMMENT 1
[2023-08-03 07:36] LABS: CREATININE 0.8 mg/dL (0.6-1.3); MAGNESIUM 1.7 mg/dL (1.8-2.4); PHOSPHOROUS 2.6 mg/dL (2.5-4.9); POTASSIUM 3.5 mmol/L (3.5-5.1)
[2023-08-03] MEDS: OXYBUTYNIN CHLORIDE 5 MG TABLET PO SCH ×2 (08:54→16:58)
[2023-08-03] MEDS: ASCORBIC ACID 500 MG TABLET PO SCH ×2 (08:54→16:58)
[2023-08-03] MEDS: CHOLECALCIFEROL 1,000 UNIT TABLET PO SCH (08:54)
[2023-08-03] MEDS: CYANOCOBALAMIN 100 MCG TABLET PO SCH (08:54)
[2023-08-03] MEDS: MIRALAX 17 GM POWD.PACK PO SCH ×2 (08:54→16:58)
[2023-08-03] MEDS: GABAPENTIN 300 MG CAPSULE PO SCH ×3 (08:55→16:58)
[2023-08-03] MEDS: PAROXETINE HCL 10 MG TABLET PO SCH (08:55)
[2023-08-03] MEDS: ALLOPURINOL 300 MG TABLET PO SCH (08:55)
[2023-08-03] MEDS: FAMOTIDINE 20 MG TABLET PO SCH ×2 (08:55→20:26)
[2023-08-03] MEDS: METOPROLOL TARTRATE 50 MG TABLET PO SCH ×2 (08:56→20:29)
[2023-08-03] MEDS: SENNOSIDES 1 TABLET PO SCH ×2 (08:59→16:58)
[2023-08-03] MEDS: MEGESTROL ACETATE 400 MG/10 ML LIQUID UDC PO SCH (08:59)
[2023-08-03] MEDS ORDERED: Medication Not On Formulary EA (Gabapentin 1 TAB) PO SCH (09:00)
[2023-08-03] MEDS ORDERED: AMLODIPINE 5 MG TABLET PO SCH (09:00)
[2023-08-03] MEDS ORDERED: PANTOPRAZOLE SODIUM 40 MG TABLET.DR PO SCH ×2 (09:00)
[2023-08-03] MEDS ORDERED: METOPROLOL TARTRATE PO SCH (09:00)
[2023-08-03] MEDS ORDERED: SOLIFENACIN SUCCINATE 5 MG TABEC PO SCH (09:00)
[2023-08-03] MEDS ORDERED: Medication Not On Formulary EA (Cholecalciferol (Vitamin D3) (Vitamin D3) 1 CAP) PO SCH (09:00)
[2023-08-03] MEDS ORDERED: CHLORTHALIDONE 25 MG TABLET PO SCH (09:00)
[2023-08-03] MEDS ORDERED: Medication Not On Formulary EA (Ascorbic Acid (Vitamin C) 1 CAP) PO SCH (09:00)
[2023-08-03] MEDS ORDERED: MEGESTROL ACETATE PO SCH (09:00)
[2023-08-03] MEDS ORDERED: LUBIPROSTONE PO SCH (09:00)
[2023-08-03] MEDS: INSULIN REGULAR, HUMAN 300 UNIT/3 ML VIAL SQ PRN ×3 (09:01→16:47)
[2023-08-03] MEDS: MEROPENEM 1 G in IV NORMAL SALINE 100 ML IV SCH ×2 (10:17→18:19)
[2023-08-03] MEDS ORDERED: MAGNESIUM OXIDE 400 MG TABLET PO ONE (10:30)
[2023-08-03 11:42] VITALS: BP 109/49; TEMP 97.9; O2SAT 100
[2023-08-03] MEDS: SODIUM HYPOCHLORITE 0.125% (QUARTER STRENGTH) 473 ML BOTTLE TP SCH (12:26)
[2023-08-03] MEDS: DIGOXIN 125 MCG TABLET PO SCH (12:32)
[2023-08-03] MEDS ORDERED: SODIUM HYPOCHLORITE 0.125% (QUARTER STRENGTH) 473 ML BOTTLE TP SCH (14:30)
[2023-08-03 16:08] VITALS: BP 119/55; TEMP 97.7; O2SAT 100
[2023-08-03] MEDS: IV NS 1000 ML 1,000 ML IV SCH (18:19)
[2023-08-03] MEDS: RIVAROXABAN 10 MG TABLET PO SCH (18:20)
[2023-08-03] MEDS: TAMSULOSIN HCL 0.4 MG CAP.SR.24H PO SCH (20:26)
[2023-08-03] MEDS: ATORVASTATIN 20 MG TABLET PO SCH (20:27)
[2023-08-03] MEDS: INSULIN REGULAR, HUMAN 300 UNITS/3 ML VIAL SQ PRN (20:55)
[2023-08-03 21:44] VITALS: BP 114/60; TEMP 98.8; O2SAT 99
[2023-08-04] MEDS: MEROPENEM 1 G in IV NORMAL SALINE 100 ML IV SCH ×3 (02:56→17:37)
[2023-08-04] MEDS: BLOOD SUGAR DIAGNOSTIC 1 EACH STRIP VI SCH ×4 (06:00→20:35)
[2023-08-04 08:21] LABS: BASOPHILS % (AUTO) 0.1 % (0.0-2.0); EOSINOPHILS % (AUTO) 0.4 % (0.0-7.0); HEMATOCRIT 29.3 % (36.7-47.1); HEMOGLOBIN 9.6 g/dL (12.5-16.3); LYMPHOCYTES # (AUTO) 2.2 K/uL (0.8-4.8); LYMPHOCYTES % (AUTO) 23.4 % (20.5-51.5); MEAN CORPUSCULAR HEMOGLOBIN 30.5 uug (23.8-33.4); MEAN CORPUSCULAR HGB CONC 33 g/dL (32.5-36.3); MEAN CORPUSCULAR VOLUME 92.8 fL (73.0-96.2); MONOCYTES # (AUTO) 0.6 K/uL (0.1-1.30); MONOCYTES % (AUTO) 6.8 % (0.0-11.0); NEUTROPHILS # (AUTO) 6.5 K/uL (1.8-8.9); NEUTROPHILS % (AUTO) 69.3 % (38.5-71.5); PLATELET COUNT (AUTO) 328 K/uL (152-348); RED BLOOD CELL COUNT(AUTO) 3.16 MIL/uL (4.06-5.63); RED CELL DISTRIBUTION WIDTH 15.2 % (12.1-16.2); WHITE BLOOD COUNT (AUTO) 9.4 K/uL (3.6-10.2)
[2023-08-04 08:30] LABS: DIFFERENTIAL COMMENT 1
[2023-08-04] MEDS: SENNOSIDES 1 TABLET PO SCH ×2 (08:33→17:22)
[2023-08-04] MEDS: IV NS 1000 ML 1,000 ML IV SCH ×2 (08:33→16:23)
[2023-08-04] MEDS: METOPROLOL TARTRATE 50 MG TABLET PO SCH ×2 (08:34→21:00)
[2023-08-04] MEDS: GABAPENTIN 300 MG CAPSULE PO SCH ×3 (08:34→17:22)
[2023-08-04] MEDS: CHOLECALCIFEROL 1,000 UNIT TABLET PO SCH (08:35)
[2023-08-04] MEDS: CYANOCOBALAMIN 100 MCG TABLET PO SCH (08:35)
[2023-08-04] MEDS: OXYBUTYNIN CHLORIDE 5 MG TABLET PO SCH ×2 (08:35→17:23)
[2023-08-04] MEDS: PAROXETINE HCL 10 MG TABLET PO SCH (08:35)
[2023-08-04] MEDS: ASCORBIC ACID 500 MG TABLET PO SCH ×2 (08:35→17:22)
[2023-08-04] MEDS: ALLOPURINOL 300 MG TABLET PO SCH (08:35)
[2023-08-04] MEDS: MIRALAX 17 GM POWD.PACK PO SCH ×2 (08:35→17:23)
[2023-08-04] MEDS: FAMOTIDINE 20 MG TABLET PO SCH ×2 (08:35→20:18)
[2023-08-04 08:42] LABS: THYROID STIMULATING HORMONE 0.094 mIU/mL (0.358-3.740)
[2023-08-04] MEDS ORDERED: MISCELLANEOUS MED XX PRN (08:55)
[2023-08-04] MEDS ORDERED: CELLULOSE,OXIDIZED 4X8 MC PRN (09:00)
[2023-08-04 09:13] LABS: CALCIUM 8.7 mg/dL (8.5-10.1); CARBON DIOXIDE 28 mmol/L (21-32); CHLORIDE 104 mmol/L (98-107); CREATININE 0.6 mg/dL (0.6-1.3); GLUCOSE 134 mg/dL (74-106); MAGNESIUM 1.6 mg/dL (1.8-2.4); PHOSPHOROUS 2.9 mg/dL (2.5-4.9); POTASSIUM 3.9 mmol/L (3.5-5.1); SODIUM SERUM 141 mmol/L (136-145); UREA NITROGEN, BLOOD 16 mg/dL (7-18); URIC ACID 2.1 mg/dL (3.5-7.2)
[2023-08-04] MEDS: MEGESTROL ACETATE 400 MG/10 ML LIQUID UDC PO SCH (09:39)
[2023-08-04] MEDS: SODIUM HYPOCHLORITE 0.125% (QUARTER STRENGTH) 473 ML BOTTLE TP SCH (09:44)
[2023-08-04] MEDS: TRAMADOL HCL 50 MG TABLET PO PRN ×2 (09:53→20:28)
[2023-08-04] MEDS: QUETIAPINE FUMARATE 25 MG TABLET PO PRN (10:22)
[2023-08-04] MEDS: CYCLOBENZAPRINE HCL 10 MG TABLET PO PRN (11:50)
[2023-08-04] MEDS: INSULIN REGULAR, HUMAN 300 UNIT/3 ML VIAL SQ PRN (11:55)
[2023-08-04 12:00] VITALS: BP 138/78; TEMP 97.9; O2SAT 100
[2023-08-04] MEDS: PROTEIN SUPPLEMENT (PROSTAT) 30 ML LIQUID PO SCH ×2 (12:04→17:24)
[2023-08-04] MEDS: ACETAMINOPHEN 325 MG TABLET PO PRN ×2 (12:11→12:23)
[2023-08-04] MEDS: DIGOXIN 125 MCG TABLET PO SCH (12:26)
[2023-08-04 16:00] VITALS: BP 112/49; TEMP 97.8; O2SAT 98
[2023-08-04] MEDS: VANCOMYCIN FOR PO/GT/NG USE PO SCH ×2 (17:37→20:28)
[2023-08-04] MEDS: RIVAROXABAN 10 MG TABLET PO SCH (17:39)
[2023-08-04] MEDS: TAMSULOSIN HCL 0.4 MG CAP.SR.24H PO SCH (20:18)
[2023-08-04] MEDS: ATORVASTATIN 20 MG TABLET PO SCH (20:18)
[2023-08-04 20:32] VITALS: BP 98/57; TEMP 98.2; O2SAT 99
[2023-08-04] MEDS: INSULIN REGULAR, HUMAN 300 UNITS/3 ML VIAL SQ PRN (20:39)
[2023-08-05] MEDS: MEROPENEM 1 G in IV NORMAL SALINE 100 ML IV SCH ×3 (03:19→17:43)
[2023-08-05 04:22] VITALS: BP 129/61; TEMP 98; O2SAT 98
[2023-08-05] MEDS: BLOOD SUGAR DIAGNOSTIC 1 EACH STRIP VI SCH ×4 (05:34→21:20)
[2023-08-05] MEDS: PROTEIN SUPPLEMENT (PROSTAT) 30 ML LIQUID PO SCH ×3 (08:00→17:42)
[2023-08-05 08:02] LABS: BASOPHILS % (AUTO) 0.2 % (0.0-2.0); EOSINOPHILS # (AUTO) 0.1 K/uL (0.0-0.7); EOSINOPHILS % (AUTO) 1.2 % (0.0-7.0); HEMATOCRIT 25.8 % (36.7-47.1); HEMOGLOBIN 8.6 g/dL (12.5-16.3); LYMPHOCYTES # (AUTO) 2.3 K/uL (0.8-4.8); LYMPHOCYTES % (AUTO) 25.3 % (20.5-51.5); MEAN CORPUSCULAR HEMOGLOBIN 31.1 uug (23.8-33.4); MEAN CORPUSCULAR HGB CONC 33 g/dL (32.5-36.3); MEAN CORPUSCULAR VOLUME 93.6 fL (73.0-96.2); MONOCYTES # (AUTO) 0.6 K/uL (0.1-1.30); NEUTROPHILS # (AUTO) 6.1 K/uL (1.8-8.9); NEUTROPHILS % (AUTO) 67.3 % (38.5-71.5); PLATELET COUNT (AUTO) 262 K/uL (152-348); RED BLOOD CELL COUNT(AUTO) 2.75 MIL/uL (4.06-5.63); RED CELL DISTRIBUTION WIDTH 15.2 % (12.1-16.2); WHITE BLOOD COUNT (AUTO) 9.1 K/uL (3.6-10.2)
[2023-08-05 08:14] LABS: CALCIUM 8.1 mg/dL (8.5-10.1); CARBON DIOXIDE 27 mmol/L (21-32); CHLORIDE 104 mmol/L (98-107); CREATININE 0.6 mg/dL (0.6-1.3); GLUCOSE 242 mg/dL (74-106); POTASSIUM 3.5 mmol/L (3.5-5.1); SODIUM SERUM 135 mmol/L (136-145); UREA NITROGEN, BLOOD 18 mg/dL (7-18)
[2023-08-05 08:20] LABS: DIFFERENTIAL COMMENT 1
[2023-08-05 08:45] LABS: ERYTHROCYTE SEDIMENTATION RATE 48 MM/HR (0-15)
[2023-08-05] MEDS: GABAPENTIN 300 MG CAPSULE PO SCH ×3 (09:00→17:42)
[2023-08-05] MEDS: SENNOSIDES 1 TABLET PO SCH ×2 (09:00→17:42)
[2023-08-05] MEDS: OXYBUTYNIN CHLORIDE 5 MG TABLET PO SCH ×2 (09:00→17:41)
[2023-08-05] MEDS: VANCOMYCIN FOR PO/GT/NG USE PO SCH ×4 (09:00→21:48)
[2023-08-05] MEDS: MIRALAX 17 GM POWD.PACK PO SCH ×2 (09:00→17:41)
[2023-08-05] MEDS: METOPROLOL TARTRATE 50 MG TABLET PO SCH ×2 (11:46→21:18)
[2023-08-05] MEDS: MEGESTROL ACETATE 400 MG/10 ML LIQUID UDC PO SCH (11:46)
[2023-08-05] MEDS: CHOLECALCIFEROL 1,000 UNIT TABLET PO SCH (11:47)
[2023-08-05] MEDS: ASCORBIC ACID 500 MG TABLET PO SCH ×2 (11:47→17:42)
[2023-08-05] MEDS: CYANOCOBALAMIN 100 MCG TABLET PO SCH (11:47)
[2023-08-05] MEDS: ALLOPURINOL 300 MG TABLET PO SCH (11:47)
[2023-08-05] MEDS: FAMOTIDINE 20 MG TABLET PO SCH ×2 (11:48→21:47)
[2023-08-05 11:55] VITALS: BP 100/54; TEMP 97.9; O2SAT 100
[2023-08-05] MEDS: PAROXETINE HCL 10 MG TABLET PO SCH (11:58)
[2023-08-05] MEDS: DIGOXIN 125 MCG TABLET PO SCH (11:58)
[2023-08-05] MEDS: INSULIN REGULAR, HUMAN 300 UNIT/3 ML VIAL SQ PRN ×2 (12:03→17:41)
[2023-08-05 16:12] VITALS: BP 90/44; TEMP 98.2; O2SAT 99
[2023-08-05] MEDS: RIVAROXABAN 10 MG TABLET PO SCH (17:36)
[2023-08-05] MEDS: IV NS 1000 ML 1,000 ML IV SCH (17:42)
[2023-08-05 20:00] VITALS: BP 124/59; TEMP 98.1; O2SAT 99
[2023-08-05] MEDS: TAMSULOSIN HCL 0.4 MG CAP.SR.24H PO SCH (21:18)
[2023-08-05] MEDS: ATORVASTATIN 20 MG TABLET PO SCH (21:18)
[2023-08-05] MEDS: INSULIN REGULAR, HUMAN 300 UNITS/3 ML VIAL SQ PRN (21:45)
[2023-08-05] MEDS: QUETIAPINE FUMARATE 25 MG TABLET PO PRN (23:51)
[2023-08-06] VITALS: BP 118/57; TEMP 98; O2SAT 98
[2023-08-06] MEDS: CYCLOBENZAPRINE HCL 10 MG TABLET PO PRN ×2 (00:36→17:08)
[2023-08-06] MEDS: IV NS 1000 ML 1,000 ML IV SCH (00:41)
[2023-08-06] MEDS ORDERED: LORAZEPAM 2 MG/1 ML VIAL IV ONE (01:25)
[2023-08-06] MEDS: MEROPENEM 1 G in IV NORMAL SALINE 100 ML IV SCH ×3 (02:41→17:11)
[2023-08-06 04:00] VITALS: BP 104/52; TEMP 97.8; O2SAT 97
[2023-08-06] MEDS: BLOOD SUGAR DIAGNOSTIC 1 EACH STRIP VI SCH ×4 (06:39→21:39)
[2023-08-06] MEDS: SODIUM HYPOCHLORITE 0.125% (QUARTER STRENGTH) 473 ML BOTTLE TP SCH ×2 (07:57→09:11)
[2023-08-06] MEDS: INSULIN REGULAR, HUMAN 300 UNIT/3 ML VIAL SQ PRN ×3 (07:59→16:29)
[2023-08-06] MEDS: CHOLECALCIFEROL 1,000 UNIT TABLET PO SCH (09:00)
[2023-08-06] MEDS: ASCORBIC ACID 500 MG TABLET PO SCH ×2 (09:07→17:08)
[2023-08-06] MEDS: MEGESTROL ACETATE 400 MG/10 ML LIQUID UDC PO SCH (09:07)
[2023-08-06] MEDS: MIRALAX 17 GM POWD.PACK PO SCH ×2 (09:07→17:07)
[2023-08-06] MEDS: FAMOTIDINE 20 MG TABLET PO SCH ×3 (09:07→22:00)
[2023-08-06] MEDS: OXYBUTYNIN CHLORIDE 5 MG TABLET PO SCH ×2 (09:08→17:08)
[2023-08-06] MEDS: PAROXETINE HCL 10 MG TABLET PO SCH (09:08)
[2023-08-06] MEDS: ALLOPURINOL 300 MG TABLET PO SCH (09:08)
[2023-08-06] MEDS: CYANOCOBALAMIN 100 MCG TABLET PO SCH (09:08)
[2023-08-06] MEDS: GABAPENTIN 300 MG CAPSULE PO SCH ×3 (09:09→17:08)
[2023-08-06] MEDS: SENNOSIDES 1 TABLET PO SCH ×2 (09:09→17:08)
[2023-08-06] MEDS: METOPROLOL TARTRATE 50 MG TABLET PO SCH ×3 (09:10→22:00)
[2023-08-06] MEDS: PROTEIN SUPPLEMENT (PROSTAT) 30 ML LIQUID PO SCH ×3 (09:10→17:32)
[2023-08-06] MEDS: VANCOMYCIN FOR PO/GT/NG USE PO SCH ×5 (09:13→22:00)
[2023-08-06] MEDS: QUETIAPINE FUMARATE 25 MG TABLET PO PRN (09:29)
[2023-08-06 11:53] VITALS: BP 90/44; TEMP 98; O2SAT 100
[2023-08-06] MEDS: DIGOXIN 125 MCG TABLET PO SCH (13:45)
[2023-08-06] MEDS: TRAMADOL HCL 50 MG TABLET PO PRN (13:53)
[2023-08-06 16:11] VITALS: BP 96/54; TEMP 97.4; O2SAT 99
[2023-08-06] MEDS: RIVAROXABAN 10 MG TABLET PO SCH (17:09)
[2023-08-06 20:00] VITALS: BP 126/62; TEMP 98.6; O2SAT 99
[2023-08-06] MEDS: TAMSULOSIN HCL 0.4 MG CAP.SR.24H PO SCH ×2 (21:40→22:00)
[2023-08-06] MEDS: ATORVASTATIN 20 MG TABLET PO SCH ×2 (21:40→22:00)
[2023-08-06] MEDS: INSULIN REGULAR, HUMAN 300 UNITS/3 ML VIAL SQ PRN (21:59)
[2023-08-07] MEDS: MEROPENEM 1 G in IV NORMAL SALINE 100 ML IV SCH ×3 (02:02→17:29)
[2023-08-07 04:39] VITALS: BP 128/68; TEMP 98; O2SAT 99
[2023-08-07] MEDS: TRAMADOL HCL 50 MG TABLET PO PRN ×2 (04:41→13:31)
[2023-08-07] MEDS: BLOOD SUGAR DIAGNOSTIC 1 EACH STRIP VI SCH ×4 (06:16→20:52)
[2023-08-07 07:14] LABS: BASOPHILS % (AUTO) 0.5 % (0.0-2.0); EOSINOPHILS # (AUTO) 0.1 K/uL (0.0-0.7); EOSINOPHILS % (AUTO) 1.9 % (0.0-7.0); HEMATOCRIT 29.3 % (36.7-47.1); HEMOGLOBIN 9.6 g/dL (12.5-16.3); LYMPHOCYTES # (AUTO) 2.1 K/uL (0.8-4.8); LYMPHOCYTES % (AUTO) 26.4 % (20.5-51.5); MEAN CORPUSCULAR HEMOGLOBIN 31.2 uug (23.8-33.4); MEAN CORPUSCULAR HGB CONC 33 g/dL (32.5-36.3); MEAN CORPUSCULAR VOLUME 95.4 fL (73.0-96.2); MONOCYTES # (AUTO) 0.6 K/uL (0.1-1.30); MONOCYTES % (AUTO) 7.3 % (0.0-11.0); NEUTROPHILS # (AUTO) 5.1 K/uL (1.8-8.9); NEUTROPHILS % (AUTO) 63.9 % (38.5-71.5); PLATELET COUNT (AUTO) 225 K/uL (152-348); RED BLOOD CELL COUNT(AUTO) 3.07 MIL/uL (4.06-5.63); RED CELL DISTRIBUTION WIDTH 15.7 % (12.1-16.2)
[2023-08-07 07:27] LABS: CALCIUM 8.3 mg/dL (8.5-10.1); CARBON DIOXIDE 26 mmol/L (21-32); CHLORIDE 108 mmol/L (98-107); CREATININE 0.6 mg/dL (0.6-1.3); DIFFERENTIAL COMMENT 1; GLUCOSE 175 mg/dL (74-106); SODIUM SERUM 139 mmol/L (136-145); UREA NITROGEN, BLOOD 11 mg/dL (7-18)
[2023-08-07 07:33] LABS: POTASSIUM 4.9 mmol/L (3.5-5.1)
[2023-08-07] MEDS: PROTEIN SUPPLEMENT (PROSTAT) 30 ML LIQUID PO SCH ×3 (08:00→17:16)
[2023-08-07] MEDS: CYANOCOBALAMIN 100 MCG TABLET PO SCH (10:00)
[2023-08-07] MEDS: VANCOMYCIN FOR PO/GT/NG USE PO SCH ×4 (10:00→20:52)
[2023-08-07] MEDS: PAROXETINE HCL 10 MG TABLET PO SCH (10:01)
[2023-08-07] MEDS: MIRALAX 17 GM POWD.PACK PO SCH ×2 (10:01→17:13)
[2023-08-07] MEDS: FAMOTIDINE 20 MG TABLET PO SCH ×2 (10:01→20:52)
[2023-08-07] MEDS: METOPROLOL TARTRATE 50 MG TABLET PO SCH ×2 (10:01→20:51)
[2023-08-07] MEDS: ALLOPURINOL 300 MG TABLET PO SCH (10:01)
[2023-08-07] MEDS: ASCORBIC ACID 500 MG TABLET PO SCH ×2 (10:01→17:13)
[2023-08-07] MEDS: GABAPENTIN 300 MG CAPSULE PO SCH ×3 (10:01→17:13)
[2023-08-07] MEDS: CHOLECALCIFEROL 1,000 UNIT TABLET PO SCH (10:02)
[2023-08-07] MEDS: SENNOSIDES 1 TABLET PO SCH ×2 (10:02→17:13)
[2023-08-07] MEDS: MEGESTROL ACETATE 400 MG/10 ML LIQUID UDC PO SCH (10:02)
[2023-08-07] MEDS: SODIUM HYPOCHLORITE 0.125% (QUARTER STRENGTH) 473 ML BOTTLE TP SCH (10:03)
[2023-08-07] MEDS: QUETIAPINE FUMARATE 25 MG TABLET PO PRN ×2 (10:09→20:51)
[2023-08-07] MEDS: OXYBUTYNIN CHLORIDE 5 MG TABLET PO SCH ×2 (10:09→17:13)
[2023-08-07 11:42] VITALS: BP 114/59; TEMP 98.6; O2SAT 100
[2023-08-07] MEDS: INSULIN REGULAR, HUMAN 300 UNIT/3 ML VIAL SQ PRN ×2 (11:56→17:16)
[2023-08-07] MEDS: DIGOXIN 125 MCG TABLET PO SCH (13:32)
[2023-08-07] MEDS: ACETAMINOPHEN 325 MG TABLET PO PRN (15:24)
[2023-08-07 16:20] VITALS: BP 106/46; TEMP 97.4; O2SAT 98
[2023-08-07] MEDS: RIVAROXABAN 10 MG TABLET PO SCH (17:31)
[2023-08-07 20:00] VITALS: BP 105/60; TEMP 100.1; O2SAT 95
[2023-08-07] MEDS: ATORVASTATIN 20 MG TABLET PO SCH (20:51)
[2023-08-07] MEDS: TAMSULOSIN HCL 0.4 MG CAP.SR.24H PO SCH (20:52)
[2023-08-07] MEDS: INSULIN REGULAR, HUMAN 300 UNITS/3 ML VIAL SQ PRN (21:10)
[2023-08-07 21:30] VITALS: TEMP 98.9
[2023-08-08] MEDS: MEROPENEM 1 G in IV NORMAL SALINE 100 ML IV SCH ×3 (01:45→17:30)
[2023-08-08 04:00] VITALS: BP 139/85; TEMP 96; O2SAT 95
[2023-08-08] MEDS: BLOOD SUGAR DIAGNOSTIC 1 EACH STRIP VI SCH ×4 (06:07→20:30)
[2023-08-08] MEDS: TRAMADOL HCL 50 MG TABLET PO PRN ×3 (07:04→22:24)
[2023-08-08] MEDS: CHOLECALCIFEROL 1,000 UNIT TABLET PO SCH (09:22)
[2023-08-08] MEDS: CYANOCOBALAMIN 100 MCG TABLET PO SCH (09:23)
[2023-08-08] MEDS: ALLOPURINOL 300 MG TABLET PO SCH (09:24)
[2023-08-08] MEDS: FAMOTIDINE 20 MG TABLET PO SCH ×2 (09:24→20:57)
[2023-08-08] MEDS: ACETAMINOPHEN 325 MG TABLET PO PRN ×2 (09:24→17:29)
[2023-08-08] MEDS: ASCORBIC ACID 500 MG TABLET PO SCH ×2 (09:25→17:29)
[2023-08-08] MEDS: GABAPENTIN 300 MG CAPSULE PO SCH ×3 (09:25→17:29)
[2023-08-08] MEDS: PAROXETINE HCL 10 MG TABLET PO SCH (09:25)
[2023-08-08] MEDS: SENNOSIDES 1 TABLET PO SCH ×2 (09:25→17:29)
[2023-08-08] MEDS: OXYBUTYNIN CHLORIDE 5 MG TABLET PO SCH ×2 (09:25→17:29)
[2023-08-08] MEDS: METOPROLOL TARTRATE 50 MG TABLET PO SCH ×2 (09:25→20:57)
[2023-08-08] MEDS: MIRALAX 17 GM POWD.PACK PO SCH ×2 (09:26→17:00)
[2023-08-08] MEDS: QUETIAPINE FUMARATE 25 MG TABLET PO PRN ×2 (09:26→22:23)
[2023-08-08] MEDS: PROTEIN SUPPLEMENT (PROSTAT) 30 ML LIQUID PO SCH ×3 (09:28→17:38)
[2023-08-08] MEDS: MEGESTROL ACETATE 400 MG/10 ML LIQUID UDC PO SCH (09:35)
[2023-08-08] MEDS: SODIUM HYPOCHLORITE 0.125% (QUARTER STRENGTH) 473 ML BOTTLE TP SCH (09:35)
[2023-08-08] MEDS: VANCOMYCIN FOR PO/GT/NG USE PO SCH ×4 (09:35→20:57)
[2023-08-08 12:00] VITALS: BP 105/61; TEMP 97.6; O2SAT 96
[2023-08-08] MEDS: INSULIN REGULAR, HUMAN 300 UNIT/3 ML VIAL SQ PRN ×3 (12:28→20:33)
[2023-08-08] MEDS: DIGOXIN 125 MCG TABLET PO SCH (12:48)
[2023-08-08] MEDS: RIVAROXABAN 10 MG TABLET PO SCH (17:36)
[2023-08-08 18:53] VITALS: BP 123/57; TEMP 98.1; O2SAT 95
[2023-08-08] MEDS: ATORVASTATIN 20 MG TABLET PO SCH (20:57)
[2023-08-08] MEDS: TAMSULOSIN HCL 0.4 MG CAP.SR.24H PO SCH (20:58)
[2023-08-08 21:12] VITALS: BP 126/62; TEMP 98.2; O2SAT 99
[2023-08-09] MEDS: MEROPENEM 1 G in IV NORMAL SALINE 100 ML IV SCH ×2 (01:28→09:58)
[2023-08-09 04:42] VITALS: BP 126/60; TEMP 98; O2SAT 99
[2023-08-09] MEDS: BLOOD SUGAR DIAGNOSTIC 1 EACH STRIP VI SCH (06:37)
[2023-08-09] MEDS: ALLOPURINOL 300 MG TABLET PO SCH (09:20)
[2023-08-09] MEDS: CYANOCOBALAMIN 100 MCG TABLET PO SCH (09:20)
[2023-08-09] MEDS: MEGESTROL ACETATE 400 MG/10 ML LIQUID UDC PO SCH (09:20)
[2023-08-09] MEDS: METOPROLOL TARTRATE 50 MG TABLET PO SCH (09:21)
[2023-08-09] MEDS: FAMOTIDINE 20 MG TABLET PO SCH (09:21)
[2023-08-09] MEDS: CHOLECALCIFEROL 1,000 UNIT TABLET PO SCH (09:21)
[2023-08-09] MEDS: SENNOSIDES 1 TABLET PO SCH (09:21)
[2023-08-09] MEDS: ASCORBIC ACID 500 MG TABLET PO SCH (09:21)
[2023-08-09] MEDS: GABAPENTIN 300 MG CAPSULE PO SCH (09:21)
[2023-08-09] MEDS: ACETAMINOPHEN 325 MG TABLET PO PRN (09:21)
[2023-08-09] MEDS: PROTEIN SUPPLEMENT (PROSTAT) 30 ML LIQUID PO SCH (09:22)
[2023-08-09] MEDS: SODIUM HYPOCHLORITE 0.125% (QUARTER STRENGTH) 473 ML BOTTLE TP SCH (09:22)
[2023-08-09] MEDS: INSULIN REGULAR, HUMAN 300 UNIT/3 ML VIAL SQ PRN (09:24)
[2023-08-09] MEDS ORDERED: VANC500V PO (09:31)
[2023-08-09] MEDS ORDERED: MERO1PIG IV (09:31)
[2023-08-09] MEDS: VANCOMYCIN FOR PO/GT/NG USE PO SCH (09:34)
[2023-08-09] MEDS: PAROXETINE HCL 10 MG TABLET PO SCH (09:34)
[2023-08-09] MEDS: OXYBUTYNIN CHLORIDE 5 MG TABLET PO SCH (09:34)
[2023-08-09] MEDS: MIRALAX 17 GM POWD.PACK PO SCH (09:34)
[2023-08-09 11:40] VITALS: BP 112/62; TEMP 98.7; O2SAT 96
== END 2023-08-09 12:30 | DRG 981 ==
LOC: MEDSURG3 17:19 → TELE3 08-05 01:00 → MEDSURG3 08-07 08:00
PROVIDERS: ADMIT Nurse Practitioner Acute Care; ATTEND Nurse Practitioner Acute Care
PROC: 0QB13ZZ Excision of Sacrum, Percutaneous Approach (ICD-10-PCS; principal; 2023-08-04)
DX: N39.0 Urinary tract infection, site not specified (principal); G93.41 Metabolic encephalopathy; L89.154 Pressure ulcer of sacral region, stage 4; E44.0 Moderate protein-calorie malnutrition; M46.28 Osteomyelitis of vertebra, sacral and sacrococcygeal region; I48.92 Unspecified atrial flutter; F03.92 Unspecified dementia, unspecified severity, with psychotic disturbance; E11.69 Type 2 diabetes mellitus with other specified complication; E11.42 Type 2 diabetes mellitus with diabetic polyneuropathy; I48.0 Paroxysmal atrial fibrillation; Z79.01 Long term (current) use of anticoagulants; M48.54XD Collapsed vertebra, not elsewhere classified, thoracic region, subsequent encounter for fracture with routine healing; N40.0 Benign prostatic hyperplasia without lower urinary tract symptoms; E83.42 Hypomagnesemia; B96.89 Other specified bacterial agents as the cause of diseases classified elsewhere; Z74.01 Bed confinement status; D63.8 Anemia in other chronic diseases classified elsewhere; G47.33 Obstructive sleep apnea (adult) (pediatric); I25.10 Atherosclerotic heart disease of native coronary artery without angina pectoris; F03.90 Unspecified dementia, unspecified severity, without behavioral disturbance, psychotic disturbance, mood disturbance, and anxiety; E88.09 Other disorders of plasma-protein metabolism, not elsewhere classified; Z86.79 Personal history of other diseases of the circulatory system; Z79.4 Long term (current) use of insulin; R62.7 Adult failure to thrive; Z68.27 Body mass index [BMI] 27.0-27.9, adult; L89.620 Pressure ulcer of left heel, unstageable; I10 Essential (primary) hypertension; E86.1 Hypovolemia; E78.5 Hyperlipidemia, unspecified; Z88.8 Allergy status to other drugs, medicaments and biological substances; Z87.440 Personal history of urinary (tract) infections
CPT/HCPCS: 36415; 82533; 83735; 84100; 84443; 84550; 85025; 85651; 86140; 87040; A4663; A6209; A6213; G0378; J0692; J1815; J2060; J2185; J3370; J7040; J7060; J8999